=== PATIENT | female | born 1935 | race Caucasian/White ===

== ENCOUNTER → 2018-01-04 08:49 | Outpatient (CLI) | payer MEDICARE, OTHER, SELFPAY ==
[2018-01-04 11:27] LABS: Magnesium 1.9 mg/dL (1.6-2.3)
[2018-01-06 14:33] LABS: Lipoprofile NMR SEE SEPARATE REPORTS
== END ==
PROVIDERS: PCP Family Medicine; Visit Provider Specialist
DX: E78.2 Mixed hyperlipidemia (principal); I10 Essential (primary) hypertension
CPT/HCPCS: 36415; 83704; 83735

== ENCOUNTER → 2018-02-15 15:19 | Outpatient (CLI) | payer MEDICARE, OTHER, SELFPAY ==
--- NOTE | 2018-02-15 | DI.MRI.S_ITS ---
PROCEDURE: MR LUMBAR SPINE WO CON INDICATIONS: Low back and left buttock pain TECHNIQUE: Noncontrast sagittal T1 spin echo and T2 fast echo, sagittal STIR, axial T1 and T2 fast spin echo through the lumbar spine. In cases with scoliosis, additional coronal T2 fast spin echo may be performed. COMPARISON: [facility], CR, XR LUMBAR SPINE WITH OLBIQUES PLUS FLEXION EXTENSION, 02/08/2018, 10:45. Merged With [facility], MR, L-SPINE WITHOUT CONTRAST, 05/29/2015, 10:27. Merged With [facility], MR, L-SPINE WITHOUT CONTRAST, 06/07/2014, 18:29. Merged With [facility], MR, L-SPINE WITHOUT CONTRAST, 09/07/2013, 18:30. FINDINGS: Image quality: Excellent. Alignment and Curvature: There is normal bony alignment. Bone Marrow: Marrow is of normal overall signal. No acute vertebral body compression fractures. Spinal Cord: Conus medullaris terminates at the L1 level. Visualized cord demonstrates normal signal and size. Paraspinous Soft Tissues: No paravertebral masses. L1-L2: The superior endplate of L1 shows a further depression with reference to the prior MR scanning from 05/29/15 and also L1 vertebral body bone cement can be seen properly positioned within the central marrow space. Marrow edema is not associated with this mild interval worsening, and therefore it is presumed that some degree of worsening of the previously present compression fracture in that area has occurred between 2014 in the current examination. There is no significant secondary spinal stenosis or foraminal stenosis at this level.. L2-L3: Centrally positioned at L2 vertebroplasty/kyphoplasty bone cement and morphology of the vertebral body has not changed from 2015. A slight posterior disc bulge is present at this level, and facet osteoarthritis is slightly greater on the left than the right with resultant hyperostosis producing mild to moderate left and only mild right foraminal stenosis. Spinal stenosis is not present. L3-L4: The L3 vertebral body shows stable appearing morphology and centrally positioned bone cement. As was seen at the level above left greater than right facet osteoarthritis is present resulting in mild to moderate left and mild right foraminal stenosis. No significant spinal stenosis. L4-L5: Moderately severe degenerative disc disease, as was previously the case. Disc height reduction and desiccation with a small posterior broad-based transverse disc bulge has not worsened. Facet osteoarthritis is moderately severe at this level with osseous hypertrophy resulting in symmetric moderate foraminal stenosis. No disc herniation is present but there is mild concentric spinal stenosis due to the factors noted above. L5-S1: Moderately severe degenerative disc disease with a posterior disc protrusion that is greater than that previously present in 2015, centered at and just to the right of midline and producing only mild spinal stenosis. Moderate facet osteoarthritis is present with asymmetric osseous hypertrophy on the left, producing moderate left and mild right foraminal stenosis with potential for asymmetric left greater than right L5 radiculopathy. IMPRESSION: No acute trauma found. Prior vertebral compression fractures are present with vertebral plasty/kyphoplasty bone cement centrally positioned at L1-L3. The L1 vertebral body compression fracture has mildly worsened from 2015 but shows no current marrow space edema and therefore this represents a chronic but interval change. The degenerative disc disease and facet osteoarthritis present along the lumbosacral spine has mildly worsened and best seen at L5-S1. Relatively mild spinal stenosis is present. No disc herniation is found. Multilevel potential for radiculopathy is present as noted, greater on the left than the right. Dictated by: Osman Tong M.D. on 02/15/2018 at 17:14 Approved by: Osman Tong M.D. on 02/15/2018 at 17:23
== END ==
PROVIDERS: Family Provider Family Medicine; PCP Family Medicine; Visit Provider Physical Medicine & Rehabilitation Pain Medicine
DX: M54.5 Low back pain (principal); M48.56XD Collapsed vertebra, not elsewhere classified, lumbar region, subsequent encounter for fracture with routine healing; M51.37 Other intervertebral disc degeneration, lumbosacral region; M47.896 Other spondylosis, lumbar region
CPT/HCPCS: 72148

== ENCOUNTER → 2018-07-06 07:26 | Outpatient (CLI) | payer MEDICARE, OTHER, SELFPAY ==
[2018-07-06 08:26] LABS: Alanine Aminotransferase 38 IU/L (9-52); Albumin 4.1 g/dL (3.5-5.0); Albumin Globulin Ratio 1.7 (1.0-2.8); Alkaline Phosphatase 91 U/L (38-126); Aspartate Aminotransferase 30 IU/L (14-36); BUN Creatinine Ratio 18.6 (6-22); Bilirubin Total 0.6 mg/dL (0.2-1.3); Blood Urea Nitrogen 13 mg/dL (7-17); Carbon Dioxide 30 mmol/L (22-32); Chloride 99 mmol/L (98-107); Cholesterol 124 mg/dL (140-199); Estimated Glomerular Filt Rate > 60.0 mL/min (>60); Globulin 2.4 g/dL (1.7-4.1); Glucose 101 mg/dL (80-110); HDL Cholesterol 61 mg/dL (40-60); HEMOLYSIS < 15 (0-50); LDL Cholesterol Calculated 45 mg/dL (<100); Potassium 4.5 mmol/L (3.4-5.1); Sodium 139 mmol/L (137-145); Total Protein 6.5 g/dL (6.3-8.2); Triglycerides 89 mg/dL (35-150)
== END ==
PROVIDERS: Family Provider Family Medicine; PCP Family Medicine; Visit Provider Specialist
DX: E78.2 Mixed hyperlipidemia (principal); I10 Essential (primary) hypertension; R00.2 Palpitations
CPT/HCPCS: 36415; 80053; 80061; 83735

== ENCOUNTER 2018-08-24 06:36 | Day surgery (SDC) | payer MEDICARE, OTHER, SELFPAY ==
[2018-08-24] VITALS (8 sets, daily range): BP systolic 99–153; BP diastolic 52–78; PULSE 66–87; RESP 12–18; TEMP 36–36.8; O2SAT 92–96; BMI 28.3
--- NOTE | 2018-08-24 | PATH_ITS ---
[facility] Accession Number: [id number] . 01 Material submitted: . PART A: TRANSVERSE COLON POLYP BIOPSY PART B: ASCENDING COLON POLYP BIOPSIES X2 . 02 Diagnosis: A. Transverse Colon, Polyp, Biopsy: Tubular adenoma. . B. Ascending Colon, Polyp x2, Biopsies: Tubular adenoma in three of four fragments. V/08/25/2018 . 02 Electronically signed: . Luisa Cano MD, Pathologist NPI- [id number] . 01 Gross description: . Received two formalin-filled containers both labeled with the patient's name. . A. In a container labeled transverse colon are three 0.1 to 0.4 cm portions of tissue. Entirely submitted in cassette A. B. In a container labeled ascending colon polyp X2 are four 0.1 to 0.3 cm portions of tissue. Entirely submitted in cassette B. ([facility]:[id number]) /[facility] . 02 Pathologist provided ICD-10: D12.2, D12.3 . 02 CPT . 304006, [id number] Performed at: 01 [facility] [address], [place], [place] [id number] MD Maxx Degroot MD Phone: [phone] Performed at: 02 [facility] [address] [place], [place] [id number] MD Luisa Cano MD Phone: [phone]
[2018-08-24] MEDS: SODIUM CHLORIDE 0.9% 1,000 ML 200 ML IV (07:30)
--- NOTE | 2018-08-24 08:09 | PM.HP.1 ---
History of Present Illness Date Patient Seen: 08/24/18 Time Patient Seen: 08:00 Chief complaint: colonoscopy [id number] Narrative: Patient is a woman his last colonoscopy was over 10 years ago. She has a personal history of polyps and a sister with metastatic GI tract malignancy. Patient History Medical History Hypertension (Chronic) Breast cancer (Resolved) History of PR (myocardial infarction) (Resolved) Heart valve stenosis (Chronic) Surgical History S/P lumpectomy, left breast (Resolved) Status post left breast lumpectomy (Resolved) Family & Social History Social History: household members none Tobacco & Substance use: Smoking Status Never smoker alcohol intake current Meds Home Medications Medication Instructions Recorded Confirmed Type fluoxetine [Prozac] 20 mg PO QDAY #0 07/21/12 07/07/18 History levothyroxine [Tirosint] 75 mcg PO Q DAY #0 07/21/12 07/07/18 History amitriptyline 25 mg tablet 25 mg PO DAILY 07/07/18 07/07/18 History aspirin 81 mg tablet,delayed 81 mg PO DAILY 07/07/18 07/07/18 History release atorvastatin 80 mg tablet 80 mg PO DAILY 07/07/18 07/07/18 History carvedilol 12.5 mg tablet 12.5 mg PO BID 07/07/18 07/07/18 History magnesium oxide 500 mg capsule 500 mg PO DAILY cap 07/07/18 07/07/18 History spironolactone 12.5 mg PO QAM 08/24/18 08/24/18 History Allergies Allergy/AdvReac Type Severity Reaction Status Date / Time morphine Allergy Intermediate VOMITING, Verified 08/24/18 07:34 HIVES metoprolol Allergy Unknown KIDNEY Verified 08/24/18 07:34 FAILURE meperidine AdvReac Mild NAUSEA Verified 08/24/18 07:34 Review of Systems Review of Systems Short of breath with minimal exertion. Has known valvular disease and has been told she will be getting a heart valve at some point. No black or bloody bowel movements. No seizures or blackouts. Does not get chest pain but feels or heart flutter occasionally. Exam Vital Signs (past 8 hours): - 08/24/18 07:35 Temperature 97.5 F L Pulse Rate 75 Respiratory Rate 16 Blood Pressure 153/78 H Pulse Oximetry 96 Oxygen Delivery Method Room Air Narrative Exam Narrative: Obese pleasant woman in no apparent distress. Lungs are clear to auscultation no rales or rhonchi. Heart regular rate and rhythm. A 3/6 systolic murmur heard best at the base. Abdomen is soft nontender without mass. Alert and oriented x3. Assessment & Plan Plan: Assessment/Plan Narrative: Patient for screening colonoscopy. She is 5 years overdue and is aware of that. She just did not come back sooner. I have discussed the procedure and the rationale with the patient including risks of bleeding, perforation which would necessitate a major operation, failure to find remove all lesions and the potential to tattoo. They appeared to understand and wished to proceed. I also talked to her about the potential for heart problems. She does want to be resuscitated should her heart stop.
--- NOTE | 2018-08-24 08:14 | PM.PREOP ---
Pre-operative Note Interval Note History & Physical reviewed/Exam performed by Physician: Yes Changes to H&P: No ASA Class (for procedural sedation): III
[2018-08-24] MEDS: ONDANSETRON 4 MG/2 ML INJ IV (08:18)
[2018-08-24] MEDS: fentaNYL 250 MCG/5 ML INJ IV (08:50)
[2018-08-24] MEDS: MIDAZOLAM 5 MG/5 ML VIAL IV (08:50)
--- NOTE | 2018-08-24 09:03 | PM.OP.ENDO ---
Operative Date/Time/Diagnoses Date of procedure: 08/24/18 Time of procedure: 09:03 Pre-op diagnosis: Screening examination. Personal history of polyps. Positive family history of GI tract cancer. Post-op diagnosis: same (Multiple polyps) Procedure & Clinicians Study performed: Colonoscopy with cold biopsy and hot snare polypectomy Same procedure as scheduled: Yes Indications: Screening Surgeon: Feroz Galvez Procedure Notes SCOAP/Timeout: Performed Procedure in detail: The patient was placed in the left lateral decubitus position and underwent IV sedation directed by the surgeon consisting of fentanyl and Versed. Digital exam was unremarkable. The scope was inserted and advanced through the rectum into the sigmoid, descending, transverse, and ascending colon. I noted scattered diverticulosis. In the ascending colon near the ileocecal valve there were 2 small polyps. One was snared with a hot snare and the other biopsied and snared to complete removal. He has replaced in the same container due to proximity. The cecum was reached identified by the ileocecal valve and the appendiceal opening . The scope was gradually brought out. To Polyps were found at 35 cm. These were removed with snare and biopsy. They also were placed in the same container.. The scope ultimately was retroflexed in the rectum. The appearance was normal. The scope was removed and the patient tolerated the procedure well Scope withdrawal time: 11.5 min Sedation minutes: 45 Findings: diverticulosis (Scattered) and polyp (For small polyps) Specimen(s): other (Polyps) Complications: none Recommendations: Colonscopy in 5 years (If in good health.) Follow up: as needed Disposition: PACU
--- NOTE | 2018-08-24 09:49 | SUR.PHASEII ---
Assited pt with getting dressed. Gave her mesh underwear and a pad . Pt taking po fluids without difficulty. pt denies any complaints . Denies any nausea
== END 2018-08-24 10:01 | disposition home or self-care (01) ==
PROVIDERS: Family Provider Family Medicine; PCP Family Medicine; Visit Provider Specialist
PROC: 0DJD8ZZ Inspection of Lower Intestinal Tract, Via Natural or Artificial Opening Endoscopic (ICD-10-PCS; CPT 45378; principal; 2018-08-24 07:45)
DX: Z86.010 Personal history of colon polyps (principal); Z80.0 Family history of malignant neoplasm of digestive organs; K57.30 Diverticulosis of large intestine without perforation or abscess without bleeding; I10 Essential (primary) hypertension; I25.2 Old myocardial infarction; D12.2 Benign neoplasm of ascending colon; D12.3 Benign neoplasm of transverse colon
CPT/HCPCS: 45385; 45380; 88305; 99152; 99153; J2250; J2405; J3010

== ENCOUNTER → 2018-09-07 09:32 | Outpatient (CLI) | payer MEDICARE, OTHER, SELFPAY ==
--- NOTE | 2018-09-07 | DI.ECHO.S_ITS ---
[facility] +---------+ [facility] +---------+ : : [address] [place] : : : : [id number] : : : : Phone: [phone]+ Echocardiogram Report + + :Name: ADEEL LAGUNAS Study Date: 09/07/2018 Height: 67 in : :[facility] Exam Location: [facility] Weight: 189 lb : : Gender: Female BSA: 2.0 m2 : :: 1935 Age: 83 yrs BP: 142/80 mmHg: :Reason For Study: AORTIC STENOSIS : : Performed By: Ankush Del Real : :Referring: ALCON SON : + + Interpretation Summary Left ventricular systolic function is normal without focal wall motion abnormalities with the ejection fraction visually estimated to be 60-65% and appears slightly less vigorous compared to the previous study. Diastolic parameters suggest a pseudonormalization pattern, consistent with probable elevated filling pressures but this is unchanged compared to the previous study. The right ventricle is normal in size and function and appears unchanged compared to the previous study. The right ventricular systolic pressure is estimated to be at least 26 mmHg based on an estimated right atrial pressure of 3 mm Hg, and is slightly lower compared to the previous study. The left atrium is borderline dilated while right atrial size is normal. The left atrium has mildly decreased in size since the prior echo exam. There is mild mitral regurgitation that is slightly more prominent compared to the previous study. There is mild tricuspid regurgitation and mild pulmonic regurgitation that are unchanged compared to the previous study. There is severe aortic stenosis that is slightly progressive compared to the previous study, now with a peak aortic velocity of 4.1 m/sec compared to 4.0 m/s on the previous study. The aortic valve mean gradient is 41 mmHg compared to 32 mmHg previously and the calculated aortic valve area is now 0.7 temperature control inspector? compared to 0.9 temperature control inspector? with a severity ratio of 0.23 compared to 0.31 previously. There is trace aortic regurgitation that is unchanged compared to the previous study. The ascending aorta is mildly enlarged and measures slightly larger compared to the previous study. Procedure: A two-dimensional transthoracic echocardiogram with color flow and Doppler was performed. The study quality was technically adequate. Comparison is made with the echocardiogram of 10/02/17. The patient was in normal sinus rhythm during the exam. Left Ventricle: The left ventricle is normal in size. Left ventricular wall thickness is mildly increased. Left ventricular systolic function is normal without focal wall motion abnormalities. The ejection fraction is estimated to be 60-65%. This is slightly less vigorous compared to the previous study. Diastolic parameters suggest a pseudonormalization pattern, consistent with probable elevated filling pressures. This is unchanged compared to the previous study. Right Ventricle: The right ventricle is normal in size and function. This is unchanged compared to the previous study. Atria: The left atrium is borderline dilated. The left atrium has mildly decreased in size since the prior echo exam. Right atrial size is normal. The interatrial septum is intact with no evidence for an atrial septal defect. Mitral Valve: There is mild mitral annular calcification. There is mild mitral regurgitation. This is slightly more prominent compared to the previous study. Aortic Valve: The aortic valve is trileaflet. The aortic valve is severely calcified. Leaflet mobility is severely reduced. There is severe aortic stenosis. This is slightly progressive compared to the previous study. The peak aortic velocity is 4.1 m/sec. The peak aortic velocity on the previous exam was 4.0 m/sec. The aortic valve mean gradient is 41 mmHg. The calculated aortic valve area is 0.72 cm2. There is trace aortic regurgitation. This is unchanged compared to the previous study. Tricuspid Valve: The tricuspid valve is normal in structure and function. There is mild tricuspid regurgitation. This is unchanged compared to the previous study. The right ventricular systolic pressure is estimated to be at least 26 mmHg based on an estimated right atrial pressure of 3 mm Hg. This is slightly lower compared to the previous study. Pulmonic Valve: The pulmonic valve is normal in structure and function. There is mild pulmonic regurgitation. This is unchanged compared to the previous study. Great Vessels: The aortic root is normal size. The ascending aorta is mildly enlarged. This is slightly larger compared to the previous study. The aortic arch is normal in size. This is unchanged compared to the previous study. The pulmonary artery is normal size. The IVC is of normal diameter and collapses greater than 50% with a sniff. This suggests a low right atrial pressure of 3 mm Hg. Pericardium/ Pleura There is no pericardial effusion. There is no pleural effusion. MMode/2D Measurements & Calculations LVIDd: 4.4 cm LVOT diam: 2.0 cm LVIDs: 2.0 cm Ao root diam: 3.2 cm FS: 55.4 % Aortic Jxn: 2.7 cm EPSS: 0.17 cm asc Aorta Diam: 3.5 cm IVSd: 1.2 cm Ao Arch Diam (Prox Trans): 2.5 cm LVPWd: 1.0 cm LV zurita. diameter/BSA (cm/m^2): 2.2 LV sys. diameter/BSA (cm/m^2): 1.00 LA dimension: 4.4 cm RA long axis: 5.5 cm LA A2 area: 22.0 cm2 RA area: 18.0 cm2 LA A4 area: 21.6 cm2 RA vol: 50.1 ml LA length (vol): 5.9 cm RA : 25.4 ml/m2 LA vol: 67.9 ml IVC diam: 1.8 cm LA vol index: 34.4 ml/m2 Doppler Measurements & Calculations Ao V2 max: 410.2 cm/sec LVOT Max Dann: 98.2 cm/sec Ao V2 mean: 299.9 cm/sec LV V1 max P.9 mmHg Ao max P.3 mmHg LV V1 VTI: 25.2 cm Ao mean P.9 mmHg BRI(I,D): 0.72 cm2 Ao V2 VTI: 110.9 cm BRI(V,D): 0.76 cm2 sev ratio: 0.23 BRI indexed to BSA (cm^2/m^2): 0.37 MV E max dann: 110.2 cm/sec TR max dann: 237.4 cm/sec MV A max dann: 97.0 cm/sec TR max P.5 mmHg MV E/A: 1.1 PA V2 max: 78.6 cm/sec Med Peak E' Dann: 4.1 cm/sec PA V2 mean: 56.1 cm/sec E/E' med: 26.7 PA mean P.4 mmHg Lat Peak E' Dann: 4.1 cm/sec PA pr(Accel): 29.1 mmHg E/E' lat: 26.8 PA Accel Time: 0.10 sec E/e' average: 26.8 MV dec time: 0.22 sec SV(LVOT): 80.0 ml Reading Physician:PM
== END ==
PROVIDERS: PCP Family Medicine; Visit Provider Specialist
DX: I08.3 Combined rheumatic disorders of mitral, aortic and tricuspid valves (principal)
CPT/HCPCS: 93306

== ENCOUNTER → 2018-10-08 13:24 | Outpatient (CLI) | payer MEDICARE, OTHER, SELFPAY ==
--- NOTE | 2018-10-08 | DI.MG.S_ITS ---
BILATERAL DIGITAL SCREENING MAMMOGRAM 3D/2D WITH CAD POST LUMPECTOMY: 10/08/2018 CLINICAL: Routine screening. Personal history of left breast cancer. Comparison is made to exams dated: 10/05/2017 mammogram, 09/01/2016 mammogram, and 08/20/2015 mammogram - [facility]. There are scattered fibroglandular elements in both breasts. Current study was also evaluated with a Computer Aided Detection (CAD) system. There are benign post operative findings in the left breast. There also are benign vascular calcifications in both breasts. No significant masses, calcifications, or other findings are seen in either breast. There has been no significant interval change. IMPRESSION: There is no mammographic evidence of malignancy. A 1 year screening mammogram is recommended. This exam was interpreted at Station ID: [id number]. NOTE: For mammograms, a report in lay terms will be sent to the patient. Approximately 15% of breast malignancies will not be visualized mammographically. In the management of a palpable breast mass, a negative mammogram must not discourage biopsy of a clinically suspicious lesion. Electronically Signed By: Lucila stephenson/ethel:10/08/2018 16:05:29 letter sent: Normal Exam ACR BI-RADS Category 2: Benign Finding(s) 3342F
== END ==
PROVIDERS: Family Provider Family Medicine; PCP Family Medicine; Visit Provider Family Medicine
DX: Z12.31 Encounter for screening mammogram for malignant neoplasm of breast (principal); Z85.3 Personal history of malignant neoplasm of breast
CPT/HCPCS: 77063; 77067

== ENCOUNTER 2019-01-19 14:56 | Emergency (ER) | payer MEDICARE, OTHER, SELFPAY ==
[2019-01-19 15:01] VITALS: BP 155/79; PULSE 82; RESP 14; TEMP 36.2; O2SAT 96; BMI 28.1
--- NOTE | 2019-01-19 16:13 | ED.EXTPRO ---
HPI - Extremity Problem General Chief complaint: Extremity Problem,Nontraumatic Stated complaint: left hand is cold, states valve replacement 5wks Time Seen by Provider: 01/19/19 15:21 Source: patient Mode of arrival: ambulatory Limitations: no limitations History of Present Illness HPI Narrative: Patient comes emergency department complaining of her left hand feeling cold. Patient has no history of peripheral vascular disease, but has had radiation to the left breast, and recently had to have peripheral access in that upper extremity when she had a valve replacement 5 weeks ago. Patient states that she has been feeling fine since the valve replacement, but when her hand started to feel cold today, she called her doctor's office, and they told her to come here that checked out. Patient denies any swelling in the upper extremity. She denies any discoloration. No injury. No numbness or tingling. No weakness. No other complaints at this time. Related Data Home Medications Medication Instructions Recorded Confirmed fluoxetine [Prozac] 20 mg PO QDAY #0 07/21/12 07/07/18 levothyroxine [Tirosint] 75 mcg PO Q DAY #0 07/21/12 07/07/18 amitriptyline 25 mg tablet 25 mg PO DAILY 07/07/18 07/07/18 aspirin 81 mg tablet,delayed 81 mg PO DAILY 07/07/18 07/07/18 release atorvastatin 80 mg tablet 80 mg PO DAILY 07/07/18 07/07/18 carvedilol 12.5 mg tablet 12.5 mg PO BID 07/07/18 07/07/18 magnesium oxide 500 mg capsule 500 mg PO DAILY cap 07/07/18 07/07/18 spironolactone 12.5 mg PO QAM 08/24/18 08/24/18 Allergies Allergy/AdvReac Type Severity Reaction Status Date / Time morphine Allergy Intermediate VOMITING, Verified 01/19/19 15:01 HIVES metoprolol Allergy Unknown KIDNEY Verified 01/19/19 15:01 FAILURE meperidine AdvReac Mild NAUSEA Verified 01/19/19 15:01 Review of Systems Constitutional Denies chills, Denies fever(s), Denies lethargy and Denies weakness Eyes Denies change in vision, Denies eye discharge, Denies irritation and Denies loss of vision ENT Ears, Nose, Mouth, and Throat: Denies change in voice, Denies neck pain and Denies sore throat Cardiovascular Denies chest pain, Denies irregular heart rhythm, Denies lightheadedness, Denies palpitations, Denies dyspnea, Denies dyspnea on exertion and Denies orthopnea Respiratory Denies cough, Denies dyspnea, Denies dyspnea on exertion and Denies wheezing Gastrointestinal Gastrointestinal: Denies abdominal pain, Denies change in bowel habits, Denies diarrhea, Denies nausea and Denies vomiting Genitourinary Denies hematuria, Denies flank pain, Denies urinary incontinence and Denies urinary urgency Musculoskeletal Denies neck pain Integumentary/Breasts Denies pruritus, Denies erythema, Denies rash and Denies wounds Neurologic Denies confusion, Denies loss of vision and Denies weakness Comments: Altered sensation left hand Psychiatric Denies anxiety, Denies confusion, Denies depression, Denies homicidal ideation and Denies suicidal ideation Endocrine Denies palpitations Hematologic/Lymphatic Denies easy bruising Allergic/Immunologic Denies wheezing PFSH Medical History Heart valve stenosis (Chronic) Hypertension (Chronic) Breast cancer (Resolved) History of [place] (myocardial infarction) (Resolved) Surgical History S/P lumpectomy, left breast (Resolved) Status post left breast lumpectomy (Resolved) Family History Mother Heart disease Diabetes mellitus Sister Cancer Hyperlipidemia Stroke Social History household members: none occupational status: previously employed Smoking Status: Never smoker alcohol intake: current substance use type: does not use Family History Mother Heart disease Diabetes mellitus Sister Cancer Hyperlipidemia Stroke Social History household members: none occupational status: previously employed Smoking Status: Never smoker alcohol intake: current substance use type: does not use Exam Initial Vital Signs Initial Vital Signs: Vital Signs Temperature 97.2 F L 01/19/19 15:01 Pulse Rate 82 01/19/19 15:01 Respiratory Rate 14 01/19/19 15:01 Blood Pressure 155/79 H 01/19/19 15:01 Pulse Oximetry 96 01/19/19 15:01 Const General: cooperative and well developed Nutritional Appearance: well nourished Orientation: alert, awake, oriented x3 and not confused [facility] Head: normocephalic and atraumatic Ears: external ears normal and TM's normal bilaterally Nose: external nose normal and No nasal discharge Face and sinus: sinuses nontender, face symmetric, no sinus tenderness and No dry mucous membranes Mouth: oral mucosae normal and moist mucous membranes Teeth and gingiva: dentition normal Throat: tonsils normal and uvula midline Eyes General: appearance normal, both eyes and all related structures Eyelids: eyelids normal Conjunctivae: conjunctivae normal Sclera: sclerae normal Pupils: PERRL EOM: EOM intact bilaterally Neck Neck: normal visual inspection, trachea midline, No lymphadenopathy, No midline deformity and No JVD Lymphatic: No lymphedema Chest Chest: normal inspection of the chest Resp Effort & Inspection: normal respiratory effort, able to speak in complete sentences, no respiratory distress and no use of accessory muscles Auscultation: clear to auscultation bilaterally, no rales, no rhonchi and no wheezes Cardio Rate: regular rate Rhythm: regular rhythm Heart Sounds: no click, no gallops, no murmurs and no rubs Pulses: normal peripheral pulses (Bounding radial and ulnar pulses left wrist) GI Inspection: non-distended Palpation: soft, no hepatosplenomegaly, No guarding, No pulsatile mass and No tender Auscultation: normal bowel sounds Back/Spine/Pelvis Back: No CVA tenderness Cervical Spine: cervical ROM normal and No pain with cervical ROM Thoracic/Lumbar Spine: thoracic and lumbar spine normal to inspection Skin General: no rashes or lesions noted, No jaundice and No petechiae Other: Patient has normal and symmetrical color of her bilateral hands. She has plump veins. Skin is very warm, and temperature symmetrical in bilateral hands. Neuro General: alert, awake, oriented x3, gait normal and no focal motor deficits Speech: speech normal Other: No motor sensory deficits of the left hand. Extrem General: full ROM, no clubbing, cyanosis or edema, no pedal edema and no calf tenderness Psych Appearance: well kempt Mental Status: mental status grossly normal Attitude: cooperative Thought Content: normal and suicidality Judgment: judgment good Course Course Narrative: Patient was evaluated both by palpation of pulses and by Doppler, which demonstrated for the patient the brisk pulses she had in her wrist and brachial area. I discussed with her that there is no evidence whatsoever of an arterial occlusion causing her sense of cold hand. There is no edema or discoloration, and the patient has brisk pulses. No emergent condition is identified at this time. We have discussed the usual indications for return. Vital Signs - 8 hr 01/19/19 15:01 Temperature 97.2 F L Pulse Rate 82 Respiratory Rate 14 Blood Pressure 155/79 H Pulse Oximetry 96 MDM - Extremity (Nontraumatic) Medical Records Attestation: I reviewed the patient's medical records. Discharge Plan Departure Patient Disposition: Home Clinical Impression: Cold hand without peripheral vascular disease Activity Restrictions/Additional Instructions: Your pulses in your left arm and wrist are excellent. There is no evidence of arterial occlusion as a cause of your sensation of cold hand. Additionally, your hand actually feels quite warm, and has good color which is equal with the other hand. It is not clear exactly why your hand feels cold to you, but there is no serious condition causing this at this time. Please follow up with your primary care physician, as needed. Prescriptions: No Action fluoxetine [Prozac] 10 MG capsule 20 mg PO QDAY Qty: 0 RF: 0 levothyroxine [Tirosint] 75 MCG capsule 75 mcg PO Q DAY Qty: 0 RF: 0 amitriptyline 25 mg tablet 25 mg PO DAILY RF: 0 aspirin 81 mg tablet,delayed release (DR/EC) 81 mg PO DAILY RF: 0 atorvastatin 80 mg tablet 80 mg PO DAILY RF: 0 carvedilol 12.5 mg tablet 12.5 mg PO BID RF: 0 magnesium oxide 500 mg capsule 500 mg PO DAILY RF: 0 spironolactone 25 mg Tablet 12.5 mg PO QAM RF: 0 Referrals: Jamil Garcia MD [Primary Care Provider] -
[2019-01-19 16:23] VITALS: PULSE 81; RESP 16; O2SAT 99
== END 2019-01-19 16:10 | disposition home or self-care (01) ==
PROVIDERS: Emergency Provider Emergency Medicine; Family Provider Family Medicine; PCP Family Medicine
DX: R20.9 Unspecified disturbances of skin sensation (principal); Z95.2 Presence of prosthetic heart valve
CPT/HCPCS: 99282

== ENCOUNTER 2019-04-06 10:00 | Outpatient (RCR) | payer MEDICARE, OTHER, SELFPAY | END 2019-04-13 10:53 | disposition home or self-care (01) | LOC: CAR 10:00 | PROVIDERS: Family Provider Family Medicine; PCP Family Medicine; Visit Provider Internal Medicine Interventional Cardiology | DX: Z95.2 Presence of prosthetic heart valve (principal) | CPT/HCPCS: 93798 ==

== ENCOUNTER → 2019-06-02 09:08 | Outpatient (CLI) | payer MEDICARE, OTHER, SELFPAY ==
[2019-06-02 10:38] LABS: Alanine Aminotransferase 30 IU/L (9-52); Albumin Globulin Ratio 1.4 (1.0-2.8); Alkaline Phosphatase 88 U/L (38-126); Aspartate Aminotransferase 30 IU/L (14-36); BUN Creatinine Ratio 26.7 (6-22); Bilirubin Total 0.6 mg/dL (0.2-1.3); Blood Urea Nitrogen 16 mg/dL (7-17); Carbon Dioxide 28 mmol/L (22-32); Chloride 97 mmol/L (98-107); Estimated Glomerular Filt Rate > 60.0 mL/min (>60); Globulin 2.8 g/dL (1.7-4.1); Glucose 108 mg/dL (80-110); HEMOLYSIS < 15 (0-50); Potassium 4.2 mmol/L (3.4-5.1); Sodium 134 mmol/L (137-145); Total Protein 6.8 g/dL (6.3-8.2)
[2019-06-06 08:25] LABS: Lipoprofile NMR SEE SEPARATE REPORTS
== END ==
PROVIDERS: PCP Family Medicine; Visit Provider Specialist
DX: E78.2 Mixed hyperlipidemia (principal); R00.2 Palpitations; I10 Essential (primary) hypertension
CPT/HCPCS: 36415; 80053; 83704; 83735

== ENCOUNTER → 2019-08-13 15:30 | Outpatient (CLI) | payer MEDICARE, OTHER, SELFPAY ==
[2019-08-13 16:19] LABS: Influenza A - CEPHEID Flu A NEGATIVE (NEGATIVE); Influenza B - CEPHEID Flu B NEGATIVE (NEGATIVE)
== END ==
PROVIDERS: PCP Family Medicine; Visit Provider Physician Assistant
DX: R05 Cough (principal)
CPT/HCPCS: 87502

== ENCOUNTER 2019-09-27 18:52 | Emergency (ER) | payer MEDICARE, OTHER, SELFPAY ==
[2019-09-27 18:55] VITALS: BP 172/91; PULSE 88; RESP 18; TEMP 36.7; O2SAT 96
--- NOTE | 2019-09-27 19:05 | DI.RAD.S_ITS ---
PROCEDURE: XR CHEST 1V INDICATIONS: chest pain TECHNIQUE: One view of the chest was acquired. COMPARISON: [facility], , CHEST 2 VIEW, 11/27/2017, 13:45. FINDINGS: Surgical changes and devices: Surgical clips in the left breast. Lungs and pleura: Lungs are clear. No pleural effusions or pneumothorax. Mediastinum: Mediastinal contours appear normal. Heart size is normal. Bones and chest wall: No suspicious bony lesions. Overlying soft tissues appear unremarkable. IMPRESSION: No acute cardiopulmonary disease. Stable exam. Dictated by: Misty Suh M.D. on 09/27/2019 at 22:41 Approved by: Misty Suh M.D. on 09/27/2019 at 22:42
[2019-09-27] MEDS: ONDANSETRON 4 MG ODT PO (19:28)
[2019-09-27 19:46] LABS: Add Manual Diff / Slide Review NO; Basophils Absolute Auto 100 /uL (0-100); Basophils Percent Auto 0.6 % (0-2); Eosinophils Absolute Auto 300 /uL (0-450); Eosinophils Percent Auto 2.4 % (2-4); Hematocrit 42.7 % (36-46); Hemoglobin 14.6 g/dL (12.0-16.0); Lymphocytes Absolute Auto 1400 /uL (1100-4500); Lymphocytes Percent Auto 11.8 % (25-40); Mean Corpuscular HGB Conc 34.2 % (30-36); Mean Corpuscular Hemoglobin 32.3 PG (26-34); Mean Corpuscular Volume 94.6 fL (80-100); Monocytes Absolute Auto 600 /uL (0-900); Monocytes Percent Auto 5.3 % (3-14); Neutrophils Absolute Auto 9800 /uL (1500-7000); Neutrophils Percent Auto 79.9 % (50-75); Platelet Count 215 X10^3/uL (150-400); Red Blood Cell Count 4.51 X10^6/uL (4.0-5.2); Red Cell Distribution Width 14.3 % (11.6-14.8); White Blood Cell Count 12.3 X10^3/uL (4.5-11.0)
[2019-09-27 19:52] LABS: INR 1.1 (0.9-1.3); Prothrombin Time 12.3 SECONDS (10.1-12.7)
[2019-09-27 19:55] LABS: PTT Partial Thromboplastin Tim 30 SECONDS (26.4-36.2)
[2019-09-27 19:56] LABS: Alanine Aminotransferase 28 IU/L (<35); Albumin 4.8 g/dL (3.5-5.0); Albumin Globulin Ratio 1.4 (1.0-2.8); Alkaline Phosphatase 106 U/L (38-126); Aspartate Aminotransferase 31 IU/L (14-36); BUN Creatinine Ratio 22.9 (6-22); Bilirubin Total 0.7 mg/dL (0.2-1.3); Blood Urea Nitrogen 16 mg/dL (7-17); Calcium 9.6 mg/dL (8.4-10.2); Carbon Dioxide 29 mmol/L (22-32); Chloride 94 mmol/L (98-107); Creatine Kinase 71 U/L (30-135); Estimated Glomerular Filt Rate > 60.0 mL/min (>60); Globulin 3.4 g/dL (1.7-4.1); Glucose 110 mg/dL (80-110); HEMOLYSIS < 15 (0-50); Lipase 77 U/L (23-300); Potassium 4.1 mmol/L (3.4-5.1); Sodium 133 mmol/L (137-145); Total Protein 8.2 g/dL (6.3-8.2)
[2019-09-27 20:03] VITALS: BP 143/78; PULSE 72; RESP 18; O2SAT 97
[2019-09-27 20:08] LABS: Troponin I < 0.012 ng/mL (0.01-0.034)
--- NOTE | 2019-09-27 20:18 | ED.DIZZY ---
HPI - Dizziness General Chief Complaint: Dizziness Stated Complaint: Motion Sick and High BP Time Seen by Provider: 09/27/19 19:00 Source: patient and family Mode of arrival: Ambulatory Limitations: no limitations History of Present Illness HPI Narrative: 84-year-old female with cardiac history presents with some fogginess in her head and dizziness when she moves her head. She denies any chest pain, shortness of breath or palpitations. She has no fever, chills or injury. She has been battling a runny nose, sneezing and some upper respiratory symptoms for a few weeks. She has had symptoms like this multiple times in the past. She denies any blurred vision or trouble with speech. She denies any focal neurologic findings such as numbness, tingling or weakness. Her dizziness is worse when she moves her head, leans forward and improves when she remains still and closes her eyes. MD complaint: dizziness Onset (ago): hour(s) Timing: sudden onset Description: sense of movement History of similar episodes: Yes History of trauma: No Severity: moderate Relieving factors: remaining still Exacerbating factors: movement Related Data Home Medications Medication Instructions Recorded Confirmed fluoxetine [Prozac] 20 mg PO QDAY #0 07/21/12 08/13/19 levothyroxine [Tirosint] 75 mcg PO Q DAY #0 07/21/12 08/13/19 amitriptyline 25 mg tablet 25 mg PO DAILY 07/07/18 08/13/19 aspirin 81 mg tablet,delayed 81 mg PO DAILY 07/07/18 08/13/19 release atorvastatin 80 mg tablet 80 mg PO DAILY 07/07/18 08/13/19 carvedilol 12.5 mg tablet 12.5 mg PO BID 07/07/18 08/13/19 magnesium oxide 500 mg capsule 500 mg PO DAILY cap 07/07/18 08/13/19 spironolactone 12.5 mg PO QAM 08/24/18 08/13/19 Previous Rx's Medication Instructions Recorded albuterol sulfate 90 mcg/actuation 2 puff INHALATION Q4-6H PRN #8.5 08/13/19 aerosol inhaler gram benzonatate 100 mg capsule 100 mg PO BID PRN #14 cap 08/13/19 Allergies Allergy/AdvReac Type Severity Reaction Status Date / Time morphine Allergy Intermediate VOMITING, Verified 09/27/19 18:58 HIVES metoprolol Allergy Unknown KIDNEY Verified 09/27/19 18:58 FAILURE meperidine AdvReac Mild NAUSEA Verified 09/27/19 18:58 Review of Systems Constitutional Constitutional: Denies chills, Denies fatigue, Denies fever(s), Denies frequent falls, Denies lethargy and Denies weakness Eyes Eyes: Denies change in vision, Denies eye discharge, Denies irritation and Denies loss of vision ENT Ears, Nose, Mouth, and Throat: Denies change in voice, Reports dizziness, Denies neck pain, Denies sore throat and Denies throat swelling Cardiovascular Cardiovascular: Denies chest pain, Denies irregular heart rhythm, Denies lightheadedness, Denies palpitations, Denies dyspnea, Denies dyspnea on exertion and Denies orthopnea Respiratory Respiratory: Denies cough, Denies dyspnea, Denies dyspnea on exertion and Denies wheezing Gastrointestinal Gastrointestinal: Denies abdominal pain, Denies change in bowel habits, Denies diarrhea, Denies nausea and Reports vomiting (one episode following more intense dizzy episode) Genitourinary Genitourinary: Denies hematuria, Denies flank pain, Denies urinary incontinence and Denies urinary urgency Musculoskeletal Musculoskeletal: Denies back pain, Denies muscle weakness, Denies neck pain, Denies numbness and Denies tingling Integumentary/Breasts Skin/Breast: Denies pruritus, Denies erythema, Denies rash and Denies wounds Neurologic Neurologic: Denies behavioral changes, Denies confusion, Reports dizziness, Denies frequent falls, Denies loss of vision, Denies numbness, Denies tingling and Denies weakness Psychiatric Psychiatric: Denies anxiety, Denies behavioral changes, Denies confusion, Denies depression, Denies homicidal ideation and Denies suicidal ideation Endocrine Endocrine: Denies fatigue, Denies flushing and Denies palpitations Hematologic/Lymphatic Hematologic/Lymphatic: Denies easy bruising Allergic/Immunologic Allergic/Immunologic: Denies urticaria, Denies throat swelling and Denies wheezing Patient History Medical History Breast cancer (Resolved) Heart valve stenosis (Chronic) History of [place] (myocardial infarction) (Resolved) Hypertension (Chronic) Surgical History S/P lumpectomy, left breast (Resolved) Status post left breast lumpectomy (Resolved) Family History Mother Heart disease Diabetes mellitus Sister Cancer Hyperlipidemia Stroke Social History household members: none occupational status: previously employed Smoking Status: Never smoker alcohol intake: current substance use type: does not use Smoking Status: Never smoker alcohol intake frequency: holidays/special occasions only Substance Use Type: does not use Exam Narrative Exam Narrative: GENERAL: [84] year old patient appears stated age. Well-nourished, well-developed patient, in mild distress. Resting comfortably HEAD: Atraumatic. Normocephalic. Tender over left frontal sinus EYES: Pupils equal round and reactive. Extraocular motions intact. No scleral icterus. No injection or drainage. ENT: Nose without bleeding, purulent drainage. Throat without erythema, tonsillar hypertrophy or exudate. Airway patent. NECK: Trachea midline. Non tender CARDIOVASCULAR: Regular rate and rhythm without murmurs, gallops, or rubs. RESPIRATORY: Clear to auscultation. Breath sounds equal bilaterally. No wheezes, rales, or rhonchi. GASTROINTESTINAL: Abdomen soft, non-tender, nondistended. EXTREMITIES: No edema or joint tenderness. BACK: Nontender without deformity or crepitance. No flank tenderness. NEURO: AOx3. SKIN: No rash or erythema of visible areas NIH Stroke Scale 1a. LOC: Patient is alert and keenly responsive (0) 1b. LOC Questions: Patient answers both LOC questions accurately (0) 1c. LOC Commands: Patient performs both tasks correctly (0) 2. Best Gaze: Normal (0) 3. Visual: No visual loss (0) 4. Facial palsy: Normal symmetrical movements (0) 5. Motor arm: No drift (0) 6. Motor leg: No drift (0) 7. Limb ataxia: Absent (0) 8. Sensory: Normal (0) 9. Best language: No aphasia; normal (0) 10. Dysarthria: Normal (0) 11. Extinction and inattention: No abnormality (0) NIHSS: 0 Initial Vital Signs Initial Vital Signs: Vital Signs Temperature 98.1 F 02/11/20 18:55 Pulse Rate 88 09/27/19 18:55 Respiratory Rate 18 09/27/19 18:55 Blood Pressure 172/91 H 09/27/19 18:55 Pulse Oximetry 96 09/27/19 18:55 Course Orders Ordered: ED Orders 09/27/19 19:05 XR chest 1V Stat EKG-12 Lead Stat 09/27/19 19:40 Complete Blood Count AUTO DIFF Stat Comprehensive Metabolic Panel Stat Lipase Stat Partial Thromboplastin Time Stat Prothrombin Time INR Stat Troponin & CK Cardiac Panel Stat Discontinued Medications Meclizine HCl (Antivert) 50 mg PO NOW ONE Stop: 09/27/19 21:29 Last Admin: 09/27/19 21:33 Dose: 50 mg Documented by: CORETTA Ondansetron HCl (Zofran Odt) 4 mg PO NOW ONE Stop: 09/27/19 19:06 Last Admin: 09/27/19 19:28 Dose: 4 mg Documented by: CORETTA Vital Signs Vital signs: Vital Signs - 8 hr 09/27/19 20:03 09/27/19 22:18 Pulse Rate 72 75 Respiratory Rate 18 18 Blood Pressure [Left Arm] 143/78 H 160/78 H Pulse Oximetry 97 96 MDM - Dizziness Lab Data Result diagrams: 09/27/19 19:40 09/27/19 19:40 Labs: Lab Results 09/27/19 09/27/19 09/27/19 Range/Units 19:40 19:40 19:40 WBC 12.3 H (4.5-11.0) X10^3/uL RBC 4.51 (4.0-5.2) X10^6/uL Hgb 14.6 (12.0-16.0) g/dL Hct 42.7 (36-46) % MCV 94.6 (80-100) fL MCH 32.3 (26-34) PG MCHC 34.2 (30-36) % RDW 14.3 (11.6-14.8) % Plt Count 215 (150-400) X10^3/uL Neut % (Auto) 79.9 H (50-75) % Lymph % (Auto) 11.8 L (25-40) % [place] % (Auto) 5.3 (3-14) % Eos % (Auto) 2.4 (2-4) % Baso % (Auto) 0.6 (0-2) % Neut # (Auto) 9800 H (4952-3060) /uL Lymph # (Auto) 1400 (4320-2053) /uL [place] # (Auto) 600 (0-900) /uL Eos # (Auto) 300 (0-450) /uL Baso # (Auto) 100 (0-100) /uL PT 12.3 (10.1-12.7) SECONDS INR 1.1 (0.9-1.3) APTT 30 (26.4-36.2) SECONDS Sodium 133 L (137-145) mmol/L Potassium 4.1 (3.4-5.1) mmol/L Chloride 94 L (98-107) mmol/L Carbon Dioxide 29 (22-32) mmol/L BUN 16 (7-17) mg/dL Creatinine 0.70 (0.52-1.04) mg/dL Estimated GFR > 60.0 (>60) mL/min BUN/Creatinine Ratio 22.9 H (6-22) Glucose 110 (80-110) mg/dL Calcium 9.6 (8.4-10.2) mg/dL Total Bilirubin 0.7 (0.2-1.3) mg/dL AST 31 (14-36) IU/L ALT 28 (<35) IU/L Alkaline Phosphatase 106 (38-126) U/L Total Creatine Kinase 71 (30-135) U/L CK-MB (CK-2) TNP CK-MB (CK-2) Rel Index TNP Troponin I < 0.012 (0.01-0.034) ng/mL Total Protein 8.2 (6.3-8.2) g/dL Albumin 4.8 (3.5-5.0) g/dL Globulin 3.4 (1.7-4.1) g/dL Albumin/Globulin Ratio 1.4 (1.0-2.8) Lipase 77 (23-300) U/L Imaging Data Chest x-ray: Radiologist's Impression: [address] [address] XRay Report Signed Patient: Navya George LMR#: [id number] : 5Acct:[id number] Age/Sex: 84 / FDate of Service: 09/27/19 Loc: ED Accession Number: [id number] Procedure: XR chest 1V Ordering Provider: Yoel Franco D.O. PROCEDURE: XR CHEST 1V INDICATIONS: chest pain TECHNIQUE: One view of the chest was acquired. COMPARISON: [facility], CHEST 2 VIEW, 11/27/2017, 13:45. FINDINGS: Surgical changes and devices: Surgical clips in the left breast. Lungs and pleura: Lungs are clear. No pleural effusions or pneumothorax. Mediastinum: Mediastinal contours appear normal. Heart size is normal. Bones and chest wall: No suspicious bony lesions. Overlying soft tissues appear unremarkable. IMPRESSION: No acute cardiopulmonary disease. Stable exam. Dictated by: Misty Suh M.D. on 09/27/2019 at 22:41 Approved by: Misty Suh M.D. on 09/27/2019 at 22:42 ECG Data Interpretation: NSR, RBBB. No ectopy or ST elevation/depression, hyperacute T waves MDM Narrative Medical decision making narrative: Patient with vague, reproduceable dizziness with motion. Improves when remaining still, with eyes closed, and with meclizine. No focal findings. She reports ongoing sinus and upper respiratory complaints. Consideration of stroke, [place], and other diagnoses. We discussed head CT, but elected to hold off given such improved symptoms. Patient understands return precautions. All questions answered to her apparent satisfaction. Discharge Plan Departure Patient Disposition: Home Clinical Impression: Dizziness Discharge Date/Time: 09/27/19 22:34 Instructions: DI for Dizziness-Nonvertigo Activity Restrictions/Additional Instructions: *You have been diagnosed with [acute dizziness] *What to do: *Take medications as directed *Follow up with your primary care provider in 2-3 days, call for an appointment. Let them know you were seen in the Emergency Department and that we ask that you be seen in follow up *Return to ER if you should have any new, worsening or concerning symptoms Prescriptions: No Action benzonatate [Tessalon Perles] 100 mg capsule 100 mg PO BID PRN (Reason: cough) Qty: 14 RF: 0 albuterol sulfate 90 mcg/actuation HFA aerosol inhaler 2 puff INHALATION Q4-6H PRN (Reason: bronchospasm) Qty: 8.5 RF: 0 fluoxetine [Prozac] 10 MG capsule 20 mg PO QDAY Qty: 0 RF: 0 levothyroxine [Tirosint] 75 MCG capsule 75 mcg PO Q DAY Qty: 0 RF: 0 amitriptyline 25 mg tablet 25 mg PO DAILY RF: 0 aspirin 81 mg tablet,delayed release (DR/EC) 81 mg PO DAILY RF: 0 atorvastatin 80 mg tablet 80 mg PO DAILY RF: 0 carvedilol 12.5 mg tablet 12.5 mg PO BID RF: 0 magnesium oxide 500 mg capsule 500 mg PO DAILY RF: 0 spironolactone 25 mg Tablet 12.5 mg PO QAM RF: 0 Referrals: Donna Bran MD [Primary Care Provider] -
[2019-09-27] MEDS: MECLIZINE HCL 12.5 MG TABLET 50 MG PO (21:33)
[2019-09-27 22:18] VITALS: BP 160/78; PULSE 75; RESP 18; O2SAT 96
== END 2019-09-27 22:34 | disposition home or self-care (01) ==
PROVIDERS: Emergency Provider Emergency Medicine; PCP Student in an Organized Health Care Education/Training Program
DX: R42 Dizziness and giddiness (principal); R07.9 Chest pain, unspecified
CPT/HCPCS: 36415; 71045; 80053; 82550; 83690; 84484; 85025; 85610; 85730; 93005; 99284; 99285

== ENCOUNTER → 2019-10-13 11:09 | Outpatient (CLI) | payer MEDICARE, OTHER, SELFPAY ==
--- NOTE | 2019-10-13 | DI.MG.S_ITS ---
BILATERAL DIGITAL SCREENING MAMMOGRAM 3D/2D WITH CAD: 10/13/2019 CLINICAL: Routine screening. Comparison is made to exams dated: 10/08/2018 mammogram, 10/05/2017 mammogram, and 09/01/2016 mammogram - [facility]. There are scattered fibroglandular elements in both breasts. Current study was also evaluated with a Computer Aided Detection (CAD) system. There is an oval equal density asymmetry with an indistinct margin in the left breast middle depth superior region seen on the mediolateral oblique view only. No other significant masses, calcifications, or other findings are seen in either breast. IMPRESSION: INCOMPLETE: NEEDS ADDITIONAL IMAGING EVALUATION The oval equal density asymmetry in the left breast is indeterminate. Mediolateral and spot compression views as well as additional views with possible ultrasound are recommended. This exam was interpreted at Station ID: [id number]. NOTE: For mammograms, a report in lay terms will be sent to the patient. Approximately 15% of breast malignancies will not be visualized mammographically. In the management of a palpable breast mass, a negative mammogram must not discourage biopsy of a clinically suspicious lesion. Electronically Signed By: Maxx amin/ethel:10/13/2019 14:23:33 letter sent: Additional Imaging Needed ACR BI-RADS Category 0: Incomplete [id number]
== END ==
PROVIDERS: PCP Student in an Organized Health Care Education/Training Program; Referring Provider Student in an Organized Health Care Education/Training Program; Visit Provider Student in an Organized Health Care Education/Training Program
DX: Z12.31 Encounter for screening mammogram for malignant neoplasm of breast (principal)
CPT/HCPCS: 77063; 77067

== ENCOUNTER → 2019-10-18 14:04 | Outpatient (CLI) | payer MEDICARE, OTHER, SELFPAY ==
--- NOTE | 2019-10-18 | DI.US.S_ITS ---
ULTRASOUND OF LEFT BREAST: 10/18/2019 CLINICAL: Patient returns today to evaluate a focal asymmetry in the left breast. Comparison is made to exams dated: 10/18/2019 mammogram, 10/13/2019 mammogram, 10/08/2018 mammogram, 10/05/2017 mammogram, and 09/01/2016 mammogram - [facility]. Real-time ultrasound of the left breast was performed. [place] scale images of the real-time examination were reviewed. No significant abnormalities were seen sonographically in the left breast. IMPRESSION: PROBABLY BENIGN There is no abnormality seen in the left breast to correspond with the mammography finding seen on the lateral and mediolateral oblique view only. This asymmetry appeared to have waxed and waned over the years an may represent scar tissue as it can not be seen on the craniocaudal view. This is probably benign. A follow-up left mammogram and an ultrasound in 6 months is recommended to demonstrate stability. This exam was interpreted at Station ID: [id number]. Electronically Signed By: Josué stephen/:10/18/2019 15:52:30 letter sent: Followup Recommended Ultrasound BI-RADS: 3 Probably benign
--- NOTE | 2019-10-18 | DI.MG.S_ITS ---
UNILATERAL LEFT DIGITAL DIAGNOSTIC MAMMOGRAM 3D/2D WITH ADDITIONAL VIEWS: 10/18/2019 CLINICAL: Additional evaluation requested from prior study. Comparison is made to exams dated: 10/08/2018 mammogram, 10/05/2017 mammogram, and 09/01/2016 mammogram - [facility]. There are scattered fibroglandular elements in left breast. The previously described oval equal density asymmetry with an indistinct margin in the left breast anterior depth superior region seen on the mediolateral oblique view only is again noted but appears less prominent. Stable post surgical changes in the left breast. No other significant masses or calcifications are seen in the breast. IMPRESSION: INCOMPLETE: NEEDS ADDITIONAL IMAGING EVALUATION The oval equal density asymmetry in the left breast remains indeterminate. An ultrasound is recommended for further evaluation and is scheduled to immediately follow this study. This exam was interpreted at Station ID: [id number]. NOTE: For mammograms, a report in lay terms will be sent to the patient. Approximately 15% of breast malignancies will not be visualized mammographically. In the management of a palpable breast mass, a negative mammogram must not discourage biopsy of a clinically suspicious lesion. Electronically Signed By: Josué Miller M.D. aty/:10/18/2019 15:06:39 ACR BI-RADS Category 0: Incomplete 3340F
== END ==
PROVIDERS: PCP Student in an Organized Health Care Education/Training Program; Referring Provider Student in an Organized Health Care Education/Training Program; Visit Provider Student in an Organized Health Care Education/Training Program
DX: R92.8 Other abnormal and inconclusive findings on diagnostic imaging of breast (principal); N64.89 Other specified disorders of breast
CPT/HCPCS: 76642; 77065; G0279

== ENCOUNTER → 2019-12-19 07:01 | Outpatient (CLI) | payer MEDICARE, OTHER, SELFPAY ==
--- NOTE | 2019-12-19 | DI.US.S_ITS ---
PROCEDURE: US EXTREMITY NONVASC UPPER LT INDICATIONS: LEFT UPPER ARM LUMPS; HX BREAST CANCER TECHNIQUE: Real-time scanning was performed of the left upper extremity, with image documentation. COMPARISON: None. FINDINGS: Ultrasound was performed in the area of interest. No mass or enlarged lymph nodes. IMPRESSION: No mass or enlarged lymph nodes in the area of interest. Dictated by: Maurice Velasco M.D. on 12/20/2019 at 8:30 Approved by: Maurice Velasco M.D. on 12/20/2019 at 8:32
== END ==
PROVIDERS: PCP Student in an Organized Health Care Education/Training Program; Referring Provider Student in an Organized Health Care Education/Training Program; Visit Provider Student in an Organized Health Care Education/Training Program
DX: R22.32 Localized swelling, mass and lump, left upper limb (principal); Z85.3 Personal history of malignant neoplasm of breast
CPT/HCPCS: 76882

== ENCOUNTER → 2019-12-22 14:16 | Outpatient (CLI) | payer MEDICARE, OTHER, SELFPAY ==
--- NOTE | 2019-12-22 14:18 | DI.RAD.S_ITS ---
PROCEDURE: XR HIP W PEL IF DONE LT 2V INDICATIONS: rt hip and pelvis pain TECHNIQUE: AP pelvis with lateral view(s) of the left hip(s). COMPARISON: None. FINDINGS: Bones: No fractures or dislocations. Pelvic ring appears intact. No suspicious bony lesions. Lower lumbar spondylosis and facet arthropathy. Moderate bilateral hip joint degeneration with symmetric appearance Soft tissues: The visualized bowel gas pattern is normal. No suspicious soft tissue calcifications. Scattered vascular calcifications and presumed pelvic phleboliths IMPRESSION: Bilateral moderate hip joint degeneration Lower lumbar spondylosis Dictated by: Hamilton Patel M.D. on 12/22/2019 at 16:23 Approved by: Hamilton Patel M.D. on 12/22/2019 at 16:25
== END ==
PROVIDERS: PCP Student in an Organized Health Care Education/Training Program; Referring Provider Family Medicine; Visit Provider Family Medicine
DX: M25.551 Pain in right hip (principal); R10.2 Pelvic and perineal pain; M16.0 Bilateral primary osteoarthritis of hip; M47.816 Spondylosis without myelopathy or radiculopathy, lumbar region
CPT/HCPCS: 73502

== ENCOUNTER → 2020-01-17 09:15 | Outpatient (CLI) | payer MEDICARE, OTHER, SELFPAY ==
--- NOTE | 2020-01-17 09:17 | DI.CT.S_ITS ---
PROCEDURE: CT CHEST ABD PEL W CON INDICATIONS: Urticaria, unspecified TECHNIQUE: After the administration of oral and intravenous contrast, 5 mm thick sections acquired from the lung apices to the symphysis. 5 mm coronal and sagittal reformats were performed, with additional 7 mm coronal MIP reformats through the lungs. For radiation dose reduction, the following was used: automated exposure control, adjustment of mA and/or kV according to patient size. COMPARISON: None. FINDINGS: Image quality: Excellent. CHEST: Lungs and pleura: No acute airspace opacities. No pleural effusions or pneumothorax. Central and peripheral airways appear patent and normal in caliber. Mediastinum: Heart size is normal. No pericardial effusion. No mediastinal or hilar adenopathy by size criteria. Thoracic aorta and central pulmonary arteries are normal in size. Esophagus is normal in caliber. No hiatal hernia. Note is made of what appears to be an aortic valve expandable mesh annulus. Chest wall: No axillary or supraclavicular adenopathy by size criteria. Thyroid gland appears normal. ABDOMEN: Solid organs: Liver is normal in size and enhancement. Gallbladder appears normal. Biliary system is non dilated. Pancreas enhances normally. Spleen is normal in size and enhancement. No adrenal nodules. Kidneys demonstrate normal size and enhancement, without hydronephrosis. Peritoneum and bowel: Bowel loops demonstrate normal wall thickness and caliber. No free fluid or air. Nodes and vessels: No retroperitoneal or mesenteric adenopathy by size criteria. Aorta and inferior vena cava are normal in size. Miscellaneous: No ventral hernias. PELVIS: Genitourinary: Bladder wall thickness is normal. Miscellaneous: No inguinal hernias or adenopathy. Bones: No suspicious bony lesions. L1-L3 vertebroplasty bone cement incidentally noted. No vertebral body compression fractures. IMPRESSION: Source of urticaria is not identified. Patient reports history of left breast carcinoma. No metastatic disease is found. Prior treatment for vertebral compression fractures L1-L3 with vertebroplasty bone cement Dictated by: Osman Tong M.D. on 01/17/2020 at 11:10 Approved by: Osman Tong M.D. on 01/17/2020 at 11:15
== END ==
PROVIDERS: PCP Student in an Organized Health Care Education/Training Program; Referring Provider Student in an Organized Health Care Education/Training Program; Visit Provider Student in an Organized Health Care Education/Training Program
DX: L50.9 Urticaria, unspecified (principal); K43.2 Incisional hernia without obstruction or gangrene
CPT/HCPCS: 71260; 74177; Q9967

== ENCOUNTER → 2020-01-19 11:30 | Outpatient (CLI) | payer MEDICARE, OTHER, SELFPAY ==
[2020-01-19 12:51] LABS: Add Manual Diff / Slide Review NO; Basophils Absolute Auto 0 /uL (0-100); Basophils Percent Auto 0.4 % (0-2); Eosinophils Absolute Auto 300 /uL (0-450); Eosinophils Percent Auto 4.8 % (2-4); Hematocrit 38.9 % (36-46); Hemoglobin 13.6 g/dL (12.0-16.0); Lymphocytes Absolute Auto 1100 /uL (1100-4500); Lymphocytes Percent Auto 16.3 % (25-40); Mean Corpuscular HGB Conc 34.9 % (30-36); Mean Corpuscular Hemoglobin 33.2 PG (26-34); Monocytes Absolute Auto 600 /uL (0-900); Neutrophils Absolute Auto 4500 /uL (1500-7000); Neutrophils Percent Auto 69.5 % (50-75); Platelet Count 158 X10^3/uL (150-400); Red Blood Cell Count 4.09 X10^6/uL (4.0-5.2); Red Cell Distribution Width 13.4 % (11.6-14.8); White Blood Cell Count 6.5 X10^3/uL (4.5-11.0)
[2020-01-19 13:22] LABS: Erythrocyte Sedimentation Rate 8 MM/HR (0-20)
== END ==
PROVIDERS: PCP Student in an Organized Health Care Education/Training Program; Referring Provider Student in an Organized Health Care Education/Training Program; Visit Provider Student in an Organized Health Care Education/Training Program
DX: R21 Rash and other nonspecific skin eruption (principal)
CPT/HCPCS: 36415; 85025; 85651

== ENCOUNTER → 2020-03-14 14:49 | Outpatient (CLI) | payer MEDICARE, OTHER, SELFPAY ==
--- NOTE | 2020-03-14 | DI.MG.S_ITS ---
UNILATERAL LEFT DIGITAL DIAGNOSTIC MAMMOGRAM 3D/2D SHORT-TERM FOLLOW-UP POST LUMPECTOMY: 03/14/2020 CLINICAL: Patient returns for a 6 month follow up of the left breast. Comparison is made to exams dated: 10/18/2019 mammogram, 10/13/2019 mammogram, and 10/08/2018 mammogram - [facility]. There are scattered fibroglandular elements in left breast. There is a stable focal asymmetry in the left breast at 1 o'clock anterior depth. No other significant masses or calcifications are seen in the breast. IMPRESSION: INCOMPLETE: NEEDS ADDITIONAL IMAGING EVALUATION The stable focal asymmetry in the left breast is indeterminate. A targeted ultrasound of the left breast is recommended and will be performed immediately following this exam. This exam was interpreted at Station ID: [id number]. NOTE: For mammograms, a report in lay terms will be sent to the patient. Approximately 15% of breast malignancies will not be visualized mammographically. In the management of a palpable breast mass, a negative mammogram must not discourage biopsy of a clinically suspicious lesion. Electronically Signed By: Lucila Lopez M.D. lk/:03/14/2020 15:14:39 ACR BI-RADS Category 0: Incomplete 3340F
--- NOTE | 2020-03-14 | DI.US.S_ITS ---
ULTRASOUND OF LEFT BREAST: 03/14/2020 CLINICAL: 6 month follow-up LT breast. Comparison is made to exams dated: 03/14/2020 mammogram, 10/18/2019 ultrasound, 10/18/2019 mammogram, 10/13/2019 mammogram, 10/08/2018 mammogram, and 10/05/2017 mammogram - [facility]. Ultrasound of the left breast was performed on the area of interest. Linn scale images of the real-time examination were reviewed. IMPRESSION: NEGATIVE There is no sonographic evidence of malignancy. There is no sonographic abnormality seen in the left breast to correspond with the mammography finding. Of note, in retrospect, this finding is likely present on prior studies, most likely represents surgical scar and is benign. Return to annual mammogram screening schedule is recommended. This exam was interpreted at Station ID: [id number]. Electronically Signed By: Lucila Lopez M.D. lk/:03/14/2020 16:03:11 letter sent: Normal Exam Ultrasound BI-RADS: 1 Negative
== END ==
PROVIDERS: PCP Student in an Organized Health Care Education/Training Program; Referring Provider Student in an Organized Health Care Education/Training Program; Visit Provider Student in an Organized Health Care Education/Training Program
DX: R92.8 Other abnormal and inconclusive findings on diagnostic imaging of breast (principal); N64.89 Other specified disorders of breast
CPT/HCPCS: 76642; 77065; G0279

== ENCOUNTER → 2020-03-20 11:49 | Outpatient (CLI) | payer MEDICARE, OTHER, SELFPAY ==
[2020-03-20 13:15] LABS: Add Manual Diff / Slide Review NO; Basophils Absolute Auto 0 /uL (0-100); Basophils Percent Auto 0.4 % (0-2); Eosinophils Absolute Auto 500 /uL (0-450); Eosinophils Percent Auto 7.3 % (2-4); Hematocrit 37.6 % (36-46); Hemoglobin 12.9 g/dL (12.0-16.0); Lymphocytes Absolute Auto 1300 /uL (1100-4500); Lymphocytes Percent Auto 20.6 % (25-40); Mean Corpuscular HGB Conc 34.3 % (30-36); Mean Corpuscular Hemoglobin 32.6 PG (26-34); Mean Corpuscular Volume 95.2 fL (80-100); Monocytes Absolute Auto 500 /uL (0-900); Monocytes Percent Auto 8.7 % (3-14); Neutrophils Absolute Auto 4000 /uL (1500-7000); Platelet Count 170 X10^3/uL (150-400); Red Blood Cell Count 3.95 X10^6/uL (4.0-5.2); Red Cell Distribution Width 13.8 % (11.6-14.8); White Blood Cell Count 6.3 X10^3/uL (4.5-11.0)
[2020-03-20 13:37] LABS: Alanine Aminotransferase 31 IU/L (<35); Albumin Globulin Ratio 1.7 (1.0-2.8); Alkaline Phosphatase 87 U/L (38-126); Aspartate Aminotransferase 37 IU/L (14-36); BUN Creatinine Ratio 20.3 (6-22); Bilirubin Total 0.8 mg/dL (0.2-1.3); Blood Urea Nitrogen 12 mg/dL (7-17); Carbon Dioxide 27 mmol/L (22-32); Chloride 97 mmol/L (98-107); Estimated Glomerular Filt Rate > 60.0 mL/min (>60); Globulin 2.4 g/dL (1.7-4.1); Glucose 109 mg/dL (80-110); HEMOLYSIS < 15 (0-50); Potassium 4.5 mmol/L (3.4-5.1); Sodium 133 mmol/L (137-145); Total Protein 6.4 g/dL (6.3-8.2)
[2020-03-20 13:40] LABS: NT-proBNP (BNP-Adult 18+) 317 pg/mL (<450)
== END ==
PROVIDERS: PCP Student in an Organized Health Care Education/Training Program; Referring Provider Specialist; Visit Provider Specialist
DX: R06.00 Dyspnea, unspecified (principal); R06.89 Other abnormalities of breathing
CPT/HCPCS: 36415; 80053; 83880; 85025

== ENCOUNTER → 2020-04-06 15:55 | Outpatient (CLI) | payer MEDICARE, OTHER, SELFPAY ==
--- NOTE | 2020-04-06 15:57 | DI.ECHO.S_ITS ---
[place] +---------+ Hospital +---------+ : : [address] : : : : [id number] : : : : Phone: [phone] +---------+ Echocardiogram Report + + :Name: ADEEL LAGUNAS Study Date: 04/06/2020 Height: 67 in : :[facility] Exam Location: IS Weight: 189 lb : : Gender: Female BSA: 2.0 m2 : :: 1935 Age: 84 yrs BP: 138/80 mmHg: :Reason For Study: Dyspnea : :Ordering Physician: Dr. Kunz : :Jigar Performed By: Kizzy Page : :Referring: ALCON SON : + + Interpretation Summary The left ventricle is normal in size, wall thickness, and systolic function without any focal wall motion abnormalities with the ejection fraction visually estimated to be 65-70%. Diastolic parameters suggest a pseudonormalization pattern, consistent with probable elevated filling pressures. There has been no significant change since the previous study. The right ventricle is normal in size and function and appears slightly larger compared to the previous study. The right ventricular systolic pressure is estimated to be at least 28 mmHg based on an estimated right atrial pressure of 3 mm Hg, and is similar to the previous study. The left atrium is moderately dilated and the right atrium is mildly dilated. Both atria have mildly increased in size since the prior echo exam. There is trace mitral regurgitation and mild tricuspid regurgitation that are less prominent compared to the previous study. There is mild to moderate pulmonic regurgitation that is unchanged compared to the previous study. 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 No aortic regurgitation is present. The ascending aorta is mildly enlarged but is unchanged compared to the previous study. Procedure: A two-dimensional transthoracic echocardiogram with color flow and Doppler was performed. The study quality was technically adequate. Comparison is made with the echocardiogram of 09/07/2018. The patient was in normal sinus rhythm during the exam. Left Ventricle: The left ventricle is normal in size, wall thickness, and systolic function without any focal wall motion abnormalities. The ejection fraction is estimated to be 65-70%. Diastolic parameters suggest a pseudonormalization pattern, consistent with probable elevated filling pressures. There has been no significant change since the previous study. Right Ventricle: The right ventricle is normal in size and function. This is slightly larger compared to the previous study. Atria: The left atrium is moderately dilated. Both atria have mildly increased in size since the prior echo exam. The right atrium is mildly dilated. There is no Doppler evidence for an interatrial shunt. Mitral Valve: There is moderate mitral annular calcification. The mitral valve leaflets are mildly calcified. There is trace mitral regurgitation. This is less prominent compared to the previous study. Aortic Valve: There is a bioprosthetic aortic valve. The prosthetic aortic valve is well-seated. The gradients through the prosthetic aortic valve are within the normal range for this type of valve. This is new compared to the previous study. No aortic regurgitation is present. Tricuspid Valve: The tricuspid valve is normal in structure and function. There is mild tricuspid regurgitation. This is less prominent compared to the previous study. The right ventricular systolic pressure is estimated to be at least 28 mmHg based on an estimated right atrial pressure of 3 mm Hg. This is unchanged compared to the previous study. Pulmonic Valve: The pulmonic valve is not well seen, but is grossly normal. There is mild to moderate pulmonic regurgitation. This is unchanged compared to the previous study. Great Vessels: The aortic root is not well visualized but is probably normal size. The ascending aorta is mildly enlarged. This is unchanged compared to the previous study. The pulmonary artery is not well visualized, but is probably normal size. The IVC is of normal diameter and collapses greater than 50% with a sniff. This suggests a low right atrial pressure of 3 mm Hg. Pericardium/ Pleura There is no pericardial effusion. There is no pleural effusion. MMode/2D Measurements & Calculations LVIDd: 4.5 cm LVOT diam: 1.9 cm LVIDs: 2.9 cm Ao root diam: 3.3 cm FS: 34.6 % asc Aorta Diam: 3.5 cm EPSS: 0.24 cm IVSd: 0.83 cm LVPWd: 0.68 cm LV zurita. diameter/BSA (cm/m^2): 2.3 LV sys. diameter/BSA (cm/m^2): 1.5 LA A2 area: 25.7 cm2 RA long axis: 4.9 cm LA A4 area: 22.7 cm2 RA area: 18.5 cm2 LA length (vol): 6.0 cm RA vol: 59.8 ml LA vol: 82.9 ml RA : 30.3 ml/m2 LA vol index: 42.0 ml/m2 IVC diam: 2.2 cm RVD1 (basal): 4.0 cm Doppler Measurements & Calculations Ao V2 max: 280.1 cm/sec LVOT Max Dann: 112.1 cm/sec Ao V2 mean: 188.7 cm/sec LV V1 max P.0 mmHg Ao max P.4 mmHg LV V1 VTI: 24.1 cm Ao mean P.9 mmHg BRI(I,D): 1.2 cm2 Ao V2 VTI: 58.6 cm BRI(V,D): 1.1 cm2 sev ratio: 0.41 BRI indexed to BSA (cm^2/m^2): 0.59 MV E max dann: 103.3 cm/sec TR max dann: 251.7 cm/sec MV A max dann: 101.1 cm/sec TR max P.3 mmHg MV E/A: 1.0 PA V2 max: 78.2 cm/sec Med Peak E' Dann: 4.2 cm/sec PA V2 mean: 52.4 cm/sec E/E' med: 24.5 PA mean P.2 mmHg Lat Peak E' Dann: 4.6 cm/sec PA Accel Time: 0.08 sec E/E' lat: 22.3 E/e' average: 23.4 MV dec time: 0.26 sec SV(LVOT): 68.8 ml Reading Physician:07:39 AM
== END ==
PROVIDERS: PCP Student in an Organized Health Care Education/Training Program; Referring Provider Physician Assistant Medical; Visit Provider Specialist
DX: I07.1 Rheumatic tricuspid insufficiency (principal); R06.00 Dyspnea, unspecified; Z95.2 Presence of prosthetic heart valve
CPT/HCPCS: 93306

== ENCOUNTER → 2020-09-14 08:31 | Outpatient (CLI) | payer MEDICARE, OTHER, SELFPAY ==
[2020-09-14] MEDS: COVID-19 VACC #1, MRNA(MOD) 100 MCG/0.5 ML VIAL IM (08:34)
== END ==
PROVIDERS: PCP Student in an Organized Health Care Education/Training Program; Visit Provider Internal Medicine
DX: Z23 Encounter for immunization (principal)
CPT/HCPCS: 0011A; 91301

== ENCOUNTER → 2020-10-12 10:35 | Outpatient (CLI) | payer MEDICARE, OTHER, SELFPAY ==
[2020-10-12] MEDS: COVID-19 VACC #2, MRNA(MOD) 100 MCG/0.5 ML VIAL IM (10:39)
== END ==
PROVIDERS: PCP Student in an Organized Health Care Education/Training Program; Visit Provider Internal Medicine
DX: Z23 Encounter for immunization (principal)
CPT/HCPCS: 0012A; 91301

== ENCOUNTER → 2020-11-14 08:19 | Outpatient (CLI) | payer MEDICARE, OTHER, SELFPAY ==
[2020-11-14 09:44] LABS: Alanine Aminotransferase 25 IU/L (<35); Albumin 3.9 g/dL (3.5-5.0); Albumin Globulin Ratio 1.7 (1.0-2.8); Alkaline Phosphatase 98 U/L (38-126); Aspartate Aminotransferase 30 IU/L (14-36); BUN Creatinine Ratio 14.5 (6-22); Bilirubin Total 0.7 mg/dL (0.2-1.3); Blood Urea Nitrogen 10 mg/dL (7-17); Calcium 9.3 mg/dL (8.4-10.2); Carbon Dioxide 30 mmol/L (22-32); Chloride 98 mmol/L (98-107); Estimated Glomerular Filt Rate > 60.0 mL/min (>60); Globulin 2.3 g/dL (1.7-4.1); Glucose 105 mg/dL (80-110); HEMOLYSIS < 15 (0-50); Magnesium 1.9 mg/dL (1.6-2.3); Potassium 4.3 mmol/L (3.4-5.1); Sodium 134 mmol/L (137-145); Total Protein 6.2 g/dL (6.3-8.2)
[2020-11-16 12:14] LABS: Cholesterol, Total 142 mg/dL (100-199); HDL-Cholesterol 71 mg/dL (>39); LDL Particle 741 nmol/L (<1000); LDL Size 20.8 nm (>20.5); LDL-Cholsterol 55 mg/dL (0-99); LP-IR Score 46 (<=45); Small LDL- Particle 400 nmol/L (<=527); Triglycerides 84 mg/dL (0-149)
== END ==
PROVIDERS: PCP Student in an Organized Health Care Education/Training Program; Referring Provider Specialist; Visit Provider Specialist
DX: E78.2 Mixed hyperlipidemia (principal); I10 Essential (primary) hypertension
CPT/HCPCS: 36415; 80053; 80061; 83704; 83735

== ENCOUNTER → 2020-11-28 07:57 | Outpatient (CLI) | payer MEDICARE, OTHER, SELFPAY ==
--- NOTE | 2020-11-28 | DI.ECHO.S_ITS ---
[place] +---------+ Hospital +---------+ : : [address] : : : : [id number] : : : : Phone: [phone] +---------+ Echocardiogram Report + + :Name: ADEEL LAGUNAS Study Date: 11/28/2020 Height: 68 in : :[facility] ReadingLocation: Weight: 181 lb : : Gender: Female BSA: 2.0 m2 : :: 1935 Age: 85 yrs BP: 153/87 mmHg: :Reason For Study: NONRHEUMATIC AORTIC VALVE STENOSIS : :Ordering Physician: ADELAIDA, : :ALCON Performed By: Essence Singletary : :Referring: ACLON SON : + + Interpretation Summary The ejection fraction is estimated to be 60-65%. The mitral valve leaflets are mildly calcified. There is trace mitral regurgitation. 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 The peak aortic velocity is 2.3 m/sec. The gradients through the prosthetic aortic valve are within the normal range for this type of valve. There is mild tricuspid regurgitation. The right ventricular systolic pressure is estimated to be at least 23 mmHg based on an estimated right atrial pressure of 3 mm Hg. Procedure: A two-dimensional transthoracic echocardiogram with color flow and Doppler was performed. The study quality was technically adequate. Comparison is made with the echocardiogram of 04/06/2020. The patient was in sinus rhythm with heart rates between 65-74 bpm during the exam. Left Ventricle: The left ventricle is normal in size and wall thickness. The ejection fraction is estimated to be 60-65%. Left ventricular wall motion is normal. Diastolic parameters suggest a pseudonormalization pattern, consistent with probable elevated filling pressures. Right Ventricle: The right ventricle is normal in size and function. Atria: The left atrium is mildly dilated. Right atrial size is normal. There is no Doppler evidence for an interatrial shunt. Mitral Valve: There is moderate mitral annular calcification. The mitral valve leaflets are mildly calcified. There is trace mitral regurgitation. Aortic Valve: There is a bioprosthetic aortic valve. The gradients through the prosthetic aortic valve are within the normal range for this type of valve. The peak aortic velocity is 2.3 m/sec. This is unchanged compared to the previous study. No aortic regurgitation is present. Tricuspid Valve: The tricuspid valve is normal in structure and function. There is mild tricuspid regurgitation. The right ventricular systolic pressure is estimated to be at least 23 mmHg based on an estimated right atrial pressure of 3 mm Hg. Pulmonic Valve: The pulmonic valve leaflets are thin and pliable; valve motion is normal. There is mild to moderate pulmonic regurgitation. Great Vessels: The aortic root is not well visualized but is probably normal size. The ascending aorta is mildly enlarged. The IVC is of normal diameter and collapses greater than 50% with a sniff. This suggests a low right atrial pressure of 3 mm Hg. Pericardium/ Pleura There is no pericardial effusion. There is no pleural effusion. MMode/2D Measurements & Calculations LVIDd: 4.4 cm LVOT diam: 2.0 cm LVIDs: 2.7 cm asc Aorta Diam: 3.5 cm FS: 37.7 % Ao Arch Diam (Prox Trans): 2.6 cm EPSS: 0.48 cm IVSd: 1.1 cm LVPWd: 0.89 cm LV zurita. diameter/BSA (cm/m^2): 2.2 LV sys. diameter/BSA (cm/m^2): 1.4 LA A2 area: 22.0 cm2 RA long axis: 5.4 cm LA A4 area: 27.7 cm2 RA area: 18.4 cm2 LA length (vol): 6.4 cm RA vol: 53.9 ml LA vol: 81.0 ml RA : 27.5 ml/m2 LA vol index: 41.4 ml/m2 IVC diam: 1.8 cm RVD1 (basal): 2.6 cm TAPSE: 2.0 cm Doppler Measurements & Calculations Ao V2 max: 229.4 cm/sec LVOT Max Dann: 114.4 cm/sec Ao V2 mean: 153.3 cm/sec LV V1 max P.2 mmHg Ao max P.0 mmHg LV V1 VTI: 25.5 cm Ao mean P.9 mmHg BRI(I,D): 1.7 cm2 Ao V2 VTI: 46.8 cm BRI(V,D): 1.6 cm2 sev ratio: 0.55 BRI indexed to BSA (cm^2/m^2): 0.89 MV E max dann: 111.2 cm/sec TR max dann: 223.8 cm/sec MV A max dann: 118.3 cm/sec TR max P.0 mmHg MV E/A: 0.94 PA V2 max: 126.6 cm/sec Med Peak E' Dann: 6.2 cm/sec PA V2 mean: 86.8 cm/sec E/E' med: 18.0 PA mean P.3 mmHg Lat Peak E' Dann: 4.7 cm/sec PA pr(Accel): 29.3 mmHg E/E' lat: 23.9 E/e' average: 20.9 MV dec time: 0.28 sec SV(LVOT): 81.2 ml Reading Physician:12:59 PM
--- NOTE | 2020-11-28 | DI.MG.S_ITS ---
BILATERAL DIGITAL SCREENING MAMMOGRAM 3D/2D WITH CAD POST LUMPECTOMY: 11/28/2020 CLINICAL: Routine screening. Personal history of left breast cancer. Family history of breast cancer. Comparison is made to exams dated: 03/14/2020 ultrasound, 03/14/2020 mammogram, 10/18/2019 mammogram, 10/13/2019 mammogram, and 10/08/2018 mammogram - [facility]. There are scattered fibroglandular elements in both breasts. Current study was also evaluated with a Computer Aided Detection (CAD) system. There are benign post operative findings in the left breast. No significant masses, calcifications, or other findings are seen in either breast. There has been no significant interval change. IMPRESSION: BENIGN There is no mammographic evidence of malignancy. A 1 year screening mammogram is recommended. This exam was interpreted at Station ID: [id number]. NOTE: For mammograms, a report in lay terms will be sent to the patient. Approximately 15% of breast malignancies will not be visualized mammographically. In the management of a palpable breast mass, a negative mammogram must not discourage biopsy of a clinically suspicious lesion. Electronically Signed By: Leon chan/ethel:11/28/2020 10:52:09 letter sent: Normal Exam ACR BI-RADS Category 2: Benign Finding(s) 3342F
== END ==
PROVIDERS: PCP Student in an Organized Health Care Education/Training Program; Referring Provider Specialist; Visit Provider Specialist
DX: I07.1 Rheumatic tricuspid insufficiency (principal); I37.1 Nonrheumatic pulmonary valve insufficiency; I77.89 Other specified disorders of arteries and arterioles; Z12.31 Encounter for screening mammogram for malignant neoplasm of breast; Z85.3 Personal history of malignant neoplasm of breast; Z80.3 Family history of malignant neoplasm of breast; Z95.2 Presence of prosthetic heart valve
CPT/HCPCS: 77063; 77067; 93306

== ENCOUNTER → 2020-12-11 14:54 | Outpatient (CLI) | payer MEDICARE, OTHER, SELFPAY ==
--- NOTE | 2020-12-11 14:57 | DI.RAD.S_ITS ---
PROCEDURE: XR CHEST 2V INDICATIONS: Pleurodynia TECHNIQUE: 2 views of the chest were acquired. COMPARISON: [facility], , XR CHEST 1V, 09/27/2019, 19:18. [facility], , CHEST 2 VIEW, 11/27/2017, 13:45. FINDINGS: Surgical changes and devices: None. Lungs and pleura: Lungs are clear. No pleural effusions or pneumothorax. Mediastinum: Mediastinal contours are normal. Heart size is normal. Bones and chest wall: No suspicious bony abnormalities. Soft tissues appear unremarkable. IMPRESSION: Normal for age, source of current chest pain, pleurodynia symptoms is not seen. Dictated by: Osman Tong M.D. on 12/11/2020 at 15:47 Approved by: Osman Tong M.D. on 12/11/2020 at 15:48
== END ==
PROVIDERS: PCP Student in an Organized Health Care Education/Training Program; Referring Provider Student in an Organized Health Care Education/Training Program; Visit Provider Student in an Organized Health Care Education/Training Program
DX: R07.81 Pleurodynia (principal)
CPT/HCPCS: 71046

== ENCOUNTER → 2020-12-14 10:55 | Outpatient (CLI) | payer MEDICARE, OTHER, SELFPAY ==
--- NOTE | 2020-12-14 | DI.US.S_ITS ---
PROCEDURE: US BREAST LT LIMITED COMPARISON: None. INDICATIONS: NEW LEFT BREAST MASS FINDINGS: IMPRESSION: Dictated by: Fortino Bear M.D. on 12/14/2020 at 15:34 Approved by: Fortino Bear M.D. on 12/14/2020 at 15:35
--- NOTE | 2020-12-14 10:32 | DI.US.S_ITS ---
At the request of: ISAIAS CHANTAL Procedure: US breast LT limited LIMITED ULTRASOUND OF LEFT BREAST AND AXILLA: 12/14/2020 CLINICAL: Palpable left axilla lump/s. Comparison is made to exams dated: 11/28/2020 mammogram, 03/14/2020 ultrasound, 03/14/2020 mammogram, 10/18/2019 ultrasound, 10/18/2019 mammogram, and 10/13/2019 mammogram - [facility]. Color flow and real-time ultrasound of the left breast axilla were performed. Linn scale images of the real-time examination were reviewed. No significant abnormalities were seen sonographically in the left breast or the left axilla. IMPRESSION: NEGATIVE There is no sonographic evidence of malignancy. Return to annual screening schedule is recommended. This exam was interpreted at Station ID: [id number]. Electronically Signed By: Fortino Bear M.D. jr/:12/14/2020 13:04:43 letter sent: Normal Exam Ultrasound BI-RADS: 1 Negative
== END ==
PROVIDERS: PCP Student in an Organized Health Care Education/Training Program; Referring Provider Student in an Organized Health Care Education/Training Program; Visit Provider Student in an Organized Health Care Education/Training Program
DX: N63.32 Unspecified lump in axillary tail of the left breast (principal)
CPT/HCPCS: 76642

== ENCOUNTER 2020-12-15 07:59 | Emergency (ER) | payer MEDICARE, OTHER, SELFPAY ==
[2020-12-15] VITALS (9 sets, daily range): BP systolic 163–188; BP diastolic 78–83; PULSE 64–73; RESP 14–16; TEMP 36.3; O2SAT 94–97; BMI 27.6
--- NOTE | 2020-12-15 08:40 | ED.ALLEREA ---
HPI - Allergic Reaction General Chief complaint: Allergic Reaction Stated complaint: swollen in face Time Seen by Provider: 12/15/20 08:25 Source: patient Mode of arrival: Ambulatory Limitations: no limitations History of Present Illness HPI narrative: This is an 85-year-old female comes emergency department with complaint of swelling of her lips and now tongue and face. Patient was started on lisinopril last Thursday almost a week ago. She noticed swelling 2 days ago of her upper lip which has now extended to both lips and she notes her tongue feels swollen. She also states that her voice is a little hoarse. Patient does not feel like she is having any difficulty with breathing in her airway but does note that she had a fall which she has been worked up for and has left-sided rib pain and bruising so she has pain with deep inspiration. Patient denies any fevers or chills. She denies any new chest pain or pressure. She does have a little bit of bruising. She states she had an x-ray of her chest which was negative but was not a rib series. Patient states she had a syncopal episode which has been worked up by her physician and they believe it was secondary to hypotension when ambulating. Patient denies any other GI or urinary symptoms. Patient does not have any new swelling of her extremities in the last few days but notes that she has had some in her hands and legs. 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 She states her blood pressure is in the 2nd half of the day are usually normal. She is not sure what her normal blood pressure medication is but she does take 1 daily. She does states she is allergic to metoprolol and that it caused renal failure. Patient is concerned about possible recurrence of renal failure with lisinopril and is scheduled to have her creatinine rechecked in a week or 2. Patient is on aspirin 81 mg daily. She also states she does have an incentive spirometer at home and she knows how to use it although she has not been using it because it is too painful. She has been taking Tylenol daily for pain. Related Data Home Medications Medication Instructions Recorded Confirmed fluoxetine [Prozac] 20 mg PO QDAY #0 07/21/12 03/06/20 levothyroxine [Tirosint] 75 mcg PO Q DAY #0 07/21/12 03/06/20 amitriptyline 25 mg tablet 25 mg PO DAILY 07/07/18 03/06/20 aspirin 81 mg tablet,delayed 81 mg PO DAILY 07/07/18 03/06/20 release atorvastatin 80 mg tablet 80 mg PO DAILY 07/07/18 03/06/20 carvedilol 12.5 mg tablet 12.5 mg PO BID 07/07/18 03/06/20 magnesium oxide 500 mg capsule 500 mg PO DAILY cap 07/07/18 03/06/20 Previous Rx's Medication Instructions Recorded mupirocin 2 % topical ointment 1 applic TOP TID #30 gram 03/06/20 oxycodone 5 mg PO Q6H PRN #14 tab 12/15/20 prednisone 40 mg PO DAILY #6 tab 12/15/20 Allergies Allergy/AdvReac Type Severity Reaction Status Date / Time morphine Allergy Intermediate VOMITING, Verified 03/06/20 13:22 HIVES metoprolol Allergy Unknown KIDNEY Verified 03/06/20 13:22 FAILURE meperidine AdvReac Mild NAUSEA Verified 03/06/20 13:22 Review of Systems Review of Systems ROS Unobtainable: All systems reviewed & are unremarkable except as noted in HPI and below Patient History Medical History Breast cancer Cellulitis Heart valve stenosis History of CA (myocardial infarction) Hypertension Skin abrasion Surgical History S/P lumpectomy, left breast Status post left breast lumpectomy Family History Mother Heart disease Diabetes mellitus Sister Cancer Hyperlipidemia Stroke Social History household members: none occupational status: previously employed Smoking Status: Never smoker alcohol intake: current substance use type: does not use Smoking Status: Never smoker alcohol intake frequency: holidays/special occasions only Substance Use Type: does not use Exam Narrative Exam Narrative: GEN: well nourished, well appearing elderly female, alert and oriented x 3, patient appears to be in mild distress. HEENT: Atraumatic, pupils are equal round reactive to light, extraocular movements are intact, nares are clear, TMs are clear with no fluid, there is no conjunctival pallor. Throat is clear without any exudates, erythema, tonsillar enlargement or uvular deviation, patient has some mild swelling of her upper lip as well as tongue. Difficult to appreciate if patient has any additional swelling on exam. HEART: Regular rate and rhythm without murmur, clicks, rubs. LUNGS:Lungs clear to auscultation, no wheezes, rales, crackles, chest moves symmetrically. Patient has point tenderness the left lateral ribs at the rib 7 position as well as a small amount of ecchymosis that is very localized and greenish discoloration. No subcutaneous emphysema. ABD:bowel sounds normal, soft, non-tender, no guarding, rebound, rigidity, no masses noted, no hepatosplenomegaly :No CVA tenderness MSCL: Non-tender, no muscle atrophy, muscles strength 5/5 upper and lower extremities, full range of motion, normal gait NEURO:CN 2-12 intact, sensation normal, reflexes 2/4 upper and lower extremities. finger nose finger test normal, heel salguero test normal, romberg normal Initial Vital Signs Initial Vital Signs: Vital Signs Pulse Rate 72 12/15/20 08:05 Blood Pressure 188/81 H 12/15/20 08:05 Pulse Oximetry 97 12/15/20 08:05 Course Orders Ordered: Discontinued Medications Acetaminophen (Acetaminophen 325 Mg Tablet) 975 mg PO NOW ONE Stop: 12/15/20 09:14 Last Admin: 12/15/20 09:50 Dose: 975 mg Documented by: [email or web address] Diphenhydramine HCl (Diphenhydramine 25 Mg Tablet) 50 mg PO NOW ONE Stop: 12/15/20 09:14 Last Admin: 12/15/20 09:50 Dose: 50 mg Documented by: [email or web address] Methylprednisolone (Methylprednisolone 125 Mg/2 Ml Vial) 125 mg IV NOW ONE Stop: 12/15/20 09:14 Last Admin: 12/15/20 09:51 Dose: 125 mg Documented by: [email or web address] Reevaluation(s) Reevaluation #1: Patient is feeling better and states there is still some swelling present but has been improving. She feel comfortable returning home. She was given an incentive spirometer as she is unsure where hers at home after further discussion as well as plan for some oral narcotics to help improve her respirations she states she is not taking good breaths because painful. Suspect she has a rib fracture although not noted on her chest x-ray (12/11) which was reviewed at that location and point tenderness. Time: 10:44 Vital Signs Vital signs: Vital Signs - 8 hr 12/15/20 08:05 12/15/20 08:09 12/15/20 08:30 Temperature 97.4 F L Pulse Rate 72 68 68 Respiratory Rate 16 Blood Pressure 188/81 H 188/81 H Pulse Oximetry 97 97 94 12/15/20 09:00 12/15/20 09:30 12/15/20 09:51 Temperature Pulse Rate 73 65 66 Respiratory Rate Blood Pressure 172/79 H Pulse Oximetry 94 95 96 MDM - Allergic Reaction Lab Data Attestation: I reviewed the patient's lab results. Result diagrams: 12/15/20 10:00 12/15/20 10:00 Labs: Lab Results 12/15/20 12/15/20 Range/Units 10:00 10:00 WBC 5.3 (4.5-11.0) X10^3/uL RBC 4.01 (4.0-5.2) X10^6/uL Hgb 13.1 (12.0-16.0) g/dL Hct 37.9 (36-46) % MCV 94.5 (80-100) fL MCH 32.7 (26-34) PG MCHC 34.6 (30-36) % RDW 13.3 (11.6-14.8) % Plt Count 174 (150-400) X10^3/uL Neut % (Auto) 67.7 (50-75) % Lymph % (Auto) 17.9 L (25-40) % [place] % (Auto) 9.7 (3-14) % Eos % (Auto) 4.1 H (2-4) % Baso % (Auto) 0.6 (0-2) % Neut # (Auto) 3600 (7531-1112) /uL Lymph # (Auto) 1000 L (3266-3853) /uL [place] # (Auto) 500 (0-900) /uL Eos # (Auto) 200 (0-450) /uL Baso # (Auto) 0 (0-100) /uL Sodium 133 L (137-145) mmol/L Potassium 4.2 (3.4-5.1) mmol/L Chloride 98 (98-107) mmol/L Carbon Dioxide 29 (22-32) mmol/L BUN 9 (7-17) mg/dL Creatinine 0.58 (0.52-1.04) mg/dL Estimated GFR > 60.0 (>60) mL/min BUN/Creatinine Ratio 15.5 (6-22) Glucose 102 (80-110) mg/dL Calcium 9.2 (8.4-10.2) mg/dL MDM Narrative Medical decision making narrative: 85-year-old female with angioedema likely secondary to her new prescription for lisinopril. Patient was told to stop the medication she did seem to have some improvement with steroids and Benadryl although we discussed this is more of an adverse reaction and she needs to avoid these types of medications in the future. She has only been having elevated blood pressures in the morning so asked to wait until it is out of her system contact her physician on Thursday and they can readjust her medications. Patient has been having significant chest pain and had a negative chest x-ray after a syncopal episode and fall in November. Patient has had a negative workup and they believe it was hypotension likely orthostatic. Clinic if patient short course of pain medication as well as incentive spirometer to help prevent any development of pneumonia. Discharge Plan Departure Patient Disposition: Home Clinical Impression: Adverse reaction to lisinopril Qualifiers: Encounter type: initial encounter Qualified Code(s): T46.4X5A - Adverse effect of fpxhyehuwro-hqqjegnczl-dwpwmh inhibitors, initial encounter Angioedema Qualifiers: Encounter type: initial encounter Qualified Code(s): T78.3XXA - Angioneurotic edema, initial encounter Activity Restrictions/Additional Instructions: Stop your lisinopril, this is a common adverse reaction to this medication so please include it in your future allergy list. Take steroids once daily until gone. You may take Benadryl 1-2 tablets every 6 hours as needed for any symptoms. Follow-up with your physician regarding your blood pressure they may wish to alter your medications in a new way. You do not want to take any Efren inhibitors or similar type medications in the future. Take pain medication as prescribed. You may take Tylenol up to a 1000 mg every 8 hours as needed. If this is inadequate you may add 1 tablet of oxycodone every 6 hours in addition this medication can make you sleepy do not drive, perform hazardous activities or make any major decisions while taking it. This medication will make you constipated so take a stool softener once to twice daily until stools are soft and regular while taking it. Prescription to [facility] in [place]. Please return for new or worsening swelling of your lips, tongue or mouth, if you are having worsening hoarseness, difficulty breathing, swallowing your saliva or spit, worsening swelling of your tongue, lightheadedness or passing out, persistent vomiting, wheezing, diarrhea or other new or concerning symptoms. Prescriptions: New prednisone 20 mg tablet 40 mg PO DAILY Qty: 6 RF: 0 oxycodone 5 mg tablet 5 mg PO Q6H PRN (Reason: pain) Qty: 14 RF: 0 No Action mupirocin 2 % ointment 1 applic TOP TID Qty: 30 RF: 0 fluoxetine [Prozac] 10 MG capsule 20 mg PO QDAY Qty: 0 RF: 0 levothyroxine [Tirosint] 75 MCG capsule 75 mcg PO Q DAY Qty: 0 RF: 0 amitriptyline 25 mg tablet 25 mg PO DAILY RF: 0 aspirin 81 mg tablet,delayed release (DR/EC) 81 mg PO DAILY RF: 0 atorvastatin 80 mg tablet 80 mg PO DAILY RF: 0 carvedilol 12.5 mg tablet 12.5 mg PO BID RF: 0 magnesium oxide 500 mg capsule 500 mg PO DAILY RF: 0 Referrals: Donna Bran MD [Primary Care Provider] -
[2020-12-15] MEDS: diphenhydrAMINE 25 MG TABLET 50 MG PO (09:50)
[2020-12-15] MEDS: ACETAMINOPHEN 325 MG TABLET 975 MG PO (09:50)
[2020-12-15] MEDS: methylPREDNISolone 125 MG/2 ML VIAL IV (09:51)
[2020-12-15 10:21] LABS: Add Manual Diff / Slide Review NO; Basophils Absolute Auto 0 /uL (0-100); Basophils Percent Auto 0.6 % (0-2); Eosinophils Absolute Auto 200 /uL (0-450); Eosinophils Percent Auto 4.1 % (2-4); Hematocrit 37.9 % (36-46); Hemoglobin 13.1 g/dL (12.0-16.0); Lymphocytes Absolute Auto 1000 /uL (1100-4500); Lymphocytes Percent Auto 17.9 % (25-40); Mean Corpuscular HGB Conc 34.6 % (30-36); Mean Corpuscular Hemoglobin 32.7 PG (26-34); Mean Corpuscular Volume 94.5 fL (80-100); Monocytes Absolute Auto 500 /uL (0-900); Monocytes Percent Auto 9.7 % (3-14); Neutrophils Absolute Auto 3600 /uL (1500-7000); Neutrophils Percent Auto 67.7 % (50-75); Platelet Count 174 X10^3/uL (150-400); Red Blood Cell Count 4.01 X10^6/uL (4.0-5.2); Red Cell Distribution Width 13.3 % (11.6-14.8); White Blood Cell Count 5.3 X10^3/uL (4.5-11.0)
[2020-12-15 10:27] LABS: BUN Creatinine Ratio 15.5 (6-22); Blood Urea Nitrogen 9 mg/dL (7-17); Calcium 9.2 mg/dL (8.4-10.2); Carbon Dioxide 29 mmol/L (22-32); Chloride 98 mmol/L (98-107); Estimated Glomerular Filt Rate > 60.0 mL/min (>60); Glucose 102 mg/dL (80-110); HEMOLYSIS < 15 (0-50); Potassium 4.2 mmol/L (3.4-5.1); Sodium 133 mmol/L (137-145)
== END 2020-12-15 11:00 | disposition home or self-care (01) ==
PROVIDERS: Emergency Provider Emergency Medicine; PCP Student in an Organized Health Care Education/Training Program
DX: T78.3XXA Angioneurotic edema, initial encounter (principal); T46.4X5A Adverse effect of angiotensin-converting-enzyme inhibitors, initial encounter
CPT/HCPCS: 80048; 85025; 96374; 99284; J2930

== ENCOUNTER 2020-12-16 06:42 | Emergency (ER) | payer MEDICARE, OTHER, SELFPAY ==
[2020-12-16 06:55] VITALS: BP 137/75; PULSE 73; RESP 15; TEMP 36.3; O2SAT 96; BMI 27.6
--- NOTE | 2020-12-16 07:38 | ED_ITS ---
HPI - Allergic Reaction General Chief complaint: Allergic Reaction Stated complaint: swollen face Time Seen by Provider: 12/16/20 07:12 Source: patient Mode of arrival: Ambulatory Limitations: no limitations History of Present Illness HPI narrative: This is an 85 year old female with presents for a second time in 24 hours for swelling of her face. Patient was seen yesterday by myself. She started lisinopril approximately a week ago and developed swelling overnight and presented yesterday morning. Patient states that she had some improvement in the department yesterday but feels like it has returned to about the same level. She denies any tightness in her airway or difficulty with breathing. She has not any fevers. She her face is slightly more red but she states that this is a chronic issue and not atypical for her. Patient also states she has very dry skin on her face. She has not had any nausea or vomiting she has not any diarrhea. She denies any wheezing or shortness of breath. She was also noted to have chest pain with likely rib fracture and a negative chest x-ray as outpatient and feels much better after dose of oxycodone overnight. Patient was given a prescription for prednisone which she has not had today and she did not take any Benadryl at home overnight. She does not have any other new medications. Patient has not had her morning medications including her carvedilol, Prozac or amitriptyline. She does take an aspirin 81 mg daily. She also has been using the incentive spirometer she was given for possible rib fracture. Related Data Home Medications Medication Instructions Recorded Confirmed fluoxetine [Prozac] 20 mg PO QDAY #0 07/21/12 03/06/20 levothyroxine [Tirosint] 75 mcg PO Q DAY #0 07/21/12 03/06/20 amitriptyline 25 mg tablet 25 mg PO DAILY 07/07/18 03/06/20 aspirin 81 mg tablet,delayed 81 mg PO DAILY 07/07/18 03/06/20 release atorvastatin 80 mg tablet 80 mg PO DAILY 07/07/18 03/06/20 carvedilol 12.5 mg tablet 12.5 mg PO BID 07/07/18 03/06/20 magnesium oxide 500 mg capsule 500 mg PO DAILY cap 07/07/18 03/06/20 Previous Rx's Medication Instructions Recorded mupirocin 2 % topical ointment 1 applic TOP TID #30 gram 03/06/20 oxycodone 5 mg PO Q6H PRN #14 tab 12/15/20 prednisone 40 mg PO DAILY #6 tab 12/15/20 Allergies Allergy/AdvReac Type Severity Reaction Status Date / Time morphine Allergy Intermediate VOMITING, Verified 03/06/20 13:22 HIVES metoprolol Allergy Unknown KIDNEY Verified 03/06/20 13:22 FAILURE meperidine AdvReac Mild NAUSEA Verified 03/06/20 13:22 Review of Systems Review of Systems ROS Unobtainable: All systems reviewed & are unremarkable except as noted in HPI and below Patient History Medical History Breast cancer Cellulitis Heart valve stenosis History of CA (myocardial infarction) Hypertension Skin abrasion Surgical History S/P lumpectomy, left breast Status post left breast lumpectomy Family History Mother Heart disease Diabetes mellitus Sister Cancer Hyperlipidemia Stroke Social History household members: none occupational status: previously employed Smoking Status: Never smoker alcohol intake: current substance use type: does not use Smoking Status: Never smoker alcohol intake frequency: holidays/special occasions only Substance Use Type: does not use Exam Narrative Exam Narrative: GEN: well nourished, well appearing elderly female, alert and oriented x 3, patient appears to be in mild distress. HEENT: Atraumatic, pupils are equal round reactive to light, extraocular movements are intact, nares are clear, TMs are clear with no fluid, there is no conjunctival pallor. Throat is clear without any exudates, erythema, tonsillar enlargement or uvular deviation, patient has swelling of the upper lip. Somewhat difficult to appreciate swelling of her tongue although patient appre ciates some mild swelling. She has some mild erythema as well as dry skin appreciated. On initial evaluation patient is presentation appears slightly improved from yesterday to myself. HEART: Regular rate and rhythm without murmur, clicks, rubs. Pulses are equal in upper and lower extremities LUNGS:Lungs clear to auscultation, no wheezes, rales, crackles, chest moves symmetrically ABD:bowel sounds normal, soft, non-tender, no guarding, rebound, rigidity, no masses noted, no hepatosplenomegaly MSCL: Non-tender, full range of motion, normal gait NEURO:CN 2-12 intact, sensation normal SKIN: No rash, blistering or other skin changes appreciated other than noted above. Initial Vital Signs Initial Vital Signs: Vital Signs Temperature 97.4 F L 12/16/20 06:55 Pulse Rate 73 12/16/20 06:55 Respiratory Rate 15 12/16/20 06:55 Blood Pressure 137/75 12/16/20 06:55 Pulse Oximetry 96 12/16/20 06:55 Course Orders Ordered: Discontinued Medications Acetaminophen (Acetaminophen 325 Mg Tablet) 975 mg PO NOW ONE Stop: 12/16/20 08:12 Last Admin: 12/16/20 08:17 Dose: 975 mg Documented by: YESSICA Diphenhydramine HCl (Diphenhydramine 25 Mg Tablet) 50 mg PO NOW ONE Stop: 12/16/20 07:32 Last Admin: 12/16/20 08:07 Dose: 50 mg Documented by: YESSICA Famotidine (Pepcid) 20 mg in 50 mls @ 200 mls/hr IV NOW ONE Stop: 12/16/20 07:46 Last Infusion: 12/16/20 08:27 Dose: 0 mls/hr Documented by: Admin: 12/16/20 08:06 Dose: 200 mls/hr Documented by: YESSICA Methylprednisolone (Methylprednisolone 125 Mg/2 Ml Vial) 125 mg IV NOW ONE Stop: 12/16/20 07:32 Last Admin: 12/16/20 08:06 Dose: 125 mg Documented by: YESSICA Reevaluation(s) Reevaluation #1: Recheck, patient is feeling better at this time. She thinks she may take Benadryl as needed but is unsure so we discussed taking regularly and gave her the generic name as well as tried to check the bottle at home. Patient feels comfortable returning at this home. She lives very closely and can easily return as needed. Time: 09:15 Vital Signs Vital signs: Vital Signs - 8 hr 12/16/20 06:55 Temperature 97.4 F L Pulse Rate 73 Respiratory Rate 15 Blood Pressure 137/75 Pulse Oximetry 96 MDM - Allergic Reaction MDM Narrative Medical decision making narrative: 85-year-old female with likely lisinopril induced angioedema. Patient had some improvement yesterday with Solu-Medrol and Benadryl although this is not always helpful in treating. Patient has not had any additional Benadryl overnight for taking her next dose of prednisone which was prescribed. Patient and I did review her medication list and that she does not seem to have any other new exacerbating factors. Still suspect this is secondary to lisinopril. Discussed with patient that sometimes will give TXA off-label but with her history and fairly mild symptoms I would defer at this time. Patient does state she has not taken any additional lisinopril. On re- evaluation patient does feel she has had some improvement. We discussed taking her oral steroid this evening as well as taking Benadryl every 6-8 hours which she did not try and see if this helps with her symptoms as sometimes the angioedema can last for several days. Return precautions were once again discussed and patient feels comfortable with this plan and feels that she can return easily as needed. Discharge Plan Departure Patient Disposition: Home Clinical Impression: Adverse reaction to lisinopril Activity Restrictions/Additional Instructions: Activity Restrictions/Additional Instructions: Stop your lisinopril, this is a common adverse reaction to this medication so please include it in your future allergy list. Take steroids once daily until gone. You may take Benadryl (diphenhydramine is the generic name) 1-2 tablets every 6 hours as needed for any symptoms. Follow-up with your physician regarding your blood pressure they may wish to alter your medications in a new way. You do not want to take any Efren inhibitors or similar type medications in the future. Please return for new or worsening swelling of your lips, tongue or mouth, if you are having worsening hoarseness, difficulty breathing, swallowing your saliva or spit, worsening swelling of your tongue, lightheadedness or passing out, persistent vomiting, wheezing, diarrhea or other new or concerning symptoms. Prescriptions: No Action mupirocin 2 % ointment 1 applic TOP TID Qty: 30 RF: 0 fluoxetine [Prozac] 10 MG capsule 20 mg PO QDAY Qty: 0 RF: 0 levothyroxine [Tirosint] 75 MCG capsule 75 mcg PO Q DAY Qty: 0 RF: 0 amitriptyline 25 mg tablet 25 mg PO DAILY RF: 0 aspirin 81 mg tablet,delayed release (DR/EC) 81 mg PO DAILY RF: 0 atorvastatin 80 mg tablet 80 mg PO DAILY RF: 0 carvedilol 12.5 mg tablet 12.5 mg PO BID RF: 0 magnesium oxide 500 mg capsule 500 mg PO DAILY RF: 0 prednisone 20 mg tablet 40 mg PO DAILY Qty: 6 RF: 0 oxycodone 5 mg tablet 5 mg PO Q6H PRN (Reason: pain) Qty: 14 RF: 0 Referrals: Donna Bran MD [Primary Care Provider] -
[2020-12-16] MEDS: FAMOTIDINE 20 MG/50 ML PIGGYBACK 200 MG IV (08:06)
[2020-12-16] MEDS: methylPREDNISolone 125 MG/2 ML VIAL IV (08:06)
[2020-12-16] MEDS: diphenhydrAMINE 25 MG TABLET 50 MG PO (08:07)
[2020-12-16] MEDS: ACETAMINOPHEN 325 MG TABLET 975 MG PO (08:17)
[2020-12-16 09:21] VITALS: PULSE 68; O2SAT 98
[2020-12-16 09:22] VITALS: BP 194/86; PULSE 68; O2SAT 98
== END 2020-12-16 09:32 | disposition home or self-care (01) ==
PROVIDERS: Emergency Provider Emergency Medicine; PCP Student in an Organized Health Care Education/Training Program
DX: R22.0 Localized swelling, mass and lump, head (principal); T46.4X5A Adverse effect of angiotensin-converting-enzyme inhibitors, initial encounter
CPT/HCPCS: 36415; 96365; 96375; 99284; J2930

== ENCOUNTER 2020-12-17 12:28 | Emergency (ER) | payer MEDICARE, OTHER, SELFPAY ==
[2020-12-17 12:51] VITALS: BP 194/86; PULSE 70; RESP 14; TEMP 36.4; O2SAT 98
[2020-12-17 16:01] VITALS: BP 130/62; PULSE 69; O2SAT 97
--- NOTE | 2020-12-17 16:05 | ED.SKABFB ---
HPI - Skin/Abscess/Foreign Bdy General Chief complaint: Skin/Abscess/Foreign Body Stated complaint: reaction to medication, swollen face Time Seen by Provider: 12/17/20 16:04 Source: patient Mode of arrival: Ambulatory Limitations: no limitations History of Present Illness HPI narrative: This is an 85-year-old female comes emergency department with complaint for reaction to medication and swelling of her face. Patient was seen by myself yesterday as well as the day before. She was started on lisinopril approximately a 8 days ago. She developed swelling of her face and lips 2 days prior to her 1st visit and was slowly worsening. Patient had some mild improvement in the department. She feels like it is sort of return to its prior state but during our discussion she does not feel it significantly worse. Patient also notes some redness although yesterday she had noticed this as well and had stated at that time that that was normal. Patient has not any shortness of breath, no wheezing, no no airway impingement, she has not any nausea or vomiting. No diarrhea. She has not any rash or skin changes elsewhere. She has not had any additional doses of her lisinopril. She is on aspirin daily as well as several other cardiac medications. We had discussed yesterday there are no new likely exposures in her current history. Patient states her blood pressure has been appropriate. She has an appointment scheduled tomorrow with her primary care physician for follow-up. She has taken at least 1 dose of her prednisone. She states she has been taking the Benadryl as needed. Related Data Home Medications Medication Instructions Recorded Confirmed fluoxetine [Prozac] 20 mg PO QDAY #0 07/21/12 03/06/20 levothyroxine [Tirosint] 75 mcg PO Q DAY #0 07/21/12 03/06/20 amitriptyline 25 mg tablet 25 mg PO DAILY 07/07/18 03/06/20 aspirin 81 mg tablet,delayed 81 mg PO DAILY 07/07/18 03/06/20 release atorvastatin 80 mg tablet 80 mg PO DAILY 07/07/18 03/06/20 carvedilol 12.5 mg tablet 12.5 mg PO BID 07/07/18 03/06/20 magnesium oxide 500 mg capsule 500 mg PO DAILY cap 07/07/18 03/06/20 Previous Rx's Medication Instructions Recorded mupirocin 2 % topical ointment 1 applic TOP TID #30 gram 03/06/20 oxycodone 5 mg PO Q6H PRN #14 tab 12/15/20 prednisone 40 mg PO DAILY #6 tab 12/15/20 Allergies Allergy/AdvReac Type Severity Reaction Status Date / Time morphine Allergy Intermediate VOMITING, Verified 12/17/20 12:55 HIVES metoprolol Allergy Unknown KIDNEY Verified 12/17/20 12:55 FAILURE meperidine AdvReac Mild NAUSEA Verified 12/17/20 12:55 Review of Systems Review of Systems ROS Unobtainable: All systems reviewed & are unremarkable except as noted in HPI and below Patient History Medical History Breast cancer Cellulitis Heart valve stenosis History of [place] (myocardial infarction) Hypertension Skin abrasion Surgical History S/P lumpectomy, left breast Status post left breast lumpectomy Family History Mother Heart disease Diabetes mellitus Sister Cancer Hyperlipidemia Stroke Social History household members: none occupational status: previously employed Smoking Status: Never smoker alcohol intake: current substance use type: does not use Smoking Status: Never smoker alcohol intake frequency: holidays/special occasions only Substance Use Type: does not use Exam Narrative Exam Narrative: GEN: well nourished, well appearing female, alert and oriented x 3, patient appears to be in mild distress. HEENT: Atraumatic, pupils are equal round reactive to light, extraocular movements are intact, nares are clear, TMs are clear with no fluid, there is no conjunctival pallor. Throat is clear without any exudates, erythema, tonsillar enlargement or uvular deviation, Nisa patient has some very mild swelling of the upper lip which does not appear to have progressed in the past 2 days. Patient tongue does not appear to have increased in size in any way. She has some mild erythema to the cheeks but no raised hives or other rash. This was present yesterday and is actually. Slightly improved from yesterday. HEART: Regular rate and rhythm without murmur, clicks, rubs. No carotid bruits, pulses are equal in upper and lower extremities LUNGS:Lungs clear to auscultation, no wheezes, rales, crackles, chest moves symmetrically ABD:bowel sounds normal, soft, non-tender, no guarding, rebound, rigidity, no masses noted, no hepatosplenomegaly MSCL: Full range of motion, normal gait NEURO:CN 2-12 intact, sensation normal SKIN: No rash, blistering other skin T is appreciated other than noted above. Initial Vital Signs Initial Vital Signs: Vital Signs Temperature 97.6 F 12/17/20 12:51 Pulse Rate 70 12/17/20 12:51 Respiratory Rate 14 12/17/20 12:51 Blood Pressure 194/86 H 12/17/20 12:51 Pulse Oximetry 98 12/17/20 12:51 Course Vital Signs Vital signs: Vital Signs - 8 hr 12/17/20 12:51 12/17/20 16:01 Temperature 97.6 F Pulse Rate 70 69 Respiratory Rate 14 Blood Pressure 194/86 H 130/62 Pulse Oximetry 98 97 Discharge Plan Departure Patient Disposition: Home Clinical Impression: Adverse reaction to lisinopril, Angioedema Activity Restrictions/Additional Instructions: Follow up at your appointment with Dr. Bran tomorrow. Do not restart your lisinopril. Continue the medications as prescribed. Please return for new or worsening symptoms, increasing swelling of your face, tongue, airway, curving wheezing, persistent vomiting, diarrhea, lightheadedness or passing out, new redness or swelling of the rest of her body or new rash or other new or concerning symptoms. Prescriptions: No Action mupirocin 2 % ointment 1 applic TOP TID Qty: 30 RF: 0 fluoxetine [Prozac] 10 MG capsule 20 mg PO QDAY Qty: 0 RF: 0 levothyroxine [Tirosint] 75 MCG capsule 75 mcg PO Q DAY Qty: 0 RF: 0 amitriptyline 25 mg tablet 25 mg PO DAILY RF: 0 aspirin 81 mg tablet,delayed release (DR/EC) 81 mg PO DAILY RF: 0 atorvastatin 80 mg tablet 80 mg PO DAILY RF: 0 carvedilol 12.5 mg tablet 12.5 mg PO BID RF: 0 magnesium oxide 500 mg capsule 500 mg PO DAILY RF: 0 prednisone 20 mg tablet 40 mg PO DAILY Qty: 6 RF: 0 oxycodone 5 mg tablet 5 mg PO Q6H PRN (Reason: pain) Qty: 14 RF: 0 Referrals: Donna Bran MD [Primary Care Provider] -
== END 2020-12-17 16:41 | disposition home or self-care (01) ==
PROVIDERS: Emergency Provider Emergency Medicine; PCP Student in an Organized Health Care Education/Training Program
DX: T78.3XXA Angioneurotic edema, initial encounter (principal); T46.4X5A Adverse effect of angiotensin-converting-enzyme inhibitors, initial encounter
CPT/HCPCS: 99281

== ENCOUNTER → 2020-12-24 09:34 | Outpatient (CLI) | payer MEDICARE, OTHER, SELFPAY ==
--- NOTE | 2020-12-24 09:35 | DI.CT.S_ITS ---
PROCEDURE: CT CHEST WO CON INDICATIONS: Pleurodynia TECHNIQUE: Noncontrast 5 mm thick sections acquired from the pulmonary apices to the posterior costophrenic angles. 1 mm lung window, 5 mm thick coronal and sagittal and 7 mm axial MIP reformats were then acquired. For radiation dose reduction, the following was used: automated exposure control, adjustment of mA and/or kV according to patient size. COMPARISON: [facility], CR, XR CHEST 2V, 12/11/2020, 15:03. FINDINGS: Image quality: Excellent. Lungs and pleura: Linear scarring/atelectasis and mild adjacent pleural thickening in anterior aspect of left upper lobe is seen. Mild scattered atelectasis in periphery of bilateral lower lobes and right middle lobe is also seen. No pleural effusions or pneumothorax. Central and peripheral airways are patent and normal in caliber. Mediastinum: Heart size is normal. No pericardial effusion. Prosthetic aortic valve is seen. Moderate atherosclerotic calcifications in coronary vessels and thoracic aorta is noted. No mediastinal adenopathy by size criteria. Thoracic aorta and central pulmonary arteries are normal in size. Esophagus is normal in caliber. There is a small hiatal hernia. Bones and chest wall: No suspicious bony lesions. No vertebral body compression fractures. Mild degenerative disc disease throughout thoracic spine is seen. No axillary or supraclavicular adenopathy by size criteria. Thyroid gland is within normal limits. Surgical clips are noted in left breast and left axilla. Abdomen: Visualized upper abdominal solid organs and bowel loops appear normal in the absence of contrast. IMPRESSION: 1. Linear scarring/atelectasis in anterior left upper lobe with mild adjacent anterior pleural thickening. Mild scattered atelectasis in periphery of bilateral lung starkey. No pleural effusion or pneumothorax. Airway is patent. 2. Postsurgical changes seen in left breast and left axilla. No lymphadenopathy is seen in the chest. No suspicious osseous lesion. 3. Extensive atherosclerotic disease. Prosthetic aortic valve is seen. Dictated by: Mauricio Murrell M.D. on 12/24/2020 at 10:58 Approved by: Mauricio Murrell M.D. on 12/24/2020 at 11:12
== END ==
PROVIDERS: PCP Student in an Organized Health Care Education/Training Program; Referring Provider Student in an Organized Health Care Education/Training Program; Visit Provider Student in an Organized Health Care Education/Training Program
DX: R07.81 Pleurodynia (principal); J98.11 Atelectasis; I25.10 Atherosclerotic heart disease of native coronary artery without angina pectoris; K44.9 Diaphragmatic hernia without obstruction or gangrene; M51.34 Other intervertebral disc degeneration, thoracic region; Z95.2 Presence of prosthetic heart valve
CPT/HCPCS: 71250

== ENCOUNTER → 2021-01-10 11:58 | Outpatient (CLI) | payer MEDICARE, OTHER, SELFPAY ==
[2021-01-10 14:49] LABS: BUN Creatinine Ratio 14.1 (6-22); Blood Urea Nitrogen 9 mg/dL (7-17); Carbon Dioxide 29 mmol/L (22-32); Chloride 97 mmol/L (98-107); Estimated Glomerular Filt Rate > 60.0 mL/min (>60); Glucose 83 mg/dL (80-110); HEMOLYSIS 29 (0-50); Potassium 4.2 mmol/L (3.4-5.1); Sodium 133 mmol/L (137-145)
== END ==
PROVIDERS: PCP Student in an Organized Health Care Education/Training Program; Referring Provider Specialist; Visit Provider Specialist
DX: I10 Essential (primary) hypertension (principal)
CPT/HCPCS: 36415; 80048

== ENCOUNTER → 2021-01-17 09:36 | Outpatient (CLI) | payer MEDICARE, OTHER, SELFPAY ==
[2021-01-17 10:21] LABS: COVID19 -Nasal RAPID Negative (Negative)
== END ==
PROVIDERS: PCP Student in an Organized Health Care Education/Training Program; Referring Provider Internal Medicine; Visit Provider Internal Medicine
DX: Z20.822 Contact with and (suspected) exposure to COVID-19 (principal)
CPT/HCPCS: 87635; C9803

== ENCOUNTER → 2021-02-14 09:33 | Outpatient (CLI) | payer MEDICARE, OTHER, SELFPAY ==
[2021-02-14 10:45] LABS: COVID19 -Nasal RAPID Negative (Negative)
== END ==
PROVIDERS: PCP Student in an Organized Health Care Education/Training Program; Referring Provider Internal Medicine; Visit Provider Internal Medicine
DX: Z20.822 Contact with and (suspected) exposure to COVID-19 (principal)
CPT/HCPCS: 87635; C9803

== ENCOUNTER → 2021-02-15 10:37 | Outpatient (CLI) | payer MEDICARE, OTHER, SELFPAY ==
--- OUTSIDE RECORDS SUMMARY | 2020-12-20 09:14 | XMS_ITS | Referral Summary ---
:1935 Author Organization [facility] Address [address] [place] [address] Care Team Providers Name Role Phone Yennifer Bran MD Primary Care Provider Reason for Referral Hospital - Outpatient (Routine) Status Reason Specialty Diagnoses / Procedures Referred By C ontisaiah Referred To Contact Closed Diagnoses Dyspnea on exertion Cough variant asthma [facility]ballFORMERLY [facility] Procedures Complete PFT with DLCO [address] [place] [address] [address] [id number] [place], [place] Phone: [phone] Phone: Electronically signed by Ze Kimball MD atConsultation (Routine) Status Reason Specialty Diagnoses / Referred By Referred To Procedures Contact Contact Pending Review Specialty Cardiology Diagnoses Dyspnea on exertion [facility] [employer] Ze Fonseca MD Cardiology Required [facility] [address] [place] [address], [address] [place], [place] [address] [id number] Phone: Fax: Scheduling Instructions Soledad Taran in 2 to 3 months Electronically signed by Ze Kimball MD at Reason for Visit Reason Comments Coronary Artery Disease Fatigue Shortness of Breath Hypertension Encounter Details Date Type Department Care Team Description 12/05/2020 Office Visit [facility] Ze Kimball Essential hypertension (Primary Dx); Елена Fonseca MD Coronary artery disease involving [place] coronary artery of [place] heart without angina pectoris; [place] [address] [place] [address] Palpitations; [facility], [address] SVT (supraventricular tachycardia) ([facility]); D [place], [place] Dyspnea on exertion; [place] [address] Dyslipidemia; [id number] Cough variant asthma [phone] Allergies Active Allergy Reactions Severity Noted Date Comments Meperidine Nausea And Vomiting Low 02/10/2017 Other re action(s): GI intolerance Meperidine Hcl GI intolerance Low 02/10/2017 Metoprolol 11/02/2017 Other reaction( s): Kidney Failure Other reaction( s): Kidney Failure Metoprolol Tartrate 11/02/2017 Morphine Hives Low 02/10/2017 Preservative 02/10/2017 Simvastatin 02/10/2017 documented as of this encounter (statuses as of 12/19/2020) Medications Medication Sig Dispensed Refills Start End Status Date Date amitriptyline Take 1 tablet by 0 Active (ELAVIL) 25 mg mouth nightly tablet aspirin (ASPIRIN Take 81 mg by 0 12/05/19 Active LOW DOSE) 81 mg EC mouth daily. 15 tablet levothyroxine Take 0.5 tablets 0 Active (SYNTHROID, by mouth daily. LEVOTHROID) 75 mcg tablet FLUoxetine 1 capsule daily. 0 Ac tive (PROzac) 20 mg capsule acetaminophen Take by mouth. 0 A ctive (TYLENOL) 325 mg Take as needed tablet docusate sodium Take by mouth 0 Active (STOOL SOFTENER daily as needed ORAL) FLUAD [id number], inject 0.5 0 05/05/20 Ac tive 65 YR UP,,PF, 45 milliliters 19 mcg (15 mcg x intramuscularly 3)/0.5 mL syringe amoxicillin Take 4 capsules 4 capsule 0 03/09/20 Ac tive (AMOXIL) 500 mg (2,000 mg total) 20 capsule one hour before dental procedure. Fluad Quad inject 0.5 0 04/10/20 Active 2019-,65y milliliters 20 up,,PF, 60 mcg (15 intramuscularly mcg x 4)/0.5 mL syringe magnesium oxide Take 400 mg by 90 capsule 3 05/21/20 Active 500 mg capsule mouth daily 20 carvediloL (COREG) Take 1 tablet 180 tablet 3 12/06/19 Active 6.25 mg tablet (6.25 mg total) by 21 mouth 2 (two) times a day with meals atorvastatin Take 1 tablet by 90 tablet 3 12/06/19 Active (LIPITOR) 80 mg mouth once daily 21 tablet for high cholesterol. mupirocin Apply 1 0 03/06/20 Discontinu ed (BACTROBAN) 2 % application (T herapy ointment topically as complet ed) needed atorvastatin Take 1 tablet by 90 tablet 3 05/21/20 Discontinued (LIPITOR) 80 mg mouth once daily (Reorder) tablet for high cholesterol. carvediloL (COREG) Take 0.5 tablet 135 tablet 3 05/21/2011/16 Discontinued 12.5 mg tablet (6.25 mg) by mouth (Reorder) every morning, and take 1 tablet (12.5 mg) every evening. spironolactone Take 0.5 tablets 45 tablet 3 05/21/20 Discontinued (ALDACTONE) 25 mg (12.5 mg total) by (Therapy tablet mouth every complete d) morning lisinopriL Take 1 tablet (10 90 tablet 3 12/06/19 D iscontinued (PRINIVIL) 10 mg mg total) by mouth (Allergic tablet daily response) documented as of this encounter (statuses as of 12/19/2020) Active Problems Problem Noted Date Status post transcatheter aortic valve replacement (TA VR) using 12/24/2018 bioprosthesis Polymyalgia rheumatica 01/20/2018 Sinus tachycardia 01/20/2018 Musculoskeletal pain 11/03/2017 Overview: HISTORY: issues of chronic musculoskeletal pain starting in her 30's when her children were young that lasted for a few months - legs, arms and chest at the time. In the s she started having more pains in her arms and hands and at time s in her feet and felt horrible and was diagnosed with fibromyalgia around that time (around 1985 or so) subsequently got better but had issues of activity driven pain. ?? In July 2017 and she stated she b ecame nauseated and felt horrible all over with worsening lumps and bumps and was found eventually to have an elevated ESR in August 2017 and started on prednisone with further details below. LABS: ? CMP normal on 07/21/17 ? TSH normal at 4.23 on 07/21/17 ? CRP of 0.2 mg/dL and ESR of 106 on 09/03/17 according to chart note from ? ESR of 5 on 09/25/17 ? TSH normal at 1.87 on 09/27/17 ? CRP less than 0.5 mg/dL and ESR of 3 on 09/27/17 ? CMP noteworthy for serum sodium of 132 and chloride of 94? both low and a LT high at 65 with normal AST at 30 and total bilirubin of 0.6 with alkaline phosphatase of 89 on 09/27/17 ? CBC with white blood count of 13.6 with 91.6 PMNs absolute neutrophil count of 12.5 but otherwise normal on 09/27/17 ? C3 normal at 146 and C4 normal at 32 with total complement greater than 60 on 11/03/17 ? CRP of 0.34 mg/dL and ESR of 6 with normal CBC and CMP aside from chloride of 91 on 11/03/17 ? Uric acid of 3.8 on 11/03/17 ? CK normal at 69 and aldolase normal at 7 on 11/03/17 RADIOLOGY: ? Ultrasound of extremities evaluation for palpable nodules around both elbows as well as bilateral feet on 09/07/17? report states no sonographic correlate with palpable lumps around both elbows and feet REFERRAL HISTORY: ?? Patient referred by Dr. Jamil orosco on 09/25/17 for concerns of polymalgia rheumatica with high ESR and concerns of lumps and bumps that is not improved symptomatically with prednisone as high as 40 mg a day. 22 pages of referral rec ords reviewed which included chart notes as well as labs. Patient was apparently initially seen on 09/10/17 for concerns of nausea for approximately 3 days and fe katt thomson stating that every morning she wakes up and feels like vomiting. She also states that she was having lumpy pain mostly in her extremities and note also gives report of patient having somet cally similar after the of her firs t child was reportedly evaluated and told she had a progressive muscle disease. There was another episode in 1982 of similar symptoms and was reportedly diagnosed with 5 myalgia and was on prednisone briefly. Last Assessment & Plan: IMPRESSION: -- Patient certainly has issues of degen erative arthritis but has an unusual complaint as dictated above and certainly not consistent with polymalgia rheumatica but with a concerning high ESR in the set ting of having nausea and generalized ma laise in August 2016. The nausea has seemingly resolved but the fatigue remains and was not improved with prednisone use. -- On exam patient has no muscle atrophy and no muscle weakness. She certainly has no proximal muscle weakness. She is no cutaneous manifestations. She does seem to have significant myalgias. Her neck m uscles are strong, although she does hav e muscle spasms and pain around these areas. Of some concern is her description of difficulty lifting pots and pans in getting in and out of vehicles. Her overall weakness is of some concern by complain t although I do not appreciated on my exam. -- I do not have any explanation for the lumps and bumps the patient is stating that she feels. I should do not appreciate them on my exam. This certainly possible there small lipomas that are causing her pain. -- I did express to the patient with her pains getting worse as the day goes on her significant fatigue that there is a possibility that this is a fibromyalgia related flare. Patient verbalizes understanding PLAN: -- Ordered a multitude of labs to rule o ut a myopathy -- Chest x-ray -- We will call the patient with the res ults and then determine follow-up from there. If nothing is found the patient may need to see a neurologist for further evaluation into her perceived muscle weakness. Osteoarthropathy 11/03/2017 Last Assessment & Plan: ?? Patient has a known problem of osteoa rthritis with mild degenerative changes noted in her right hand and a history of a rig ht total knee arthroplasty. RBBB 08/06/2017 CAD (coronary artery disease) 07/27/2017 Overview: 09/20/2007 Mixed hyperlipidemia 07/27/2017 Overview: 09/20/2007 Palpitations 07/27/2017 Overview: 09/21/2007 SVT (supraventricular tachycardia) 07/27/2017 Overview: Brief, nonsustained; 03/06/2014 Nonrheumatic aortic valve stenosis 07/27/2017 Overview: 09/21/2007 Formatting of this note might be differe nt from the original. 09/21/2007 Last Assessment & Plan: ?? Known problem of aortic stenosis bein g followed by [facility] cardiology? Dr. Ze Kimball Last Assessment & Plan: ?? Known problem of aortic stenosis being followed by [facility] cardiology? Dr. Ze Kimball Atypical chest pain 07/27/2017 Overview: 09/20/2007 Fatigue 07/27/2017 Overview: 09/21/2007 Dyspnea 07/27/2017 Overview: 09/21/2007 Hypothyroidism 07/27/2017 Overview: 09/21/2007 Breast cancer 07/27/2017 Overview: 09/21/2007 S/P coronary angioplasty 07/27/2017 Overview: To RCA, 1994; 10/15/2011 Essential hypertension 07/27/2017 Overview: 09/20/2007 Dyslipidemia 07/27/2017 documented as of this encounter (statuses as of 12/19/2020) Resolved Problems Problem Noted Date Resolved Date Hypertension 07/27/2017 12/05/2020 Overview: 09/20/2007 Unstable angina 07/27/2017 08/06/2017 Overview: 1994; 09/20/2007 documented as of this encounter (statuses as of 12/19/2020) Immunizations Name Administration Dates Next Due Influenza, Quadrivalent 08/14/2017, 06/10/2016, 06/29/2015, 05/09/2014, 04/29/2013, 05/20/2011, 06/04/2010 Live Zoster (Zostavax) 12/24/2012 Pneumococcal Conjugate PCV13 06/29/2015 ([id number]) Pneumococcal Polysaccharide PPV23 01/07/2017 ([id number]) VFC Pneumococcal Conjugate PCV13 06/29/2015 ([id number]) VFC Pneumococcal Polysaccharide PPV23 01/07/2017 ([id number]) documented as of this encounter Social History Tobacco Use Types Packs/Day Years Used Date Former Smoker Cigarettes Quit: 1984 Smokeless Tobacco: Never Used Alcohol Use Drinks/Week oz/Week Comments Yes 14-21 Glasses of wine 14.0 - 21.0 Sex Assigned at Date Recorded Not on file Job Start Date Occupation Industry Not on file Not on file Not on file documented as of this encounter Last Filed Vital Signs Vital Sign Reading Time Taken Comments Blood Pressure 138/70 12/05/2020 11:07 AM PDT Pulse 71 12/05/2020 11:07 AM PDT Temperature - - Respiratory Rate - - Oxygen Saturation - - Inhaled Oxygen Concentration - - Weight 83.5 kg (184 lb) 12/05/2020 11:07 AM PDT Height - - Body Mass Index 27.98 05/21/2020 10:09 AM PDT documented in this encounter Patient Instructions Patient InstructionsVeronique Garcia MA - 12/05/2020 11:00 AM PDTReduce carvedilol from 6.25 mg (half a tablet) in the morning and 12.5 mg (1 tablet) in the evening to 6.25 mg (half a tablet) twice daily until you get your new prescription for a 6.25 mg tablet to betaken twice daily. Start lisinopril 10 mg daily, a prescription has been sent, and you should have a BMP drawn in 2 weeks. Pulmonary function testing at [facility] in the near future Follow-up with Soledad Chirinos in 3 months. Follow-up with me in 6 months with a CMP, NMR LipoProfile, magnesium and ECG documented in this encounter Progress Notes Ze Kimball MD - 12/05/2020 11:00 AM PDT Subjective Patient ID: Navya George is a 85 y.o. female that had concerns including Coronary Artery Disease, Fatigue, Shortness of Breath, and Hypertension. HPI: Cleo returns with her RCA PCI in 1993, SVT treated with metoprolol but later changed to carvedilolbecause of hypertension, and aortic stenosis, now status post TAVR. She had an episode of syncope in 2014 and her carvedilol was initially reduced out of concern for bradycardia but then developed tachycardia and was increased. Her nuclear perfusion study showed an EF of 92% without perfusion defects. Lisinopril was stopped because of hypotension but continued to have labile blood pressures and a evaluation for pheochromocytoma was negative. Her echocardiogram in 2015 showed an EF of 60 to 65% with a PAP of 28 mmHg and a CVP of 3 mmHg with moderate???severe aortic stenosis that was unchanged onher echocardiogram from 2016. She was started on prednisone for polymyalgia rheumatica but subsequently tapered off. Her echocardiogram from 2017 showed progressive aortic stenosis with progressive weakness and her echocardiogram from 2018 now showed severe aortic stenosis with progressive exertional dyspnea and underwent catheterization in September 2018 showing a moderately calcified aorta, a 60% stenosis in a diagonal and moderate diffuse disease in the LAD with a small vessel distally. The left circumflex was free of any high-grade stenosis in the RCA had a 30% in-stent restenosis. She subs u nderwent transfemoral TAVR in September 2018. She separately felt improved and follow-up echo showednormal valve and ventricular function. She was seen in the ED in January 2019 with a sensation of left hand numbness and coolness of her left hand but her evaluation was unremarkable. At her last visit on 06/22/2019, she continued to report somewhat labile blood pressures but generally fairly well controlled with only occasional, but improved positional lightheadedness. Echocardiogram on 04/06/20 showed an EF of 65-70%. The right ventricle was normal and there was moderate left atrial enlargement and mild right atrial enlargement, both slightly progressive but normalvalve function. Her ascending aorta was mildly increased but unchanged from previous study. She saw Soledad Chirinos on 05/21/2020, reporting gradually progressive exertional dyspnea and dizzinesswith prolonged standing, and brief palpitations just lasting a few seconds occurring several times per week. She reported blood pressures as high as 170 in the morning but dropping to the low 100s during the day. Her medications were left unchanged. She called on 10/18/2020 reporting worsening fatigue, exertional dyspnea, and leg edema. Her echocardiogram from 11/28/2020 showed an EF of 60 to 65% with possible significant diastolic dysfunction with a pseudonormalized pattern and elevated filling pressures but an average E/e??? of 21 compared to 23 on the previous study. The right ventricle appeared normal and PAP was 23 mmHg with a CVP of 3 mmHg. There was moderate left atrial enlargement that was unchanged and the bioprosthetic aortic valve was functioning normally with a peak velocity of 2.3 m/s. There was only mild tricuspid regurgitation noted. She returns today continuing to report progressive fatigue and exertional dyspnea but denying any resting dyspnea or orthopnea. She reports mild wheezing with a slight cough that she attributes to allergies. She has had no chest or jaw pain which was her anginal equivalent when she required PCI in 1993. She is not been doing any regular exercise but has been doing housework and shopping with a sense of reduced exercise capacity because of her dyspnea. Her blood pressures remained quite labile, generally 115-160, and generally highest in the morning. She continues to have some mild positional lightheadedness which is unchanged but denies any presyncope or any palpitations. She has had no pedal edema. Her ECG today shows sinus rhythm at 71 bpm with RBBB but is otherwise normal and unchanged since herprevious ECG. The most recent labs from 11/14/2020 showed a BUN of 10 (12 from 03/20/2020), a creatinine of 0.7 (0.6), potassium of 4.3 (4.5), and glucose of 105 (109). Magnesium was 1.9 (2.0), sodium was 134 (133), and she had normal LFTs. Total cholesterol was 142 (155), HDL of 71 (55), LDL of 55 (73), and triglycerides of 84 (173), with a particle number of 741 (1052). Her TSH was 2.4 (5.2 from 11/26/2017). Her proBNP from 03/20/2020 was 317. Past Medical History: Diagnosis Date ??? Aortic valve stenosis 08/2007 Mederate aortic valve stenosis ??? Arrhythmia ??? Atypical chest pain ??? Breast carcinoma (CMS/HCC) 1999 ??? CAD (coronary artery disease) ??? Cataract ??? Fall 10/2011 Fell- fx L2-3 in october 2011 ??? Fibromyalgia ??? Fibromyalgia ??? Hepatitis A 1995 ??? History of acute renal failure ??? Hyperlipidemia ??? Hypertension ??? Hypothyroidism ??? Irritable bowel disease ??? Osteoarthritis ??? Osteoporosis ??? Unstable angina (CMS/HCC) Past Surgical History: Procedure Laterality Date ??? BACK SURGERY 12/2011 ??? BREAST BIOPSY ??? CARDIAC CATHETERIZATION 09/1993 ??? CATARACT EXTRACTION 2015 ??? CORONARY ANGIOPLASTY 09/1993 PTCA to the RCA ??? CORONARY ARTERY BYPASS GRAFT 2003 ??? FOOT SURGERY 1996 ??? MASTECTOMY 1999 ??? ORIF ANKLE FRACTURE Left 1987 ??? REPLACEMENT TOTAL KNEE Right ??? TONSILLECTOMY AND ADENOIDECTOMY ??? VERTEBROPLASTY 12/2011 Family History Problem Relation Age of Onset ??? Heart disease Mother 62 ??? Diabetes Mother ??? Hypertension Mother ??? Hyperlipidemia Mother ??? Pneumonia Father 79 ??? Hypertension Sister 72 ??? Arrhythmia Sister 72 Cardiac arrhythmia Social History Socioeconomic History ??? Marital status: Spouse name: Not on file ??? Number of children: Not on file ??? Years of education: Not on file ??? Highest education level: Not on file Occupational History ??? Not on file Tobacco Use ??? Smoking status: Former Smoker Types: Cigarettes Quit date: 1984 Years since quittin.3 ??? Smokeless tobacco: Never Used Substance and Sexual Activity ??? Alcohol use: Yes Alcohol/week: 14.0 - 21.0 standard drinks Types: 14 - 21 Glasses of wine per week ??? Drug use: No ??? Sexual activity: Defer Other Topics Concern ??? Not on file Social History Narrative ??? Not on file Social Determinants of Health Financial Resource Strain: ??? Difficulty of Paying Living Expenses: Food Insecurity: ??? Worried About Running Out of Food in the Last Year: ??? Ran Out of Food in the Last Year: Transportation Needs: ??? Lack of Transportation (Medical): ??? Lack of Transportation (Non-Medical): Physical Activity: ??? Days of Exercise per Week: ??? Minutes of Exercise per Session: Stress: ??? Feeling of Stress : Social Connections: ??? Frequency of Communication with Friends and Family: ??? Frequency of Social Gatherings with Friends and Family: ??? Attends Yarsani Services: ??? Active Member of Clubs or Organizations: ??? Attends Club or Organization Meetings: ??? Marital Status: Allergies Allergen Reactions ??? Metoprolol Other reaction(s): Kidney Failure Other reaction(s): Kidney Failure ??? Metoprolol Tartrate ??? Preservative ??? Simvastatin ??? Meperidine Nausea And Vomiting Other reaction(s): GI intolerance ??? Meperidine Hcl GI intolerance ??? Morphine Hives Current Medication List Sig acetaminophen (TYLENOL) 325 mg tablet Take by mouth. Take as needed amitriptyline (ELAVIL) 25 mg tablet Take 1 tablet by mouth nightly amoxicillin (AMOXIL) 500 mg capsule Take 4 capsules (2,000 mg total) one hour before dental procedure. aspirin (ASPIRIN LOW DOSE) 81 mg EC tablet Take 81 mg by mouth daily. atorvastatin (LIPITOR) 80 mg tablet Take 1 tablet by mouth once daily for high cholesterol. carvediloL (COREG) 6.25 mg tablet Take 1 tablet (6.25 mg total) by mouth 2 (two) times a day with meals docusate sodium (STOOL SOFTENER ORAL) Take by mouth daily as needed FLUAD [id number], 65 YR UP,,PF, 45 mcg (15 mcg x 3)/0.5 mL syringe inject 0.5 milliliters intramuscularly Fluad Quad 2020-,65y up,,PF, 60 mcg (15 mcg x 4)/0.5 mL syringe inject 0.5 milliliters intramuscularly FLUoxetine (PROzac) 20 mg capsule 1 capsule daily. levothyroxine (SYNTHROID, LEVOTHROID) 75 mcg tablet Take 0.5 tablets by mouth daily. magnesium oxide 500 mg capsule Take 400 mg by mouth daily atorvastatin (LIPITOR) 80 mg tablet (Discontinued) Take 1 tablet by mouth once daily for high cholesterol. carvediloL (COREG) 12.5 mg tablet (Discontinued) Take 0.5 tablet (6.25 mg) by mouth every morning, and take 1 tablet (12.5 mg) every evening. lisinopriL (PRINIVIL) 10 mg tablet Take 1 tablet (10 mg total) by mouth daily mupirocin (BACTROBAN) 2 % ointment (Discontinued) Apply 1 application topically as needed spironolactone (ALDACTONE) 25 mg tablet (Discontinued) Take 0.5 tablets (12.5 mg total) by mouth every morning Review of Systems Constitutional: Negative for fatigue and unexpected weight change. Eyes: Negative for visual disturbance. Respiratory: Negative for chest tightness and shortness of breath. Cardiovascular: Negative for chest pain, palpitations and leg swelling. Gastrointestinal: Negative for blood in stool. Neurological: Negative for dizziness and weakness. Hematological: Does not bruise/bleed easily. Psychiatric/Behavioral: The patient is not nervous/anxious. Objective BP 138/70 (BP Location: Left arm, Patient Position: Sitting) Pulse 71 Wt 83.5 kg BMI 27.98 kg/m?? Physical Exam: General Appearance: Mildly overweight elderly female in no distress HEET: Normocephalic atraumatic, EOMI, no scleral icterus, no arcus Neck: No obvious mass, supple Respiratory: Clear to auscultation without rales or wheeze Cardiovascular: RRR, normal S1 and normal S2, 2/6 systolic ejection murmur rating to both carotids,no gallops, JVP 3-6 cm with considerable respiratory variation but without any obvious hepatojugularreflux. Pulses: Carotid pulses 2+ bilaterally with normal carotid upstroke and no bruit. Abdomen: Soft, nondistended, nontender, no hepatosplenomegaly. Extremities: Warm with no edema. Neuro: Alert, moves all four extremities, no gross motor deficits Psych: Appropriate affect, normal mentation and memory Skin: Warm and dry, no obvious rashes Assessment/Plan Diagnoses and all orders for this visit: Essential hypertension - Basic metabolic panel; Future - Magnesium; Future Coronary artery disease involving [place] coronary artery of [place] heart without angina pectoris - ECG 12 Lead (Clinic - Future) - ECG 12 lead; Future Palpitations SVT (supraventricular tachycardia) (CMS/HCC) Dyspnea on exertion - Ambulatory referral to Cardiology - Complete PFT with DLCO; Future Dyslipidemia - Comprehensive Metabolic Panel; Future - NMR LipoProfile; Future Cough variant asthma - Complete PFT with DLCO; Future Other orders - carvediloL (COREG) 6.25 mg tablet; Take 1 tablet (6.25 mg total) by mouth 2 (two) times a day with meals - lisinopriL (PRINIVIL) 10 mg tablet; Take 1 tablet (10 mg total) by mouth daily - atorvastatin (LIPITOR) 80 mg tablet; Take 1 tablet by mouth once daily for high cholesterol. Assessment/Plan Comments: 1. CAD without angina. She remains free of any anginal type discomfort, given this I would continue with secondary prevention. If her exertional dyspnea remains progressive and unexplained, an exercise nuclear perfusion study could be considered. 2. Sinus tachycardia. Her heart rates appear to be well controlled on her current dose of carvedilolwhich she appears to be tolerating well, thus will continue with the same except reduce her evening dose because of her sense of fatigue. 3. Aortic valve stenosis now status post TAVR. She has completed cardiac rehabilitation and her recent echocardiogram shows excellent valve function. 4. Palpitations. She remains asymptomatic. If they return, repeat Zio patch may be appropriate. 5. Hypertension. Her blood pressure remains occasionally labile, yet appears to be borderline controlled and with her fatigue, I will reduce her carvedilol from 6.25 mg the morning and 12.5 mg in the evening to 6.25 mg twice daily. In an effort to better control her blood pressure I will have her start lisinopril 10 mg daily with a BMP in several weeks I have encouraged her to continue to track her blood pressure at home and to minimize her sodium intake. 6. Hyperlipidemia. Her stent lipid panel shows excellent control and I have her continue her currentmedications. Plan to recheck prior to her next visit. 7. Exertional dyspnea with RBBB. I do not see any obvious evidence of volume overload on exam despite her echocardiogram that suggested possible increased filling pressures. However, with her low CVP and positional lightheadedness, I am reluctant to pursue diuresis at this point. Given her reported wheezing and cough, I wonder if she has some degree of bronchospastic disease or other intrinsic lung disease that could be contributing to her dyspnea. I will have her obtain PFTs to assess for thisand if abnormal, she may require changing her carvedilol to a beta-1 selective beta-carolin and havemore extensive evaluation and treatment for lung disease by her PCP. She will reduce her carvedilol from 6.25 mg the morning and 12.5 mg in the evening to 6.25 mg twice daily and start lisinopril 10 mg daily in the evening. A BMP will be obtained in 2 weeks with telephone follow-up. She will obtain PFTs with DLCO in the near future with telephone follow-up and see Soledad Chirinos back in 2 to 3 months to reassess. If she continues to have exertional dyspnea that remains unexplained, an ischemic evaluation or trial of diuretics could be considered. I will plan on seeing her back in 6 months with ECG and labs including CMP, NMR LipoProfile, and magnesium levels performed prior to her next appointment. I spent a total of 72 minutes reviewing medical records and preparing and executing today's clinicalvisit. Electronically signed by Ze Kimball MD 12/05/2020 11:56 AM This note was generated utilizing voice recognition software. While attempts have been made to correct mistakes, common errors may occur, including substitution of words that sound phonetically similar to the intended word as well as random substitution errors. Please take this into consideration and use clinical context when necessary. documented in this encounter Plan of Treatment Upcoming Encounters Date Type Specialty Care Team Description 05/27/2021 Office Visit Cardiology Ze Kimball MD [address] [address] [place] [address] [phone] Scheduled Orders Name Type Priority Associated Diagnoses Order S chedule Basic metabolic panel Lab Routine Essential hypertens ion Expected: 12/19/2020, Expires: 2021 Comprehensive Metabolic Lab Routine Dyslipidemia Expe cted: 06/06/2021 Panel (Approximate), Expires: 2021 Magnesium Lab Routine Essential hypertension Expec olinda: 06/06/2021 (Approximate), Expires: 2021 NMR LipoProfile Lab Routine Dyslipidemia Expected: (Approximate), Expires: 2021 ECG 12 lead ECG Routine Coronary artery disease Expe cted: 06/06/2021 involving [place] (Approximat e), coronary artery of Expires: 12/05/2021 [place] heart without angina pectoris Complete PFT with DLCO PFT Routine Dyspnea o n exertion 1 Occurrences starting Cough variant asthma 021 until 12/05/2021 Scheduled Referrals Name Type Priority Associated Order Schedule Diagnoses Ambulatory referral Outpatient Referral Routine Dyspnea on exe rtion Ordered: to Cardiology 12/05/2020 documented as of this encounter Implants Implanted Type 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 artery of [place] heart without angina pectoris documented in this encounter Results ECG 12 Lead (Clinic - Future) (12/05/2020 11:17 AM PDT) Narrative Performed At This result has an attachment that is no t available. Result approved by Ze Kimball MD on 12/05/20 documented in this encounter Visit Diagnoses Diagnosis Essential hypertension - Primary Unspecified essential hypertension Coronary artery disease involving [place] coronary artery of [place] heart without angina pectoris Palpitations SVT (supraventricular tachycardia) (CMS/ HCC) Other specified cardiac dysrhythmias Dyspnea on exertion Other dyspnea and respiratory abnormalit y Dyslipidemia Other and unspecified hyperlipidemia Cough variant asthma Cough variant asthma documented in this encounter Insurance Payer Benefit Plan / Subscriber ID Effective Dates Phone Addre ss Type Group MEDICARE MEDICARE PART A [id number] 2000-Present AND [place] [employer] [place] [id number] 2017-Present SUPP SUPP documented as of this encounter Advance Directives Documents on File Type Date Recorded 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
--- NOTE | 2021-02-20 09:35 | PM.PFT.1 ---
Pulmonary Function Test Referral & Results Date Patient Seen: 02/15/21 Requesting provider: Ze Kimball Results: The spirometry demonstrates an FVC of 2.37 L which is 82% of predicted. The FEV1 was measured at 1.85 L which is 86% of predicted. The FEV1/FVC ratio was 78 which is 106% of predicted. Following the administration of bronchodilator there was no change. Lung volumes show an SVC of 2.27 L which is 77% of predicted. The diffusing capacity was measured at 17.53 which is 59% of predicted. No hemoglobin value was provided, so no correction for potential anemia could be made, if appropriate. The maximum voluntary ventilation was reduced Interpretation: This study demonstrates probably normal spirometry although there may be minimal restrictive lung disease based on minimal reduction SVC There is a notable reduction in diffusing capacity suggesting some element of disease at the capillary alveolar level Clinical correlation suggested
== END ==
PROVIDERS: PCP Student in an Organized Health Care Education/Training Program; Referring Provider Specialist; Visit Provider Specialist
DX: R06.00 Dyspnea, unspecified (principal); J45.991 Cough variant asthma; J98.8 Other specified respiratory disorders; Z87.891 Personal history of nicotine dependence
CPT/HCPCS: 94060; 94726; 94729

== ENCOUNTER → 2021-03-28 11:03 | Outpatient (CLI) | payer MEDICARE, OTHER, SELFPAY ==
--- NOTE | 2021-03-28 | DI.RAD.S_ITS ---
PROCEDURE: XR HAND RT MIN 3V INDICATIONS: right hand pain TECHNIQUE: 3 views of the hand(s) acquired. COMPARISON: None. FINDINGS: Bones: No fractures or dislocations. Carpal bones are normally aligned. No suspicious bony lesions. Joint space narrowing and subchondral cysts noted involving the 1st and 3rd carpometacarpal joints. Second through 3rd distal interphalangeal joint space narrowing and small marginal osteophytes present. Soft tissues: No suspicious soft tissue calcifications. 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 on 03/28/2021 at 13:57
== END ==
PROVIDERS: PCP Student in an Organized Health Care Education/Training Program; Referring Provider Student in an Organized Health Care Education/Training Program; Visit Provider Student in an Organized Health Care Education/Training Program
DX: M79.641 Pain in right hand (principal); M19.041 Primary osteoarthritis, right hand
CPT/HCPCS: 73130

== ENCOUNTER → 2021-05-14 09:03 | Outpatient (CLI) | payer MEDICARE, OTHER, SELFPAY ==
[2021-05-14 10:15] LABS: Alanine Aminotransferase 29 IU/L (<35); Albumin 3.9 g/dL (3.5-5.0); Albumin Globulin Ratio 1.6 (1.0-2.8); Alkaline Phosphatase 91 U/L (38-126); Aspartate Aminotransferase 34 IU/L (14-36); Bilirubin Total 0.6 mg/dL (0.2-1.3); Blood Urea Nitrogen 11 mg/dL (7-17); Calcium 9.2 mg/dL (8.4-10.2); Carbon Dioxide 29 mmol/L (22-32); Chloride 100 mmol/L (98-107); Estimated Glomerular Filt Rate > 60.0 mL/min (>60); Globulin 2.4 g/dL (1.7-4.1); Glucose 107 mg/dL (80-110); HEMOLYSIS < 15 (0-50); Magnesium 1.9 mg/dL (1.6-2.3); Potassium 4.6 mmol/L (3.4-5.1); Sodium 135 mmol/L (137-145); Total Protein 6.3 g/dL (6.3-8.2)
[2021-05-16 08:45] LABS: Cholesterol, Total 139 mg/dL (100-199); HDL-Cholesterol 59 mg/dL (>39); HDL-Particle (Total) 41.3 umol/L (>=30.5); Historical Reading Comment: (.); LDL Particle 753 nmol/L (<1000); LDL Size 21.2 nm (>20.5); LDL-Cholsterol 60 mg/dL (0-99); LP-IR Score 39 (<=45); Small LDL- Particle 328 nmol/L (<=527); Triglycerides 109 mg/dL (0-149)
== END ==
PROVIDERS: PCP Student in an Organized Health Care Education/Training Program; Referring Provider Specialist; Visit Provider Specialist
DX: E78.5 Hyperlipidemia, unspecified (principal); I10 Essential (primary) hypertension
CPT/HCPCS: 36415; 80053; 80061; 83704; 83735

== ENCOUNTER → 2021-06-24 10:06 | Outpatient (CLI) | payer MEDICARE, OTHER, SELFPAY ==
[2021-06-24 13:22] LABS: COVID19 -Nasal RAPID Negative (Negative)
== END ==
PROVIDERS: PCP Student in an Organized Health Care Education/Training Program; Visit Provider Physician Assistant
DX: Z20.822 Contact with and (suspected) exposure to COVID-19 (principal); Z01.812 Encounter for preprocedural laboratory examination
CPT/HCPCS: 87635; C9803

== ENCOUNTER → 2021-06-25 11:25 | Outpatient (CLI) | payer MEDICARE, OTHER, SELFPAY ==
--- NOTE | 2021-06-26 18:09 | DI.NM.S_ITS ---
DATE OF SERVICE: 06/25/2021 PROCEDURE PERFORMED: Exercise treadmill stress and rest myocardial perfusion imaging with gating to assess ejection fraction and regional wall motion. ORDERING PROVIDER: Dr. Ze Kimball. INDICATIONS: The patient is an 86-year-old female with a history of coronary disease, who now presents with significant exertional dyspnea. EXERCISE TREADMILL TESTING: The patient was able to exercise for 3 minutes, 1 second on a standard [place] protocol, suggesting moderate-severely reduced exercise capacity with an PATY of +26%. She had a normal heart rate response, achieving a maximum heart rate of 124 BPM (93% of her predicted maximum). She had a borderline hypertensive blood pressure response with a resting blood pressure of 112/80, increasing to a maximum of 180/100. She developed mild chest tightness at peak exercise that subsided promptly with rest. Her oxygen saturation remained 97% on room air. Her resting ECG shows sinus rhythm with a RBBB with normal ST segments. There are no significant ST- segment shifts or arrhythmias with stress. At 2 minutes of exercise at a heart rate of 118 BPM, 26.1 millicuries of technetium-99m Myoview was injected and she was imaged 10 minutes later using a gated SPECT acquisition protocol. The day prior while at rest, she had been injected with 25.2 millicuries of technetium-99m Myoview and imaged 30 minutes later, again using a gated SPECT acquisition protocol. FINDINGS: 1. Raw data: There is fairly good myocardial tracer uptake with minimal breast shadows. The lung/heart ratio is normal at 0.35 with a normal TID ratio of 0.88. 2. Quantitated gated SPECT: Post-stress ejection fraction is estimated at 98%, an overestimate because of relatively small left ventricular volumes. There is no focal wall motion abnormality. Resting ejection fraction is estimated at 93%, again an overestimate, with a low normal resting end-diastolic volume of 58 mL. 3. Myocardial perfusion imaging: Post-stress supine images shows a fairly normal perfusion pattern without any perfusion defects, supported by normal perfusion imaging in the prone position. Resting images show a an identical perfusion pattern without any areas of improvement. IMPRESSION: 1. Normal myocardial perfusion study. 2. No evidence of myocardial ischemia or previous myocardial infarction. 3. Vigorous left ventricular systolic function with relatively small left ventricular volumes but no focal wall motion abnormality. 4. Moderate-severely reduced exercise capacity with provokable chest discomfort, but no ECG changes of ischemia or arrhythmias. 5. Compared to the previous myocardial perfusion study of 12/18/2014, the perfusion images appear very similar. Diaphragmatic attenuation is less evident on today's study. The previous ejection fraction was 88 to 92% with an end-diastolic volume of 51 mL, suggesting the absence of any significant change since the previous exam. Navya George - SHIKHA/precious/katherin doc#: [id number]/job#: [id number] dd: 06/26/2021 17:30:00 dt: 06/26/2021 17:45:00 DICTATING /COPIES TO: Ze Kimball MD COPIES MNE: DARCY;
== END ==
PROVIDERS: PCP Student in an Organized Health Care Education/Training Program; Referring Provider Specialist; Visit Provider Specialist
DX: I25.10 Atherosclerotic heart disease of native coronary artery without angina pectoris (principal); R06.00 Dyspnea, unspecified; R07.9 Chest pain, unspecified
CPT/HCPCS: 78452; 93017; A9502

== ENCOUNTER → 2021-08-08 12:07 | Outpatient (CLI) | payer MEDICARE, OTHER, SELFPAY ==
[2021-08-08 12:41] LABS: COVID19 -Nasal RAPID Negative (Negative)
== END ==
PROVIDERS: PCP Student in an Organized Health Care Education/Training Program; Visit Provider Physician Assistant
DX: Z20.822 Contact with and (suspected) exposure to COVID-19 (principal)
CPT/HCPCS: 87635

== ENCOUNTER → 2021-09-11 08:45 | Outpatient (CLI) | payer MEDICARE, OTHER, SELFPAY ==
[2021-09-11 09:14] LABS: Add Manual Diff / Slide Review NO; Basophils Absolute Auto 0 /uL (0-100); Basophils Percent Auto 0.4 % (0-2); Eosinophils Absolute Auto 200 /uL (0-450); Eosinophils Percent Auto 3.7 % (2-4); Hematocrit 39.7 % (36-46); Hemoglobin 13.8 g/dL (12.0-16.0); Lymphocytes Absolute Auto 1600 /uL (1100-4500); Lymphocytes Percent Auto 26.6 % (25-40); Mean Corpuscular HGB Conc 34.6 % (30-36); Mean Corpuscular Hemoglobin 33.1 PG (26-34); Mean Corpuscular Volume 95.6 fL (80-100); Monocytes Absolute Auto 500 /uL (0-900); Monocytes Percent Auto 8.9 % (3-14); Neutrophils Absolute Auto 3600 /uL (1500-7000); Neutrophils Percent Auto 60.4 % (50-75); Platelet Count 203 X10^3/uL (150-400); Red Blood Cell Count 4.15 X10^6/uL (4.0-5.2); Red Cell Distribution Width 13.6 % (11.6-14.8)
== END ==
PROVIDERS: PCP Student in an Organized Health Care Education/Training Program; Referring Provider Podiatrist; Visit Provider Podiatrist
DX: M79.671 Pain in right foot (principal)
CPT/HCPCS: 36415; 85025

== ENCOUNTER → 2021-10-02 13:54 | Outpatient (CLI) | payer MEDICARE, OTHER, SELFPAY ==
[2021-10-02 16:19] LABS: COVID19 -Nasal RAPID Negative (Negative)
== END ==
PROVIDERS: PCP Student in an Organized Health Care Education/Training Program; Visit Provider Family Medicine Sleep Medicine
DX: Z20.822 Contact with and (suspected) exposure to COVID-19 (principal)
CPT/HCPCS: 87635; C9803

== ENCOUNTER 2021-10-04 10:34 | Day surgery (SDC) | payer MEDICARE, OTHER, SELFPAY ==
[2021-09-18 12:50] VITALS: BMI 27.8
[2021-10-04 11:04] VITALS: BP 188/94; PULSE 76; RESP 18; TEMP 35.8; O2SAT 98; BMI 27.8
[2021-10-04] MEDS: LACTATED RINGERS 1,000 ML 100 ML IV (11:19)
--- NOTE | 2021-10-04 12:40 | PM.PREOP ---
Pre-operative Note COVID-19 COVID-19 status: Negative Result date/Date tested (Pos, Neg/Pending): 10/02/21 Interval Note History & Physical reviewed/Exam performed by Physician: Yes Changes to H&P: No
--- NOTE | 2021-10-04 12:41 | PM.OP.1 ---
Operative Date/Time/Diagnoses Date of procedure: 10/04/21 Time of procedure: 12:42 Pre-op diagnosis: Right great toe joint arthritis Post-op diagnosis: same Procedure & Clinicians Procedure: Right first metatarsophalangeal joint cheilectomy Same procedure as scheduled: Yes Indications: Painful great toe joint on the right foot with arthritic changes. Conservative measures failed to alleviate her pain and she wished to have surgical intervention at this time. We spoke the risks, potential complications, as well as expected outcomes and alternatives. Consent was signed, no contraindications to the procedure at this time. Surgeon: Angeles Cervantes Click Yes if Unassisted: Yes Anesthesia Type: General Operative Notes Closure Type: primary Specimen(s): none sent Estimated Blood Loss (mL): 20 Tourniquet time (min): 21 Procedure in detail: The patient was brought to the operating room and placed on the operating table in the supine position. Tourniquet was placed about the right thigh. Patient is well-padded and appropriately supported. After induction of general anesthesia the right foot and ankle were prepped and draped in the usual aseptic manner. The tourniquet was inflated. Incision was made over the dorsal 1st metatarsal phalangeal joint. The incision was deepened through subcutaneous tissues being careful to identify and retract all vital neurovascular structures. All bleeders were cauterized and ligated as necessary. The capsule was entered dorsally at the joint and this exposed the spurring of the dorsal metatarsal head, proximal phalangeal base. Of note, the metatarsal head and phalangeal base showed wearing of cartilage surface. The saw and rongeur were used to resect the dorsal joint spurs. The enlarged medial eminence of the 1st metatarsal head was also reduced. A rasp was used to reduce the sharp edges of the bones. The area was irrigated with copious amounts normal sterile saline. The toe showed increased motion into dorsiflexion and plantar flexion without crepitus. Deep and subcutaneous closure was closed performed with Vicryl. The tourniquet was deflated and a prompt hyperemic response was seen in the foot. Nylon suture used to close the skin. The foot was dressed with a lightly compressive sterile dressing and splint in alignment. Patient was then placed in a postoperative boot and transferred to PACU with vital signs stable. Post-operative Condition: stable Disposition: PACU Plan for aftercare: Following a period of postoperative monitoring, the patient will be discharged to home on written and oral postoperative instructions including keeping the dressing dry and intact, no greater than 50% weight/ambulation on the foot, icing behind the operative knee and elevating the foot when seated home. DVT prevention techniques have been reviewed. For the 1st postoperative visit the dressing will be changed and close to the 3rd postoperative week we will likely remove the sutures.
[2021-10-04] MEDS: CEFAZOLIN 2 GM/20 ML SYRINGE IV (12:55)
--- NOTE | 2021-10-04 13:18 | SUR.OPER ---
Supine on padded OR bed, head on pillow, arms secured on padded arm boards at <90 degrees abduction, legs uncrossed, safety belt at abdomen, tape over blanket over lower left leg, bump under right thigh.
[2021-10-04] MEDS: BUPIVACAINE 0.5% (PF) VIAL 5 ML INJ (13:44)
[2021-10-04] MEDS: LIDOCAINE 2% INJ SDV 5 ML INJ (13:45)
[2021-10-04 14:10] VITALS: BP 135/65; PULSE 69; RESP 15; TEMP 36.6; O2SAT 95
[2021-10-04 14:20] VITALS: BP 128/65; PULSE 69; RESP 13; O2SAT 95
[2021-10-04 14:32] VITALS: BP 128/65; PULSE 66; RESP 16; O2SAT 95
== END 2021-10-04 14:45 | disposition home or self-care (01) ==
LOC: OR 10:35
PROVIDERS: PCP Student in an Organized Health Care Education/Training Program; Referring Provider Podiatrist; Visit Provider Podiatrist
PROC: (CPT 28289; principal; 2021-10-04 12:15)
DX: M19.071 Primary osteoarthritis, right ankle and foot (principal); I10 Essential (primary) hypertension; I25.10 Atherosclerotic heart disease of native coronary artery without angina pectoris; I45.10 Unspecified right bundle-branch block
CPT/HCPCS: 28289; J0690; J2704; J3010

== ENCOUNTER → 2021-10-30 08:16 | Outpatient (CLI) | payer MEDICARE, OTHER, SELFPAY ==
[2021-10-30 10:23] LABS: Add Manual Diff / Slide Review NO; Basophils Absolute Auto 0 /uL (0-100); Basophils Percent Auto 0.6 % (0-2); Eosinophils Absolute Auto 300 /uL (0-450); Eosinophils Percent Auto 6.1 % (2-4); Hematocrit 39.7 % (36-46); Hemoglobin 13.8 g/dL (12.0-16.0); Lymphocytes Absolute Auto 1300 /uL (1100-4500); Lymphocytes Percent Auto 24.9 % (25-40); Mean Corpuscular HGB Conc 34.8 % (30-36); Mean Corpuscular Hemoglobin 32.8 PG (26-34); Mean Corpuscular Volume 94.4 fL (80-100); Monocytes Absolute Auto 500 /uL (0-900); Monocytes Percent Auto 8.5 % (3-14); Neutrophils Absolute Auto 3200 /uL (1500-7000); Neutrophils Percent Auto 59.9 % (50-75); Platelet Count 196 X10^3/uL (150-400); Red Blood Cell Count 4.21 X10^6/uL (4.0-5.2); Red Cell Distribution Width 13.3 % (11.6-14.8); White Blood Cell Count 5.3 X10^3/uL (4.5-11.0)
[2021-10-30 10:53] LABS: Alanine Aminotransferase 28 IU/L (<35); Albumin 4.4 g/dL (3.5-5.0); Albumin Globulin Ratio 1.6 (1.0-2.8); Alkaline Phosphatase 101 U/L (38-126); Aspartate Aminotransferase 35 IU/L (14-36); BUN Creatinine Ratio 10.6 (6-22); Bilirubin Total 0.6 mg/dL (0.2-1.3); Blood Urea Nitrogen 9 mg/dL (7-17); Calcium 8.8 mg/dL (8.4-10.2); Carbon Dioxide 25 mmol/L (22-32); Chloride 101 mmol/L (98-107); Cholesterol 151 mg/dL (140-199); Estimated Glomerular Filt Rate > 60.0 mL/min (>60); Globulin 2.8 g/dL (1.7-4.1); Glucose 111 mg/dL (80-110); HDL Cholesterol 58 mg/dL (40-60); HEMOLYSIS < 15 (0-50); LDL Cholesterol Calculated 72 mg/dL (<100); Magnesium 2.2 mg/dL (1.6-2.3); Potassium 4.7 mmol/L (3.4-5.1); Sodium 133 mmol/L (137-145); Total Protein 7.2 g/dL (6.3-8.2); Triglycerides 103 mg/dL (35-150)
[2021-10-30 10:55] LABS: NT-proBNP (BNP-Adult 18+) 128 pg/mL (<450)
== END ==
PROVIDERS: PCP Student in an Organized Health Care Education/Training Program; Referring Provider Physician Assistant Medical; Visit Provider Physician Assistant Medical
DX: I10 Essential (primary) hypertension (principal); R06.00 Dyspnea, unspecified; E78.2 Mixed hyperlipidemia; I47.1 Supraventricular tachycardia; Z11.59 Encounter for screening for other viral diseases; E03.9 Hypothyroidism, unspecified
CPT/HCPCS: 36415; 80053; 80061; 83735; 83880; 84443; 85025; 86803

== ENCOUNTER → 2021-10-30 12:50 | Outpatient (ROUT) | payer MEDICARE, OTHER, SELFPAY ==
[2021-10-30 13:42] LABS: Thyroid Stimulating Hormone 4.27 uIU/mL (0.47-4.68)
[2021-10-31 16:15] LABS: Hep C Virus Ab w/Reflex Quant NEGATIVE s/c (NEGATIVE)
== END ==
PROVIDERS: PCP Student in an Organized Health Care Education/Training Program; Visit Provider Student in an Organized Health Care Education/Training Program
DX: Z11.59 Encounter for screening for other viral diseases (principal); E03.9 Hypothyroidism, unspecified
CPT/HCPCS: 84443; 86803

== ENCOUNTER → 2021-12-03 11:33 | Outpatient (CLI) | payer MEDICARE, OTHER, SELFPAY ==
--- NOTE | 2021-12-03 | DI.MG.S_ITS ---
BILATERAL DIGITAL SCREENING MAMMOGRAM 3D/2D WITH CAD: 12/03/2021 CLINICAL: Routine screening. Personal history of left breast cancer. Family history of breast cancer. Comparison is made to exams dated: 11/28/2020 mammogram, 03/14/2020 ultrasound, 03/14/2020 mammogram, and 10/18/2019 ultrasound - [facility]. There are scattered fibroglandular elements in both breasts. Current study was also evaluated with a Computer Aided Detection (CAD) system. There are stable benign calcifications in the left breast. There also are benign vascular calcifications in the right breast. Additionally, there are stable benign vascular calcifications in the left breast. Additionally, there also are benign post operative findings in the left breast. No significant masses, calcifications, or other findings are seen in either breast. There has been no significant interval change. IMPRESSION: BENIGN There is no mammographic evidence of malignancy. A 1 year screening mammogram is recommended. This exam was interpreted at Station ID: [id number]. NOTE: For mammograms, a report in lay terms will be sent to the patient. Approximately 15% of breast malignancies will not be visualized mammographically. In the management of a palpable breast mass, a negative mammogram must not discourage biopsy of a clinically suspicious lesion. Electronically Signed By: Maxx amin/ethel:12/03/2021 13:29:42 letter sent: Normal Exam ACR BI-RADS Category 2: Benign Finding(s) 3342F
== END ==
PROVIDERS: PCP Student in an Organized Health Care Education/Training Program; Referring Provider Student in an Organized Health Care Education/Training Program; Visit Provider Student in an Organized Health Care Education/Training Program
DX: Z12.31 Encounter for screening mammogram for malignant neoplasm of breast (principal); Z85.3 Personal history of malignant neoplasm of breast; Z80.3 Family history of malignant neoplasm of breast
CPT/HCPCS: 77063; 77067

== ENCOUNTER → 2022-04-05 09:50 | Outpatient (CLI) | payer MEDICARE, OTHER, SELFPAY ==
--- NOTE | 2022-04-05 09:51 | DI.MRI.S_ITS ---
PROCEDURE: MR FOOT RT WO CON INDICATIONS: Effusion, right foot TECHNIQUE: Noncontrast sagittal T1 spin echo and T2 fast spin echo with fat saturation, long-axis T1 spin echo and T2 fast spin echo with fat saturation, short-axis T1 spin echo and T2 fast spin echo with fat saturation through the forefoot. COMPARISON: [facility] [place], CR, XR TOE(S) RIGHT, 11/12/2021, 14:22. [facility] [place], CR, XR FOOT 3+ VIEWS RIGHT, 04/30/2021, 11:34. [facility] [place], CR, XR FOOT 3 VIEWS WEIGHT BEARING RIGHT, 03/24/2022, 9:58. FINDINGS: Image quality: Excellent. Bones and joints: Osseous edema is seen surrounding the 1st metatarsophalangeal joint extending from the 1st proximal phalangeal head to the proximal 1st metatarsal shaft. There is full-thickness cartilage loss in the 1st metatarsophalangeal joint as well as subchondral cystic changes and marginal osteophyte formation. There is a small 1st metatarsophalangeal joint effusion with multiple small ossifications inferior to the 1st metatarsal head that may represent intra-articular loose bodies. Mild edema is seen within the medial hallux sesamoid and to a lesser extent the lateral hallux sesamoid. Mild subchondral edema is seen at the 2nd and 3rd metatarsophalangeal joints. Mild degenerative changes are seen at the interphalangeal joints of the toes. There are moderate degenerative changes throughout the tarsometatarsal joints with subchondral cystic changes and edema. Degenerative changes are also seen at the navicular-lateral cuneiform articulation. Soft tissues: Mild nonspecific subcutaneous soft tissue edema is seen in the forefoot. The visualized plantar foot muscles demonstrate mild grade 2 fatty infiltration. Visualized flexor and extensor tendons appear intact, without tenosynovitis. The distal insertions of the peroneus brevis and longus tendons appear intact. The principal Lisfranc ligament appears intact. No soft tissue ganglion cysts or bursal fluid collections. Sagittal images demonstrate no evidence for plantar plate tears. IMPRESSION: 1. Severe degenerative changes at the first metatarsophalangeal joint with full thickness cartilage loss, subchondral cystic changes and edema, and marginal osteophytes. Osseous edema may be secondary to osteoarthrosis, but the severity of edema is greater than expected, and a superimposed nondepressed fracture or infectious or inflammatory process is not excluded including possibly septic arthritis. Recommend correlation with clinical findings and laboratory values, and possible joint aspiration if indicated. 2. Moderate degenerative changes throughout the midfoot including the tarsometatarsal joints and the navicular-lateral cuneiform articulation. 3. Nonspecific soft tissue edema throughout the dorsal forefoot. Dictated by: Riaz Dodson M.D. on 04/07/2022 at 14:13 Approved by: Riaz Dodson M.D. on 04/07/2022 at 14:30
== END ==
PROVIDERS: Referring Provider Podiatrist; Visit Provider Podiatrist
DX: M25.474 Effusion, right foot (principal)
CPT/HCPCS: 73718

== ENCOUNTER → 2022-05-29 11:03 | Outpatient (CLI) | payer MEDICARE, OTHER, SELFPAY | PROVIDERS: Family Provider Family Medicine; PCP Family Medicine; Referring Provider Family Medicine; Visit Provider Family Medicine | DX: G62.9 Polyneuropathy, unspecified (principal); M54.16 Radiculopathy, lumbar region | CPT/HCPCS: 95886; 95910 ==

== ENCOUNTER → 2022-07-01 13:44 | Outpatient (CLI) | payer MEDICARE, OTHER, SELFPAY ==
--- NOTE | 2022-07-01 | DI.ECHO.S_ITS ---
[facility]---------+ [facility] +---------+ : : [address] : : : [address] [place] : : : : [id number] : : : : Phone: [phone]---------+ Echocardiogram Report + + :Name: ADEEL LAGUNAS Study Date: 07/01/2022 Height: 68 in : :[facility] ReadingLocation: Weight: 173 lb : : Gender: Female BSA: 1.9 m2 : :: 1935 Age: 87 yrs BP: 123/75 mmHg: :Reason For Study: AORTIC VALVE REPLACEMENT, XENOGENIC HEART : :VALVE : :Ordering Physician: ADELAIDA, : :ALCON Performed By: Essence Singletary : :Referring: ALCON SON : + + Interpretation Summary Left ventricular systolic function remains normal with an estimated ejection fraction of 65 to 70% without any focal wall motion abnormality. Left ventricular size and wall thickness remain normal with a probable diastolic relaxation abnormality although filling pressures are challenging to assess with an elevated E/E' ratio but normal left atrial size yet this is unchanged from the previous exam. There has been no significant change since the previous study. The right ventricle appears normal and unchanged. Right ventricular systolic pressure is estimated at 26 mmHg with a CVP of 3 mmHg and is likely unchanged. Both atria are normal in size and have significantly decreased in size since the prior echo. The bioprosthetic aortic valve appears to be functioning normally with a peak velocity of 2.1 m/s and a mean gradient of 9 mmHg, compared to 2.3 m/s and 11 mmHg, respectively, previously. There is mild to moderate tricuspid regurgitation which is slightly more prominent and mild to moderate pulmonic valve that is unchanged since the previous exam. The ascending aorta remains borderline enlarged at 3.5 cm but is unchanged. Procedure: A two-dimensional transthoracic echocardiogram with color flow and Doppler was performed. The study quality was technically adequate. Comparison is made with the echocardiogram of 11/28/2020. The patient was in sinus rhythm with heart rates between 71-85 bpm during the exam. Left Ventricle: The left ventricle appears normal in size, wall thickness, and systolic function without any focal wall motion abnormalities. The ejection fraction is estimated to be 65-70%. Diastolic function could not be accurately assessed due to contradictory data. There has been no significant change since the previous study. Right Ventricle: The right ventricle is normal in size and function. This is unchanged compared to the previous study. Atria: Both atria are normal in size. Both atria have significantly decreased in size since the prior echo exam. There is no Doppler evidence for an interatrial shunt. Mitral Valve: There is moderate mitral annular calcification. The mitral valve leaflets appear mildly thickened, but open well. The mitral valve leaflets are mildly calcified. There is no mitral valve stenosis. The mitral valve mean gradient is 1.7 mmHg. There is trace mitral regurgitation. This is unchanged compared to the previous study. Aortic Valve: There is a bioprosthetic aortic valve. The prosthetic aortic valve is well-seated. The gradients through the prosthetic aortic valve are within the normal range for this type of valve. There is probable normal prosthetic aortic valve function. This is unchanged compared to the previous study. The peak aortic velocity is 2.1 m/sec. The aortic valve mean gradient is 9 mmHg. The calculated aortic valve area is 1.5 cm2. There is trace aortic regurgitation. Tricuspid Valve: The tricuspid valve leaflets are thin and pliable. There is mild to moderate tricuspid regurgitation. This is slightly more prominent compared to the previous study. The right ventricular systolic pressure is estimated to be at least 26 mmHg based on an estimated right atrial pressure of 3 mm Hg. This is unchanged compared to the previous study. Pulmonic Valve: The pulmonic valve is not well seen, but is grossly normal. There is mild to moderate pulmonic regurgitation. This is unchanged compared to the previous study. Great Vessels: The ascending aorta is at the upper limits of normal in size. This is unchanged compared to the previous study. The IVC is of normal diameter and collapses greater than 50% with a sniff. This suggests a low right atrial pressure of 3 mm Hg. Pericardium/ Pleura There is no pericardial effusion. There is no pleural effusion. MMode/2D Measurements & Calculations LVIDd: 4.3 cm LVOT diam: 2.0 cm LVIDs: 2.6 cm asc Aorta Diam: 3.5 cm FS: 39.9 % Ao Arch Diam (Prox Trans): 2.5 cm IVSd: 0.97 cm LVPWd: 0.97 cm LV zurita. diameter/BSA (cm/m^2): 2.3 LV sys. diameter/BSA (cm/m^2): 1.4 LA A2 area: 11.5 cm2 RA long axis: 5.0 cm LA A4 area: 17.8 cm2 RA area: 11.9 cm2 LA length (vol): 5.4 cm RA vol: 23.9 ml LA vol: 32.4 ml RA : 12.5 ml/m2 LA vol index: 16.9 ml/m2 IVC diam: 1.4 cm RVD1 (basal): 3.5 cm RVD2 (mid): 2.8 cm TAPSE: 1.9 cm Doppler Measurements & Calculations Ao V2 max: 210.3 cm/sec LVOT Max Dann: 97.6 cm/sec Ao V2 mean: 137.4 cm/sec LV V1 max P.8 mmHg Ao max P.6 mmHg LV V1 VTI: 18.3 cm Ao mean P.0 mmHg BRI(I,D): 1.3 cm2 Ao V2 VTI: 43.4 cm BRI(V,D): 1.5 cm2 sev ratio: 0.42 BRI indexed to BSA (cm^2/m^2): 0.69 MV E max dann: 103.9 cm/sec TR max dann: 238.8 cm/sec MV A max dann: 108.9 cm/sec TR max P.8 mmHg MV E/A: 0.95 PA V2 max: 92.3 cm/sec Med Peak E' Dann: 5.7 cm/sec PA V2 mean: 69.5 cm/sec E/E' med: 18.1 PA mean P.1 mmHg Lat Peak E' Dann: 4.5 cm/sec PA pr(Accel): 37.9 mmHg E/E' lat: 23.3 E/e' average: 20.7 MV dec time: 0.29 sec MVA(VTI): 1.4 cm2 MV V2 mean: 57.2 cm/sec SV(LVOT): 57.4 ml MV mean P.7 mmHg MV V2 VTI: 40.6 cm Reading Physician:09:29 AM
== END ==
PROVIDERS: Family Provider Family Medicine; PCP Family Medicine; Referring Provider Specialist; Visit Provider Specialist
DX: I08.1 Rheumatic disorders of both mitral and tricuspid valves (principal); Z95.3 Presence of xenogenic heart valve
CPT/HCPCS: 93306

== ENCOUNTER → 2022-07-03 07:32 | Outpatient (CLI) | payer MEDICARE, OTHER, SELFPAY ==
[2022-07-03 09:56] LABS: Alanine Aminotransferase 35 IU/L (<35); Albumin 4.1 g/dL (3.5-5.0); Albumin Globulin Ratio 1.5 (1.0-2.8); Alkaline Phosphatase 125 U/L (38-126); Aspartate Aminotransferase 44 IU/L (14-36); BUN Creatinine Ratio 10.3 (6-22); Bilirubin Total 0.5 mg/dL (0.2-1.3); Blood Urea Nitrogen 7 mg/dL (7-17); Calcium 8.9 mg/dL (8.4-10.2); Carbon Dioxide 28 mmol/L (22-32); Chloride 99 mmol/L (98-107); Estimated Glomerular Filt Rate > 60 mL/min (>60); Globulin 2.8 g/dL (1.7-4.1); Glucose 94 mg/dL (80-110); HEMOLYSIS < 15 (0-50); Magnesium 1.9 mg/dL (1.6-2.3); Potassium 4.5 mmol/L (3.4-5.1); Sodium 135 mmol/L (137-145); Total Protein 6.9 g/dL (6.3-8.2)
[2022-07-05 14:36] LABS: Cholesterol, Total 156 mg/dL (100-199); HDL-Cholesterol 74 mg/dL (>39); HDL-Particle (Total) 48.5 umol/L (>=30.5); LDL Particle 672 nmol/L (<1000); LDL Size 21.2 nm (>20.5); LDL-Cholsterol 64 mg/dL (0-99); LP-IR Score 40 (<=45); Small LDL- Particle 383 nmol/L (<=527); Triglycerides 98 mg/dL (0-149)
== END ==
PROVIDERS: Family Provider Family Medicine; PCP Family Medicine; Referring Provider Specialist; Visit Provider Specialist
DX: I10 Essential (primary) hypertension (principal); E78.2 Mixed hyperlipidemia
CPT/HCPCS: 36415; 80053; 80061; 83704; 83735

== ENCOUNTER → 2022-09-17 11:32 | Outpatient (CLI) | payer MEDICARE, OTHER, SELFPAY ==
--- NOTE | 2022-09-17 | DI.MRI.S_ITS ---
PROCEDURE: MR LUMBAR SPINE WO CON INDICATIONS: Radiculopathy, lumbar region TECHNIQUE: Noncontrast sagittal T1 spin echo and T2 fast echo, sagittal STIR, and T2 fast spin echo through the lumbar spine. In cases with scoliosis, additional coronal T2 fast spin echo may be performed. COMPARISON: [facility], MR, MR LUMBAR SPINE WO CON, 02/15/2018, 15:44. FINDINGS: Image quality: Excellent. Alignment and Curvature: There is retrolisthesis of L2 on L3, L3 on L4, L4 on L5. Previous kyphoplasty changes are present at L1, L2 and L3 with compression deformities, unchanged. Bone Marrow: Marrow is of normal overall signal. Mild reactive endplate changes are present at L1-2. No acute vertebral body compression fractures. Spinal Cord: Conus medullaris terminates at the L1-2 level. Visualized cord demonstrates normal signal and size. Paraspinous Soft Tissues: No paravertebral masses. Discs: Moderate to severe desiccation is present L4-5, mild to moderate throughout the remainder of the lumbar spine. T12-L1: Mild disc bulge with very minimal effacement of the anterior thecal sac. No foraminal narrowing. Facet and ligamentum flavum hypertrophy are present. No interval change. L1-L2: Minimal disc bulge with minimal left foraminal narrowing. And ligamentum flavum hypertrophy are present. No interval change. L2-L3: Mild disc bulge without spinal stenosis. Moderate left foraminal narrowing with facet and ligamentum flavum hypertrophy. No interval change. L3-L4: Minimal disc bulge with moderate left and mild right foraminal narrowing with facet and ligamentum flavum hypertrophy. No interval change. L4-L5: Mild disc bulge with mild spinal stenosis. Moderate bilateral foraminal narrowing, minimally progressive. Facet and ligamentum flavum hypertrophy are present. L5-S1: Mild disc bulge without spinal stenosis. Severe left and moderate to severe right foraminal narrowing with minimal interval progression. Slight compression of the exiting left L5 nerve root. Facet and ligamentum flavum hypertrophy are present. IMPRESSION: Multilevel degenerative changes. Multilevel foraminal narrowing most severe at L5-S1 with mild compression of the exiting left L5 nerve root predominantly secondary to facet arthropathy. Dictated by: Nicole Larios M.D. on 09/17/2022 at 16:21 Approved by: Nicole Larios M.D. on 09/17/2022 at 16:28
== END ==
PROVIDERS: Family Provider Family Medicine; PCP Family Medicine; Referring Provider Family Medicine; Visit Provider Family Medicine
DX: M47.26 Other spondylosis with radiculopathy, lumbar region (principal); M47.27 Other spondylosis with radiculopathy, lumbosacral region; M48.061 Spinal stenosis, lumbar region without neurogenic claudication; M48.07 Spinal stenosis, lumbosacral region
CPT/HCPCS: 72148

== ENCOUNTER → 2022-12-04 12:47 | Outpatient (CLI) | payer MEDICARE, OTHER, SELFPAY ==
--- NOTE | 2022-12-04 | DI.MG.S_ITS ---
BILATERAL DIGITAL SCREENING MAMMOGRAM 3D/2D WITH CAD: 12/04/2022 CLINICAL: Routine screening. Personal history of left breast cancer. Comparison is made to exams dated: 12/03/2021 mammogram, 11/28/2020 mammogram, 10/13/2019 mammogram, and 10/08/2018 mammogram - [facility]. There are scattered areas of fibroglandular density in both breasts (category b / 25%-50% glandular tissue). Current study was also evaluated with a Computer Aided Detection (CAD) system. There are stable benign calcifications in the left breast. There also are benign vascular calcifications in the right breast. Additionally, there are stable benign vascular calcifications in the left breast. Additionally, there also are benign post operative findings in the left breast. No significant masses, calcifications, or other findings are seen in either breast. There has been no significant interval change. IMPRESSION: BENIGN There is no mammographic evidence of malignancy. A 1 year screening mammogram is recommended. This exam was interpreted at Station ID: [id number]. NOTE: For mammograms, a report in lay terms will be sent to the patient. Approximately 15% of breast malignancies will not be visualized mammographically. In the management of a palpable breast mass, a negative mammogram must not discourage biopsy of a clinically suspicious lesion. Electronically Signed By: Leon chan/ethel:12/04/2022 14:48:56 letter sent: Normal Exam ACR BI-RADS Category 2: Benign Finding(s) 3342F
== END ==
PROVIDERS: Family Provider Family Medicine; PCP Family Medicine; Referring Provider Family Medicine; Visit Provider Family Medicine
DX: Z12.31 Encounter for screening mammogram for malignant neoplasm of breast (principal); Z85.3 Personal history of malignant neoplasm of breast
CPT/HCPCS: 77063; 77067

== ENCOUNTER → 2022-12-30 08:32 | Outpatient (CLI) | payer MEDICARE, OTHER, SELFPAY ==
[2022-12-30 10:04] LABS: Alanine Aminotransferase 25 IU/L (<35); Albumin 3.8 g/dL (3.5-5.0); Albumin Globulin Ratio 1.6 (1.0-2.8); Alkaline Phosphatase 85 U/L (38-126); Aspartate Aminotransferase 28 IU/L (14-36); BUN Creatinine Ratio 14.3 (6-22); Bilirubin Total 0.7 mg/dL (0.2-1.3); Blood Urea Nitrogen 9 mg/dL (7-17); Calcium 8.8 mg/dL (8.4-10.2); Carbon Dioxide 28 mmol/L (22-32); Chloride 102 mmol/L (98-107); Cholesterol 136 mg/dL (140-199); Estimated Glomerular Filt Rate > 60 mL/min (>60); Globulin 2.4 g/dL (1.7-4.1); Glucose 106 mg/dL (80-110); HDL Cholesterol 64 mg/dL (40-60); HEMOLYSIS < 15 (0-50); LDL Cholesterol Calculated 53 mg/dL (<100); Magnesium 1.9 mg/dL (1.6-2.3); Potassium 4.2 mmol/L (3.4-5.1); Sodium 135 mmol/L (137-145); Total Protein 6.2 g/dL (6.3-8.2); Triglycerides 93 mg/dL (35-150)
== END ==
PROVIDERS: Family Provider Family Medicine; PCP Family Medicine; Referring Provider Specialist; Visit Provider Specialist
DX: I10 Essential (primary) hypertension (principal); E78.2 Mixed hyperlipidemia
CPT/HCPCS: 36415; 80053; 80061; 83735

== ENCOUNTER → 2023-01-09 12:03 | Outpatient (CLI) | payer MEDICARE, OTHER, SELFPAY ==
--- NOTE | 2023-01-09 | DI.MRI.S_ITS ---
PROCEDURE: MR LUMBAR SPINE WO CON INDICATIONS: Radiculopathy, lumbosacral region TECHNIQUE: Noncontrast sagittal T1 spin echo and T2 fast echo, sagittal STIR, and T2 fast spin echo through the lumbar spine. In cases with scoliosis, additional coronal T2 fast spin echo may be performed. COMPARISON: [facility], , MR LUMBAR SPINE WO CON, 09/17/2022, 11:47. FINDINGS: Image quality: Excellent. Alignment and Curvature: Trace retrolisthesis of L2 on L3, L3 on L4, L4 on L5. Kyphoplasty changes are present at L1, L2 and L3, unchanged. Bone Marrow: Marrow is of normal overall signal. Mild reactive endplate changes are present at L1-2. Compression deformities most notable at L1 and L3 are stable.No acute vertebral body compression fractures. Spinal Cord: Conus medullaris terminates at the L2 level. Visualized cord demonstrates normal signal and size. Paraspinous Soft Tissues: No paravertebral masses. Discs: Overall axvc-yi-boqstkoa disc desiccation is present most severe at L4-5. T12-L1: Mild disc bulge with effacement of the anterior thecal sac and no foraminal narrowing. No interval change. L1-L2: Mild disc bulge without spinal stenosis. Minimal left foraminal narrowing. Facet and ligamentum flavum hypertrophy are present. No interval change. L2-L3: Mild disc bulge with minimal canal narrowing, unchanged. Moderate left foraminal narrowing with facet and ligamentum flavum hypertrophy. L3-L4: Mild disc bulge without spinal stenosis. Moderate left and mild right foraminal narrowing with facet and ligamentum flavum hypertrophy. No interval change. L4-L5: Mild disc bulge with mild spinal stenosis. Moderate bilateral foraminal narrowing with facet and ligamentum flavum hypertrophy. No interval change. L5-S1: Mild disc bulge without spinal stenosis. Moderate to severe right and severe left foraminal narrowing with compression of the exiting L5 nerve roots bilaterally, left greater than right. Facet and ligamentum flavum hypertrophy are present. IMPRESSION: Multilevel degenerative changes stable compared to prior exam. Kyphoplasty changes are present L1, L2 on L3. No new compression deformities. Foraminal narrowing remains most severe at L5-S1 secondary to facet/ligamentum flavum arthropathy. Dictated by: Nicole Larios M.D. on 01/09/2023 at 16:10 Approved by: Nicole Larios M.D. on 01/09/2023 at 16:14
== END ==
PROVIDERS: Family Provider Family Medicine; PCP Family Medicine; Referring Provider Physical Medicine & Rehabilitation Pain Medicine; Visit Provider Physical Medicine & Rehabilitation Pain Medicine
DX: M54.17 Radiculopathy, lumbosacral region (principal)
CPT/HCPCS: 72148

== ENCOUNTER → 2023-01-26 15:43 | Outpatient (CLI) | payer MEDICARE, OTHER, SELFPAY ==
--- NOTE | 2023-01-26 15:45 | DI.MRI.S_ITS ---
PROCEDURE: MR CERVICAL SPINE WO CON INDICATIONS: Spinal stenosis, cervical region TECHNIQUE: Noncontrast sagittal T1 spin echo and T2 fast spin echo, sagittal STIR, foraminal oblique sagittal T2 fast spin echo, and axial gradient echo or T2 fast spin echo through the cervical spine. COMPARISON: None. FINDINGS: Image quality: Excellent. Alignment and Curvature: There is trace retrolisthesis of C2 on C3, C3 on C4, C5 on C6, trace anterolisthesis of C6 on C7. Bone Marrow: Marrow demonstrates normal overall signal. Minimal reactive endplate changes are present at C4-5 and C6-7. Spinal Cord: Visualized spinal cord has normal size and signal. No cerebellar tonsillar herniation. Paraspinous Soft Tissues: No paravertebral masses. Prevertebral soft tissues are normal in thickness. Discs: Multilevel overall moderate disc desiccation most severe at C5-6 and C6-7. C2-C3: Mild disc bulge with posterior central protrusion. There is indentation of the anterior thecal sac. No foraminal narrowing. C3-C4: Mild disc bulge with superimposed posterior central protrusion. There is indentation of the anterior thecal sac. Mild bilateral foraminal narrowing with uncovertebral hypertrophy. C4-C5: Mild disc bulge with pcpc-ch-kvvczqvt spinal stenosis. Mild to moderate bilateral foraminal narrowing with uncovertebral hypertrophy. C5-C6: Mild disc bulge with kvae-yc-ghtlpfum spinal stenosis. Severe left and moderate right foraminal narrowing with uncovertebral hypertrophy. C6-C7: Mild disc bulge with minimal spinal stenosis. Moderate to severe bilateral foraminal narrowing, left greater than right with uncovertebral hypertrophy. C7-T1: No disc bulge or spinal stenosis. Mild bilateral foraminal narrowing with uncovertebral hypertrophy. IMPRESSION: Multilevel disc bulges. Multilevel spinal stenosis most notable at C4-5 and C5-6 secondary to disc bulge/protrusion. Multilevel foraminal narrowing most severe at C5-6 secondary to uncovertebral arthropathy. Dictated by: Nicole Larios M.D. on 01/27/2023 at 9:42 Approved by: Nicole Larios M.D. on 01/27/2023 at 9:45
== END ==
PROVIDERS: Family Provider Family Medicine; PCP Family Medicine; Referring Provider Physical Medicine & Rehabilitation Pain Medicine; Visit Provider Physical Medicine & Rehabilitation Pain Medicine
DX: M48.02 Spinal stenosis, cervical region (principal); M50.221 Other cervical disc displacement at C4-C5 level; M47.812 Spondylosis without myelopathy or radiculopathy, cervical region
CPT/HCPCS: 72141

== ENCOUNTER → 2023-03-20 09:43 | Outpatient (CLI) | payer MEDICARE, OTHER, SELFPAY ==
--- NOTE | 2023-03-20 | DI.MG.S_ITS ---
UNILATERAL LEFT DIGITAL DIAGNOSTIC MAMMOGRAM 3D/2D: 03/20/2023 CLINICAL: Palpable left axilla lump. Comparison is made to exams dated: 12/04/2022 mammogram, 12/03/2021 mammogram, and 11/28/2020 mammogram - [facility]. There are scattered areas of fibroglandular density in the left breast (category b / 25%-50% glandular tissue). The left breast has post-operative findings. No significant masses, calcifications, or other findings are seen in the breast. IMPRESSION: INCOMPLETE: NEEDS ADDITIONAL IMAGING EVALUATION There is no mammographic abnormality seen in the left axilla to correspond with the palpable abnormality in the left axilla, however, targeted ultrasound of the left breast is recommended and will be performed immediately following this exam. This exam was interpreted at Station ID: [id number]. NOTE: For mammograms, a report in lay terms will be sent to the patient. Approximately 15% of breast malignancies will not be visualized mammographically. In the management of a palpable breast mass, a negative mammogram must not discourage biopsy of a clinically suspicious lesion. Electronically Signed By: Lucila Lopez M.D. lk/:03/20/2023 10:57:34 ACR BI-RADS Category 0: Incomplete 3340F
--- NOTE | 2023-03-20 | DI.US.S_ITS ---
LIMITED ULTRASOUND OF LEFT BREAST AND AXILLA: 03/20/2023 CLINICAL: Palpable left axilla lump. Comparison is made to exams dated: 12/04/2022 mammogram, 12/03/2021 mammogram, 12/14/2020 ultrasound, 11/28/2020 mammogram, 03/14/2020 ultrasound, and 03/14/2020 mammogram - [facility]. Color flow ultrasound of the left breast axilla was performed on the areas of interest. Linn scale images of the real-time examination were reviewed. There are 2 benign appearing lymph nodes in the left axillary tail. These lymph nodes display fatty hilum. These correlate as palpated. IMPRESSION: BENIGN There is no sonographic evidence of malignancy. The left axillary lymph nodes are benign. Return to annual mammogram screening schedule is recommended. Future imaging is recommended as follows: 12/05/2023 screening mammogram. This exam was interpreted at Station ID: [id number]. Electronically Signed By: Lucila stephenson/:03/20/2023 14:39:25 letter sent: Normal Exam Ultrasound BI-RADS: 2 Benign
== END ==
PROVIDERS: Family Provider Family Medicine; PCP Family Medicine; Referring Provider Registered Nurse; Visit Provider Registered Nurse
DX: N63.32 Unspecified lump in axillary tail of the left breast (principal); R92.8 Other abnormal and inconclusive findings on diagnostic imaging of breast
CPT/HCPCS: 76882; 77065; G0279

== ENCOUNTER → 2023-08-26 09:15 | Outpatient (CLI) | payer MEDICARE, OTHER, SELFPAY ==
[2023-08-26 10:24] LABS: Add Manual Diff / Slide Review NO; Basophils Absolute Auto 0 /uL (0-100); Basophils Percent Auto 0.3 % (0-2); Eosinophils Absolute Auto 400 /uL (0-450); Eosinophils Percent Auto 7.1 % (2-4); Hematocrit 37.1 % (36-46); Hemoglobin 12.8 g/dL (12.0-16.0); Lymphocytes Absolute Auto 1000 /uL (1100-4500); Lymphocytes Percent Auto 19.2 % (25-40); Mean Corpuscular HGB Conc 34.6 % (30-36); Mean Corpuscular Hemoglobin 33.1 PG (26-34); Mean Corpuscular Volume 95.7 fL (80-100); Monocytes Absolute Auto 600 /uL (0-900); Monocytes Percent Auto 10.3 % (3-14); Neutrophils Absolute Auto 3400 /uL (1500-7000); Neutrophils Percent Auto 63.1 % (50-75); Platelet Count 169 X10^3/uL (150-400); Red Blood Cell Count 3.88 X10^6/uL (4.0-5.2); Red Cell Distribution Width 13.3 % (11.6-14.8); White Blood Cell Count 5.4 X10^3/uL (4.5-11.0)
[2023-08-26 10:39] LABS: Alanine Aminotransferase 29 IU/L (<35); Albumin 3.9 g/dL (3.5-5.0); Albumin Globulin Ratio 1.4 (1.0-2.8); Alkaline Phosphatase 83 U/L (38-126); Aspartate Aminotransferase 36 IU/L (14-36); BUN Creatinine Ratio 18.3 (6-22); Bilirubin Total 0.8 mg/dL (0.2-1.3); Blood Urea Nitrogen 11 mg/dL (7-17); Calcium 9.1 mg/dL (8.4-10.2); Carbon Dioxide 29 mmol/L (22-32); Chloride 98 mmol/L (98-107); Cholesterol 129 mg/dL (140-199); Estimated Glomerular Filt Rate > 60 mL/min (>60); Globulin 2.7 g/dL (1.7-4.1); Glucose 107 mg/dL (80-110); HDL Cholesterol 64 mg/dL (40-60); HEMOLYSIS < 15 (0-50); LDL Cholesterol Calculated 52 mg/dL (<100); Magnesium 2.1 mg/dL (1.6-2.3); Potassium 4.2 mmol/L (3.4-5.1); Sodium 132 mmol/L (137-145); Total Protein 6.6 g/dL (6.3-8.2); Triglycerides 63 mg/dL (35-150)
[2023-08-26 11:25] LABS: Vitamin B12 522 pg/mL (239-931)
[2023-08-30 06:09] LABS: Cholesterol, Total 133 mg/dL (100-199); HDL-Cholesterol 70 mg/dL (>39); HDL-Particle (Total) 38.3 umol/L (>=30.5); Historical Reading Comment: (.); LDL Particle 497 nmol/L (<1000); LDL Size 20.8 nm (>20.5); LDL-Cholsterol 50 mg/dL (0-99); LP-IR Score 26 (<=45); Small LDL- Particle 142 nmol/L (<=527); Triglycerides 62 mg/dL (0-149)
== END ==
PROVIDERS: Family Provider Family Medicine; PCP Family Medicine; Referring Provider Specialist; Visit Provider Specialist
DX: I10 Essential (primary) hypertension (principal); E78.2 Mixed hyperlipidemia; E53.8 Deficiency of other specified B group vitamins; M25.551 Pain in right hip; I35.0 Nonrheumatic aortic (valve) stenosis; Z13.0 Encounter for screening for diseases of the blood and blood-forming organs and certain disorders involving the immune mechanism; E78.00 Pure hypercholesterolemia, unspecified
CPT/HCPCS: 36415; 80053; 80061; 82607; 83704; 83735; 84443; 85025

== ENCOUNTER → 2023-09-22 07:57 | Outpatient (CLI) | payer MEDICARE, OTHER, SELFPAY ==
--- NOTE | 2023-09-22 08:01 | DI.ECHO.S_ITS ---
[facility] +---------+ : : [address] [place] : : : : [id number] : : : : Phone: [phone]---------+ Echocardiogram Report + + :Name: ADEEL LAGUNAS Study Date: 09/22/2023 Height: 68 in : :[facility] ReadingLocation: Weight: 173 lb : : Gender: Female BSA: 1.9 m2 : :: 1935 Age: 88 yrs BP: 118/66 mmHg: :Reason For Study: S/P TAVR : :Ordering Physician: ADELAIDA, : :ALCON Performed By: Essence Singletary : :Referring: ALCON SON : + + Interpretation Summary Left ventricular systolic function remains borderline hyperdynamic with an estimated ejection fraction around 70 to 75% without any focal wall motion abnormality. Left ventricular volumes are borderline small but unchanged from the previous exam with normal wall thickness. While diastolic function is challenging to assess, there is a suggestion of a pseudonormalized pattern of diastolic filling, possibly with elevated filling pressures, and possibly slightly higher compared to the previous study. The right ventricle is not well-visualized but grossly appears normal and grossly unchanged from the previous study. Right ventricular systolic pressure is estimated at 31 mmHg with a CVP of 3 mmHg, and is possibly slightly higher compared to the previous exam. Both atria are within normal limits in size but slightly larger compared to the previous study. There is mild tricuspid regurgitation and mild to moderate pulmonic valve regurgitation and both grossly appear unchanged from the previous study. The bioprosthetic aortic valve appears to be functioning normally with a peak velocity of 2.2 m/s and mean gradient of 11 mmHg, compared to 2.1 m/s and 9 mmHg, respectively, previously. The ascending aorta remains borderline enlarged but unchanged. Procedure: A two-dimensional transthoracic echocardiogram with color flow and Doppler was performed. The study quality was technically adequate. Comparison is made with the echocardiogram of 07/01/2022. The patient was in sinus rhythm with heart rates between 56-89 bpm during the exam. Left Ventricle: The left ventricular cavity is small. The estimated left ventricular end diastolic volume is 55 mL compared to the previous 53 ml. There is normal left ventricular wall thickness. The left ventricle is borderline hyperdynamic. The ejection fraction is estimated to be 70-75%. There are no focal wall motion abnormalities. This is unchanged compared to the previous study. Diastolic function could not be accurately assessed due to contradictory data. Diastolic parameters suggest a pseudonormalization pattern, consistent with probable elevated filling pressures. This is possibly slightly higher compared to the previous study. Right Ventricle: The right ventricle is not well visualized. The right ventricle grossly appears normal in size with probable normal systolic function. This is unchanged compared to the previous study. Atria: Both atria are normal in size. Both atria have mildly increased in size since the prior echo exam. There is no Doppler evidence for an interatrial shunt. Mitral Valve: There is moderate mitral annular calcification. The mitral valve leaflets appear mildly thickened, but open well. The mitral valve leaflets are mildly calcified. No significant mitral valve stenosis. There is trace mitral regurgitation. This is unchanged compared to the previous study. Aortic Valve: There is a bioprosthetic aortic valve. The prosthetic aortic valve is well-seated. There is probable normal prosthetic aortic valve function. The peak aortic velocity is 2.2 m/sec. The aortic valve mean gradient is 11 mmHg. No aortic regurgitation is present. Tricuspid Valve: The tricuspid valve leaflets are thin and pliable. There is mild tricuspid regurgitation. This is unchanged compared to the previous study. The right ventricular systolic pressure is estimated to be at least 31 mmHg based on an estimated right atrial pressure of 3 mm Hg. This is possibly slightly higher compared to the previous study. Pulmonic Valve: The pulmonic valve leaflets are thin and pliable; valve motion is normal. There is mild to moderate pulmonic regurgitation. This is unchanged compared to the previous study. Great Vessels: The aortic root is not well visualized but is probably normal size. The ascending aorta is at the upper limits of normal in size. This is unchanged compared to the previous study. The IVC is of normal diameter and collapses greater than 50% with a sniff. This suggests a low right atrial pressure of 3 mm Hg. Pericardium/ Pleura There is no pericardial effusion. There is no pleural effusion. MMode/2D Measurements & Calculations LVIDd: 3.9 cm LVOT diam: 2.0 cm LVIDs: 2.5 cm asc Aorta Diam: 3.4 cm FS: 35.0 % Ao Arch Diam (Prox Trans): 2.6 cm EPSS: 0.68 cm IVSd: 0.79 cm LVPWd: 0.87 cm LV zurita. diameter/BSA (cm/m^2): 2.0 LV sys. diameter/BSA (cm/m^2): 1.3 LA A2 area: 14.5 cm2 RA long axis: 4.9 cm LA A4 area: 21.8 cm2 RA area: 18.0 cm2 LA length (vol): 5.5 cm RA vol: 56.1 ml LA vol: 49.1 ml RA : 29.2 ml/m2 LA vol index: 25.5 ml/m2 IVC diam: 1.6 cm RVD1 (basal): 3.9 cm TAPSE: 2.0 cm Doppler Measurements & Calculations Ao V2 max: 220.0 cm/sec LVOT Max Dann: 95.4 cm/sec Ao V2 mean: 155.1 cm/sec LV V1 max P.6 mmHg Ao max P.4 mmHg LV V1 VTI: 23.4 cm Ao mean P.6 mmHg BRI(I,D): 1.6 cm2 Ao V2 VTI: 45.5 cm BRI(V,D): 1.4 cm2 sev ratio: 0.52 BRI indexed to BSA (cm^2/m^2): 0.86 MV E max dann: 123.0 cm/sec TR max dann: 263.8 cm/sec MV A max dann: 88.2 cm/sec TR max P.8 mmHg MV E/A: 1.4 PA V2 max: 102.4 cm/sec Med Peak E' Dann: 5.6 cm/sec PA V2 mean: 74.3 cm/sec E/E' med: 22.0 PA mean P.4 mmHg Lat Peak E' Dann: 4.3 cm/sec PA pr(Accel): 44.7 mmHg E/E' lat: 28.6 E/e' average: 25.3 MV dec time: 0.23 sec SV(LVOT): 74.9 ml Reading Physician:09:09 AM
== END ==
LOC: ECHO 07:59
PROVIDERS: Family Provider Family Medicine; PCP Family Medicine; Referring Provider Specialist; Visit Provider Specialist
DX: I08.1 Rheumatic disorders of both mitral and tricuspid valves (principal); Z95.3 Presence of xenogenic heart valve
CPT/HCPCS: 93306

== ENCOUNTER → 2023-09-22 08:01 | Outpatient (CLI) | payer MEDICARE, OTHER, SELFPAY ==
--- NOTE | 2023-09-22 08:03 | DI.RAD.S_ITS ---
PROCEDURE: XR HIP W PEL IF DONE RT 2V INDICATIONS: HIP PAIN TECHNIQUE: AP pelvis with lateral view(s) of the right hip(s). COMPARISON: [facility], , XR HIP W PEL IF DONE LT 2V, 12/22/2019, 14:45. FINDINGS: Bones: There is a subacute fracture of the greater trochanter of the right hip. No other fractures or dislocations noted. Mild right hip degenerative change. Mild to moderate left hip degenerative change. Soft tissues: The visualized bowel gas pattern is normal. No suspicious soft tissue calcifications. Peripheral vascular disease with dense iliac and aortic calcifications. IMPRESSION: 1. Subacute nondisplaced right hip greater trochanteric fracture. 2. Mild right hip degenerative change, mild to moderate left hip degenerative change. 3. Peripheral vascular disease. Dictated by: Kaz Redman M.D. on 09/22/2023 at 14:14 Approved by: Kaz Redman M.D. on 09/22/2023 at 14:15
== END ==
LOC: RAD 08:02
PROVIDERS: Family Provider Family Medicine; PCP Family Medicine; Referring Provider Family Medicine; Visit Provider Family Medicine
DX: S72.114A Nondisplaced fracture of greater trochanter of right femur, initial encounter for closed fracture (principal); M25.551 Pain in right hip; I08.1 Rheumatic disorders of both mitral and tricuspid valves; I73.9 Peripheral vascular disease, unspecified; X58.XXXA Exposure to other specified factors, initial encounter; Z95.3 Presence of xenogenic heart valve
CPT/HCPCS: 73502; 93306

== ENCOUNTER → 2023-09-30 12:27 | Outpatient (CLI) | payer MEDICARE, OTHER, SELFPAY ==
--- NOTE | 2023-09-30 | DI.RAD.S_ITS ---
PROCEDURE: XR KNEE RT 3V INDICATIONS: RIGHT KNEE PAIN TECHNIQUE: 3 views of the knee were acquired. COMPARISON: [facility], KNEE SERIES RT, 11/14/2014, 10:02. [facility], CR, KNEE 3V RIGHT, 05/25/2014, 10:07. FINDINGS: Bones: There are postsurgical changes related to total knee arthroplasty. The knee prosthesis appears intact. No fractures or dislocations. No suspicious bony lesions. Soft tissues: Ijtxp-jq-jlitevmi joint effusion. Moderate atherosclerotic calcifications. IMPRESSION: 1. Total knee arthroplasty with intact prosthesis. 2. Koelo-wx-chqmheeo knee joint effusion. Dictated by: Maurice Velasco M.D. on 09/30/2023 at 16:49 Approved by: Maurice Velasco M.D. on 09/30/2023 at 16:54
== END ==
PROVIDERS: Family Provider Family Medicine; PCP Family Medicine; Referring Provider Family Medicine; Visit Provider Family Medicine
DX: M25.561 Pain in right knee (principal); M25.461 Effusion, right knee; Z96.651 Presence of right artificial knee joint
CPT/HCPCS: 73562

== ENCOUNTER → 2023-10-03 08:53 | Outpatient (CLI) | payer MEDICARE, OTHER, SELFPAY ==
--- NOTE | 2023-10-03 | DI.MRI.S_ITS ---
PROCEDURE: MR HIP RT WO CON INDICATIONS: Pain in right hip TECHNIQUE: Noncontrast coronal T1 spin echo and STIR through the bony pelvis. Coronal and axial T2 fast spin echo with fat saturation, sagittal T1 spin echo, and oblique axial T2 fast spin echo with fat saturation through the hip. COMPARISON: [facility], CR, XR HIP W PEL IF DONE RT 2V, 09/22/2023, 8:08. FINDINGS: Image quality: Excellent. Bones and joints: Bone marrow of the pelvic ring and proximal femurs show normal signal throughout. No intraosseous lesions or fractures. No avascular necrosis of the femoral head. Multilevel degenerative disc disease and facet hypertrophy are seen in the included lumbar spine. Mild degenerative changes are seen in the pubic symphysis. Tendons and ligaments: There is high-grade partial tearing of the distal gluteus medius and minimus tendons at their insertion onto the right greater trochanter with moderate trochanteric and small subgluteal bursal effusions. The proximal iliotibial band appears intact. The iliopsoas tendon appears intact, without adjacent bursal fluid collections. There is partial tearing of the proximal hamstring tendon at the origin superimposed on chronic tendinosis. The tendons for the direct and indirect heads of the rectus femoris muscle appear intact. Labrum and cartilage: Chronic nondisplaced tearing is seen at the anterior superior labrum. There is mild partial-thickness cartilage irregularity in the right hip with subchondral cystic changes and marginal osteophytes. A small right hip effusion is present. Soft tissues: Edema is seen within the proximal portion of the vastus lateralis muscle. Quadratus femoris muscle demonstrates no internal edema to suggest ischiofemoral impingement. The proximal sciatic neurovascular bundle appears normal adjacent to the hamstring tendons. Pelvic soft tissues demonstrate no acute abnormality. IMPRESSION: 1. High-grade partial tearing of the distal right gluteus medius and minimus tendons at their insertions onto the greater trochanter with trochanteric and subgluteal bursal effusions. 2. Mild osseous edema within the nearby proximal vastus lateralis muscle is compatible with a low-grade strain. 3. Partial tearing of the proximal right hamstring tendon at the origin superimposed on chronic tendinosis. 4. Chronic nondisplaced tearing of the anterior superior labrum. Mild right hip osteoarthrosis. 5. Multilevel degenerative changes are seen in the included lumbar spine. 1. Approved by: Riaz Dodson M.D. on 10/05/2023 at 13:50
== END ==
LOC: MRI 08:54
PROVIDERS: Family Provider Family Medicine; PCP Family Medicine; Referring Provider Family Medicine; Visit Provider Family Medicine
DX: S76.011A Strain of muscle, fascia and tendon of right hip, initial encounter (principal); S76.811A Strain of other specified muscles, fascia and tendons at thigh level, right thigh, initial encounter; S73.191A Other sprain of right hip, initial encounter; M16.11 Unilateral primary osteoarthritis, right hip; M47.816 Spondylosis without myelopathy or radiculopathy, lumbar region; M25.551 Pain in right hip
CPT/HCPCS: 73721

== ENCOUNTER → 2023-10-05 07:32 | Outpatient (CLI) | payer MEDICARE, OTHER, SELFPAY ==
[2023-10-05 08:16] LABS: COVID-19 CEPHEID 4-PLEX PCR Negative (Negative); Influenza A - CEPHEID Flu A NEGATIVE (NEGATIVE); Influenza B - CEPHEID Flu B NEGATIVE (NEGATIVE); Respiratory Syncytial Virus Negative (Negative)
== END ==
PROVIDERS: Family Provider Family Medicine; PCP Family Medicine; Visit Provider Physician Assistant Surgical
DX: R05.1 Acute cough (principal)
CPT/HCPCS: 0241U

== ENCOUNTER → 2023-10-06 15:23 | Outpatient (CLI) | payer MEDICARE, OTHER, SELFPAY ==
--- NOTE | 2023-10-06 | DI.RAD.S_ITS ---
PROCEDURE: XR CHEST 2V INDICATIONS: pneumonia, acute cough TECHNIQUE: 2 views of the chest were acquired. COMPARISON: [facility], CR, XR CHEST 2V, 12/11/2020, 15:03. FINDINGS: Surgical changes and devices: None. Lungs and pleura: Lungs are clear. No pleural effusions or pneumothorax. Mediastinum: Mediastinal contours are normal. Heart size is normal. Bones and chest wall: No suspicious bony abnormalities. Soft tissues appear unremarkable. IMPRESSION: No acute cardiopulmonary abnormality is seen. Dictated by: Nicole Larios M.D. on 10/06/2023 at 17:56 Approved by: Nicole Larios M.D. on 10/06/2023 at 17:56
== END ==
LOC: RAD 15:24
PROVIDERS: Family Provider Family Medicine; PCP Family Medicine; Referring Provider Registered Nurse; Visit Provider Registered Nurse
DX: J18.9 Pneumonia, unspecified organism (principal); R05.1 Acute cough
CPT/HCPCS: 0241U; 71046

== ENCOUNTER → 2023-10-06 16:17 | Outpatient (ROUT) | payer MEDICARE, OTHER, SELFPAY ==
[2023-10-06 18:01] LABS: Influenza A - CEPHEID Flu A NEGATIVE (NEGATIVE); Influenza B - CEPHEID Flu B NEGATIVE (NEGATIVE); Respiratory Syncytial Virus Negative (Negative)
[2023-10-06 18:07] LABS: COVID-19 CEPHEID 4-PLEX PCR Negative (Negative)
== END ==
PROVIDERS: Family Provider Family Medicine; PCP Family Medicine; Visit Provider Registered Nurse
DX: R05.1 Acute cough (principal)
CPT/HCPCS: 0241U

== ENCOUNTER → 2023-11-19 09:32 | Outpatient (CLI) | payer MEDICARE, OTHER, SELFPAY ==
[2023-11-19 11:40] LABS: Clostridium Difficile Tox PCR Negative for C. diff (Negative)
[2023-11-24 21:07] LABS: Calprotectin, Stool 64 ug/g (0-120)
== END ==
PROVIDERS: Family Provider Family Medicine; PCP Family Medicine; Referring Provider Family Medicine; Visit Provider Family Medicine
DX: R19.7 Diarrhea, unspecified (principal)
CPT/HCPCS: 83993; 87493

== ENCOUNTER 2023-11-22 12:33 | Emergency (ER) | payer MEDICARE, OTHER, SELFPAY ==
[2023-11-22 12:47] VITALS: BP 151/82; PULSE 75; RESP 17; TEMP 36.1; O2SAT 95; BMI 25.5
[2023-11-22 13:17] LABS: Add Manual Diff / Slide Review NO; Basophils Absolute Auto 0 /uL (0-100); Basophils Percent Auto 0.4 % (0-2); Eosinophils Absolute Auto 500 /uL (0-450); Eosinophils Percent Auto 6.5 % (2-4); Hematocrit 38.3 % (36-46); Hemoglobin 13.2 g/dL (12.0-16.0); Lymphocytes Absolute Auto 900 /uL (1100-4500); Lymphocytes Percent Auto 12.8 % (25-40); Mean Corpuscular HGB Conc 34.5 % (30-36); Mean Corpuscular Hemoglobin 32.1 PG (26-34); Mean Corpuscular Volume 93.3 fL (80-100); Monocytes Absolute Auto 700 /uL (0-900); Monocytes Percent Auto 9.4 % (3-14); Neutrophils Absolute Auto 5200 /uL (1500-7000); Neutrophils Percent Auto 70.9 % (50-75); Platelet Count 189 X10^3/uL (150-400); Red Blood Cell Count 4.11 X10^6/uL (4.0-5.2); Red Cell Distribution Width 13.6 % (11.6-14.8); White Blood Cell Count 7.3 X10^3/uL (4.5-11.0)
[2023-11-22 13:27] LABS: Alanine Aminotransferase 34 IU/L (<35); Albumin 3.7 g/dL (3.5-5.0); Albumin Globulin Ratio 1.3 (1.0-2.8); Alkaline Phosphatase 72 U/L (38-126); Aspartate Aminotransferase 39 IU/L (14-36); BUN Creatinine Ratio 10.3 (6-22); Bilirubin Total 0.6 mg/dL (0.2-1.3); Blood Urea Nitrogen 6 mg/dL (7-17); Calcium 8.9 mg/dL (8.4-10.2); Carbon Dioxide 32 mmol/L (22-32); Chloride 101 mmol/L (98-107); Estimated Glomerular Filt Rate > 60 mL/min (>60); Globulin 2.8 g/dL (1.7-4.1); Glucose 100 mg/dL (80-110); HEMOLYSIS < 15 (0-50); Lipase 36 U/L (23-300); Potassium 3.5 mmol/L (3.4-5.1); Sodium 135 mmol/L (137-145); Total Protein 6.5 g/dL (6.3-8.2)
--- NOTE | 2023-11-22 14:24 | ED_ITS ---
HPI - Abdominal Pain General Chief Complaint: Abdominal Pain Stated Complaint: Abd Pain Time Seen by Provider: 11/22/23 14:20 Source: patient Mode of arrival: Ambulatory Limitations: no limitations History of Present Illness HPI narrative: This is an 88-year-old female with history of prior breast cancer treated, hypertension, dyslipidemia, hypothyroidism on aspirin 81 mg daily with complaint of lower abdominal pain that is sometimes throughout the abdomen for the past week. Patient states it tends to localize in the lower suprapubic region but can be spread throughout. She sort of feels her stool moving through. She denies any back or flank pain. No rectal pain. She has been having diarrhea for about a month without any resolution. She was on antibiotics for respiratory infection and then followed by antibiotics for an infection or hand from being poked with a elvis thorn. Patient denies any fevers chills, no cold cough congestion. Denies any black or bloody stools. No urinary symptoms. No swelling in extremities. Had not had similar symptoms before this. Patient has seen her primary care physician had testing for GC diff which she was told was negative. Related Data Home Medications Medication Instructions Recorded Confirmed amitriptyline 25 mg tablet 25 mg PO DAILY 07/07/18 10/05/23 aspirin 81 mg tablet,delayed 81 mg PO DAILY 07/07/18 10/05/23 release atorvastatin 80 mg tablet 80 mg PO DAILY 07/07/18 10/05/23 carvedilol 12.5 mg tablet 12.5 mg PO SEEINSTR 07/07/18 10/05/23 magnesium oxide 500 mg capsule 500 mg PO DAILY 07/07/18 10/05/23 levothyroxine 50 mcg tablet 50 mcg PO DAILY 10/05/23 10/05/23 Previous Rx's Medication Instructions Recorded benzonatate 200 mg capsule 200 mg PO BID PRN cough #28 caps 10/05/23 ipratropium bromide 21 mcg (0.03 2 spray intranasal BID PRN allergy 10/05/23 %) nasal spray symptoms #30 mL prednisone 10 mg tablets in a dose See Rx Instructions PO .COMPLEX 11/22/23 pack #15 ea tramadol 50 mg tablet 50 mg PO Q6H PRN pain #10 tabs 11/22/23 Allergies Allergy/AdvReac Type Severity Reaction Status Date / Time lisinopril Allergy Severe Angioedema/ Verified 11/22/23 12:47 Anaphylaxis benazepril [From Lotensin] Allergy Intermediate kidney Verified 11/22/23 12:47 failure morphine Allergy Intermediate VOMITING, Verified 11/22/23 12:47 HIVES metoprolol Allergy Unknown KIDNEY Verified 11/22/23 12:47 FAILURE simvastatin Allergy Pt does Verified 11/22/23 12:47 not remember reaction meperidine AdvReac Mild NAUSEA Verified 11/22/23 12:47 Review of Systems Review of Systems ROS Unobtainable: All systems reviewed & are unremarkable except as noted in HPI and below Patient History Medical History SVT (supraventricular tachycardia) Palpitations RBBB (right bundle branch block) Dyspnea Compression fracture of L2 (10/2011) Atypical chest pain Unstable angina Osteoporosis Osteoarthritis Hypothyroid Hx of acute renal failure Hepatitis A Fibromyalgia HLD (hyperlipidemia) CAD (coronary artery disease) Cellulitis Skin abrasion Breast cancer Hypertension History of VT (myocardial infarction) Heart valve stenosis Surgical History Hx of vertebroplasty (12/2011) History of tonsillectomy and adenoidectomy History of total right knee replacement (12/20/14) History of mastectomy (1999) Hx of foot surgery (1996) History of open reduction and internal fixation (ORIF) procedure (1987) History of coronary artery bypass graft (2003) Hx of coronary angioplasty (09/1993) History of cataract extraction History of back surgery History of cardiac cath (09/2018) 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 HEENT: Head normocephalic, atraumatic, EOMI, pupils reactive, face symmetric, moist mucous membranes NECK: Supple, full range of motion CARDIOVASCULAR: Regular rate and rhythm without murmurs, rubs or gallops. RESPIRATORY: Breath sounds equal bilaterally, no wheezes rales or rhonchi. ABDOMEN: Soft, positive mainly for suprapubic tenderness. But does have generalized tenderness throughout. Normoactive bowel sounds all 4 quadrants. No guarding or rebound, rigidity, no mass : No CVA tenderness EXTREMITIES: Normal range of motion, no clubbing or edema. Neurovascularly intact NEUROLOGICAL: Cranial nerves II through XII grossly intact. Moving all extremities SKIN: Warm, dry, no petechiae, no rashes or lesions. Initial Vital Signs Initial Vital Signs: Vital Signs Temperature 97 F L 11/22/23 12:47 Pulse Rate 75 11/22/23 12:47 Respiratory Rate 17 11/22/23 12:47 Blood Pressure 151/82 H 11/22/23 12:47 Pulse Oximetry 95 11/22/23 12:47 Oxygen Delivery Method Room Air 11/22/23 12:47 Course Orders Ordered: ED Orders 11/22/23 12:07 Complete Blood Count AUTO DIFF Stat Comprehensive Metabolic Panel Stat Lipase Stat 11/22/23 12:53 EKG-12 Lead Stat 11/22/23 13:40 GI Panel (Film Array) Stat 11/22/23 14:35 CT abdomen pelvis w con Stat 11/22/23 16:30 Urinalysis and Microscopic Stat Discontinued Medications Sodium Chloride (Normal Saline 0.9%) 1,000 mls @ 1,000 mls/hr IV BOLUS ONE Stop: 11/22/23 15:35 Last Infusion: 11/22/23 15:48 Dose: Infused Documented By: Admin: 11/22/23 15:12 Dose: 1,000 mls/hr Documented By: YONY Ondansetron HCl (Ondansetron 4 Mg Odt) 4 mg PO NOW PRN PRN Reason: Nausea And Vomiting Ondansetron HCl (Ondansetron 4 Mg/2 Ml Inj) 4 mg IV NOW PRN PRN Reason: Nausea And Vomiting Prednisone (Prednisone 20 Mg Tablet) 40 mg PO NOW ONE Stop: 11/22/23 16:13 Last Admin: 11/22/23 16:22 Dose: 40 mg Documented By: MEME Vital Signs Vital signs: Vital Signs - 8 hr 11/22/23 12:47 11/22/23 15:45 11/22/23 15:45 Temperature 97 F L Pulse Rate 75 84 Respiratory Rate 17 Blood Pressure 151/82 H 187/84 H Pulse Oximetry 95 96 Oxygen Delivery Method Room Air 11/22/23 16:00 Temperature Pulse Rate 77 Respiratory Rate Blood Pressure Pulse Oximetry 96 Oxygen Delivery Method MDM - Abdominal Pain Lab Data 11/22/23 12:07 11/22/23 12:07 Labs: Lab Results 11/22/23 11/22/23 11/22/23 Range/Units 12:07 13:40 16:30 WBC 7.3 (4.5-11.0) X10^3/uL RBC 4.11 (4.0-5.2) X10^6/uL Hgb 13.2 (12.0-16.0) g/dL Hct 38.3 (36-46) % MCV 93.3 (80-100) fL MCH 32.1 (26-34) PG MCHC 34.5 (30-36) % RDW 13.6 (11.6-14.8) % Plt Count 189 (150-400) X10^3/uL Neut % (Auto) 70.9 (50-75) % Lymph % (Auto) 12.8 L (25-40) % Divide % (Auto) 9.4 (3-14) % Eos % (Auto) 6.5 H (2-4) % Baso % (Auto) 0.4 (0-2) % Neut # (Auto) 5200 (7237-3118) /uL Lymph # (Auto) 900 L (2682-1317) /uL Divide # (Auto) 700 (0-900) /uL Eos # (Auto) 500 H (0-450) /uL Baso # (Auto) 0 (0-100) /uL Sodium 135 L (137-145) mmol/L Potassium 3.5 (3.4-5.1) mmol/L Chloride 101 (98-107) mmol/L Carbon Dioxide 32 (22-32) mmol/L BUN 6 L (7-17) mg/dL Creatinine 0.58 (0.52-1.04) mg/dL Estimated GFR > 60 (>60) mL/min BUN/Creatinine Ratio 10.3 (6-22) Glucose 100 (80-110) mg/dL Calcium 8.9 (8.4-10.2) mg/dL Total Bilirubin 0.6 (0.2-1.3) mg/dL AST 39 H (14-36) IU/L ALT 34 (<35) IU/L Alkaline Phosphatase 72 (38-126) U/L Total Protein 6.5 (6.3-8.2) g/dL Albumin 3.7 (3.5-5.0) g/dL Globulin 2.8 (1.7-4.1) g/dL Albumin/Globulin Ratio 1.3 (1.0-2.8) Lipase 36 (23-300) U/L Urine Color Yellow Urine Appearance Clear Urine pH 6.0 (4.5-8.0) Ur Specific Vestal 1.010 (1.000-1.035) Urine Protein Negative (Negative) Urine Glucose (UA) Negative (Negative) g/dL Urine Ketones Negative (NEGATIVE) Urine Occult Blood Trace-intact (Negative) Urine Nitrate Negative (Negative) Urine Bilirubin Negative (NEGATIVE) Urine Urobilinogen 0.2 (0.2) E.U./dL Ur Leukocyte Esterase Negative (NEGATIVE) Urine RBC None seen (0-5/HPF) Urine WBC None seen (0-5/HPF) Ur Squamous Epith Cells 0-1 /hpf (0-5/HPF) Urine Bacteria None seen (None) Ur Culture Indicated? Cult not indicated Vol Urine Centrifuged 10ml (spun) Stl C. cayetanensis PCR Not detected (Not Detect) Stool Rotavirus (PCR) Not detected (Not Detect) Stool Adenovirus (PCR) Not detected (Not Detect) Stool Astrovirus (PCR) Not detected (Not Detect) Stool Cryptosporidium PCR Not detected (Not Detect) Stl E.coli Shiga Tox PCR Not detected (Not Detect) St Sh/Enteroin Ecoli PCR Not detected (Not Detect) Stl Enterotoxigenic E PCR Not detected (Not Detect) Stool EPEC (PCR) Not detected (Not Detect) Stl E. histolytica PCR Not detected (Not Detect) Stool Giardia Lamblia PCR Not detected (Not Detect) Stool Sapovirus (PCR) Not detected (Not Detect) Stl P. shigelloides PCR Not detected (Not Detect) St Y.enterocolitica PCR Not detected (Not Detect) Stool Vibrio (PCR) Not detected (Not Detect) Stl Vibrio cholerae PCR Not detected (Not Detect) Stl Enteroaggr Ecoli PCR Not detected (Not Detect) Stl Norovirus GI/GII PCR Not detected (Not Detect) Campylobacter (PCR) Not detected (Not Detect) C. difficile Tox (PCR) Not detected (Not Detect) Salmonella (PCR) Not detected (Not Detect) Imaging Data CT scan - abdomen/pelvis: Radiologist's Impression: Navya George??88??F??1935 ? Allergy/Adv: lisinopril, benazepril, morphine, metoprolol, simvastatin, meperidine (More??) Close Abdomen/Pelvis CT (Signed) Yimi Mills - 11/22/23 Chest X-Ray (Signed) Nicole Larios - 10/06/23 Hip MRI (Signed) Riaz Dodson - 10/03/23 Knee X-Ray (Signed) Maurice Velasco - 09/30/23 Hip X-Ray (Signed) Kaz Redman - 09/22/23 Echocardiogram Ultrasound (Signed) Ze Kimball - 09/22/23 Mammogram Diagnostic (Signed) Lucila Lopez - 03/20/23 Axilla US (Signed) Lucila Lopez - 03/20/23 Cervical Spine MRI (Signed) Nicole Larios - 01/26/23 Lumbar Spine MRI (Signed) Nicole Larios - 01/09/23 Mammogram Screening (Signed) Leon Lama - 12/04/22 Lumbar Spine MRI (Signed) Nicole Larios - 09/17/22 Echocardiogram Ultrasound (Signed) Ze Kimball - 07/01/22 Foot MRI (Signed) Riaz Dodson - 04/05/22 Mammogram Screening (Signed) Maxx Sanderson - 12/03/21 Telemetry Strips 10/04/21 Radiology Report (Cancelled) Ze Kimball - 06/26/21 Myocardial Perfusion Scan Nuc Med (Signed) Ze Kimball - 06/26/21 Hand X-Ray (Signed) Yimi Mills - 03/28/21 Hand X-Ray (Cancelled) 03/28/21 PFT Result 02/15/[address] (Signed) Mauricio Murrell - 12/24/20 Breast Ultrasound (Signed) Fortino Bear - 12/14/20 Chest X-Ray (Signed) Osman Tong - 12/11/20 Mammogram Screening (Signed) Leon Lama - 11/28/20 Echocardiogram Ultrasound (Signed) RanjanataraChao - 11/28/20 Echocardiogram Ultrasound (Signed) Ze Kimball - 04/06/20 Mammogram Diagnostic (Signed) Lucila Lopez - 03/14/20 Breast Ultrasound (Signed) Lucila Lopez - 03/14/20 Chest/Abdomen/Pelvis CT (Signed) Osman Tong - 01/17/20 Hip X-Ray (Signed) Hamilton Patel - 12/22/19 Upper Extremity Ultrasound (Signed) KristaColton estebaneliel - 12/19/19 Mammogram, Additional Views (Signed) Josué Miller - 10/18/19 Breast Ultrasound (Signed) Josué Miller - 10/18/19 Mammogram Screening (Signed) Maxx Sanderson - 10/13/19 Chest X-Ray (Signed) Misty Suh - 09/27/19 Mammogram Screening (Signed) Lucila Lopez - 10/08/18 Echocardiogram Ultrasound (Signed) Ze Kimball - 09/07/18 Telemetry Strips 08/24/18 Lumbar Spine MRI (Signed) Osman Tong - 02/15/18 Launch?[place] [address] CT Scan Report Signed Patient: Navya George MR#: [id number] : 1935 Acct:[id number] Age/Sex: 88 / F Date of Service: 11/22/23 Loc: ED Accession Number: [id number] Procedure: CT abdomen pelvis w con Ordering Provider: Madeleine Rodriguez D.O. PROCEDURE: CT ABDOMEN PELVIS W CON INDICATIONS: abd pain x 1wk, diarrhea x 1 month, lower abd TECHNIQUE: After the administration of intravenous contrast, axial sections acquired from the lung bases to the pubic symphysis. Coronal and sagittal reformats were performed. For radiation dose reduction, the following was used: automated exposure control, adjustment of mA and/or kV according to patient size. COMPARISON: [facility], CT, ABDOMEN/PELVIS WITH CONTRAST, 11/27/2008, 9:50. FINDINGS: Lower thorax: The lung bases are clear. Heart size normal. Aortic valve replacement noted No hiatal hernia. Liver: Normal in size and attenuation. No contour deformity present. Biliary system: No calcified cholelithiasis or pericholecystic inflammation. No intra or extrahepatic bile duct dilatation. Pancreas: Unremarkable without mass or inflammation evident. Spleen: Normal in size and density. Adrenals: Normal morphology and density. Reproductive system: Unremarkable as visualized. Urinary system: Normal renal size and attenuation. No renal calculi, hydronephrosis, or solid mass present. Urinary bladder unremarkable. Gastrointestinal system: Bowel wall thickening and pericolonic inflammatory changes noted involving the colon with relative sparing of the sigmoid colon colitis. No evidence of obstruction or perforation. No abscess. Appendix: No findings to suggest acute appendicitis. Peritoneal spaces: No mesenteric or retroperitoneal adenopathy. No free air. No free fluid. Vasculature: Aortic atherosclerotic vascular calcification noted without evidence of aneurysm. Abdominal wall: Abdominal wall intact without evidence of ventral or inguinal hernias. Musculoskeletal: Normal bone mineralization. Degenerative disc disease and arthropathy noted in lower lumbar spine. Old compression fractures noted L1, L2 and L3 with vertebroplasty methylmethacrylate No acute fractures. IMPRESSION: 1. Acute colitis without obstruction, perforation or abscess. Approved by: Yimi Mills M.D. on 11/22/2023 at 14:16 ECG Data Attestation: I personally reviewed and interpreted this ECG as follows: Prior ECG tracings: available for review Interpretation: Rate of 74 VA 200 QRS of 124 QTC of 426. No acute ST elevation depression noted right bundle-branch block. Patient has prior from 11/14/2023 which appears similar. MDM Narrative Medical decision making narrative: This is a 88-year-old female who presents with complaint of persistent abdominal pain worsening over the past week. Patient has had diarrhea for approximately a month no black or bloody stools but was on 2 rounds of antibiotics. She states had outpatient testing for C diff which she was told was negative I do not have access to these records. Labs show white count of 7.3 hemoglobin of 13 platelets of 189, glucose is 100 with normal creatinine and a BUN of 6, sodium 135 potassium 3 5 chloride of 101 and a CO2 of 32, AST is [address] abd/pelvis: Shows colitis sparing relatively the sigmoid colon, no abscess no obstruction or perforation patient has old compression fractures with prior vertebroplasty no acute fracture. GI panel was negative for Campylobacter, C diff for Salmonella, PCR gi panel is negative. Discussed with patient she has had 2 rounds antibiotics which likely initiate this, we will hold off on any additional antibiotics will do a short course of steroids I suspect this is more inflammatory. She has been taking probiotics. As well as yogurt with live culture. Patient and I discussed we will give a short course of pain medication. She did try Imodium initially which did help but has not been as persistently helpful. Discharge Plan Departure Patient Disposition: Home Clinical Impression: Colitis Instructions: DI for Colitis Activity Restrictions/Additional Instructions: Follow up with your physician as needed, if you have persistent abdominal pain you may need to follow up for colonoscopy at some point. Your CT imaging does show thickening or inflammation of the colon consistent with colitis. Your labs and stool samples do not reflect any obvious infectious source. I suspect her symptoms maybe more inflammatory. Take oral steroids until completed. You may take Tylenol up to a 1000 mg every 6 hours as needed for pain. If in adequate you can take Ultram 1-2 tablets every 6 hours as needed. This medication can make you sleepy do not drive, perform hazardous activities or make any major decisions while taking it. This medication will make you constipated please take a stool softener once to twice daily until stools are soft and regular. Prescription sent to [facility] in [place]. Please return for fevers, worsening abdominal back or flank pain, vomiting, black or bloody stools, new urinary changes, lightheadedness or passing out or other new or concerning changes Prescriptions: New prednisone 10 mg tablets,dose pack See Rx Instructions .ROUTE .COMPLEX Qty: 15 0RF Rx Instructions: Take 5 tablets p.o. x1 day, then 4 tablets p.o. x1 day, then 3 tablets p.o. x1 day, then 2 tablets p.o. x1 day, then 1 tablet p.o. x1 day tramadol 50 mg tablet 50 mg PO Q6H PRN (Reason: pain) Qty: 10 0RF No Action levothyroxine 50 mcg tablet 50 mcg PO DAILY benzonatate 200 mg capsule 200 mg PO BID PRN (Reason: cough) Qty: 28 0RF ipratropium bromide 21 mcg (0.03 %) spray,non-aerosol 2 spray intranasal BID PRN (Reason: allergy symptoms) Qty: 30 0RF Rx Instructions: administer into each nostril amitriptyline 25 mg tablet 25 mg PO DAILY aspirin 81 mg tablet,delayed release (DR/EC) 81 mg PO DAILY atorvastatin 80 mg tablet 80 mg PO DAILY carvedilol 12.5 mg tablet 12.5 mg PO SEEINSTR Rx Instructions: Pt takes 6.25mg qam 12.5mg qpm per pt magnesium oxide 500 mg capsule 500 mg PO DAILY Referrals: Telma Ivy MD [Primary Care Provider] - Stand Alone Forms: Patient Portal/API
--- NOTE | 2023-11-22 14:35 | DI.CT.S_ITS ---
PROCEDURE: CT ABDOMEN PELVIS W CON INDICATIONS: abd pain x 1wk, diarrhea x 1 month, lower abd TECHNIQUE: After the administration of intravenous contrast, axial sections acquired from the lung bases to the pubic symphysis. Coronal and sagittal reformats were performed. For radiation dose reduction, the following was used: automated exposure control, adjustment of mA and/or kV according to patient size. COMPARISON: [facility], CT, ABDOMEN/PELVIS WITH CONTRAST, 11/27/2008, 9:50. FINDINGS: Lower thorax: The lung bases are clear. Heart size normal. Aortic valve replacement noted No hiatal hernia. Liver: Normal in size and attenuation. No contour deformity present. Biliary system: No calcified cholelithiasis or pericholecystic inflammation. No intra or extrahepatic bile duct dilatation. Pancreas: Unremarkable without mass or inflammation evident. Spleen: Normal in size and density. Adrenals: Normal morphology and density. Reproductive system: Unremarkable as visualized. Urinary system: Normal renal size and attenuation. No renal calculi, hydronephrosis, or solid mass present. Urinary bladder unremarkable. Gastrointestinal system: Bowel wall thickening and pericolonic inflammatory changes noted involving the colon with relative sparing of the sigmoid colon colitis. No evidence of obstruction or perforation. No abscess. Appendix: No findings to suggest acute appendicitis. Peritoneal spaces: No mesenteric or retroperitoneal adenopathy. No free air. No free fluid. Vasculature: Aortic atherosclerotic vascular calcification noted without evidence of aneurysm. Abdominal wall: Abdominal wall intact without evidence of ventral or inguinal hernias. Musculoskeletal: Normal bone mineralization. Degenerative disc disease and arthropathy noted in lower lumbar spine. Old compression fractures noted L1, L2 and L3 with vertebroplasty methylmethacrylate No acute fractures. IMPRESSION: 1. Acute colitis without obstruction, perforation or abscess. Approved by: Yimi Mills M.D. on 11/22/2023 at 14:16
[2023-11-22] MEDS: SODIUM CHLORIDE 0.9% 1,000 ML 1000 ML IV (15:12)
[2023-11-22 15:14] LABS: Adenovirus F 40/41 Not Detected (Not Detect); Astrovirus Not Detected (Not Detect); Campylobacter Not Detected (Not Detect); Clostridium difficile toxin AB Not Detected (Not Detect); Cryptosporidium Not Detected (Not Detect); Cyclospora cayetanensis Not Detected (Not Detect); Entamoeba histolytica Not Detected (Not Detect); Enteroaggregative E.coli Not Detected (Not Detect); Enteropathogenic E.coli Not Detected (Not Detect); Enterotoxigenic E.coli It/st Not Detected (Not Detect); Giardia lamblia Not Detected (Not Detect); Norovirus GI/GII Not Detected (Not Detect); Plesiomonsa shigelloides Not Detected (Not Detect); Rotavirus A Not Detected (Not Detect); Salmonella Not Detected (Not Detect); Sapovirus Not Detected (Not Detect); Shiga-like toxin-prod E.coli Not Detected (Not Detect); Shigella/Enteroinvasive E.coli Not Detected (Not Detect); Vibrio Not Detected (Not Detect); Vibrio cholerae Not Detected (Not Detect); Yersinia enterocolitica Not Detected (Not Detect)
[2023-11-22 15:45] VITALS: BP 187/84; PULSE 84; O2SAT 96
[2023-11-22 16:00] VITALS: PULSE 77; O2SAT 96
[2023-11-22] MEDS: predniSONE 20 MG TABLET 40 MG PO (16:22)
[2023-11-22 16:41] LABS: Appearance Urine UA CLEAR; Bilirubin Urine UA NEGATIVE (NEGATIVE); Color Urine UA YELLOW; Glucose Urine UA NEGATIVE (Negative); Ketones Urine UA NEGATIVE (NEGATIVE); Leukocyte Esterase Urine UA NEGATIVE (NEGATIVE); Nitrite Urine UA NEGATIVE (Negative); Occult Blood Urine UA TRACE-INTACT (Negative); Protein Urine UA NEGATIVE (Negative); Urobilinogen Urine UA 0.2 E.U./dL (0.2)
[2023-11-22 16:56] LABS: Bacteria Urine None Seen; Culture Indicated Urine Cult Not Indicated; RBC Urine None Seen (0-5/HPF); Squamous Epithelial Cell Urine 0-1 /HPF (0-5/HPF); Urine Volume 10mL (spun); WBC Urine None Seen (0-5/HPF)
== END 2023-11-22 16:33 | disposition home or self-care (01) ==
PROVIDERS: Emergency Provider Emergency Medicine; Family Provider Family Medicine; PCP Family Medicine
DX: K52.9 Noninfective gastroenteritis and colitis, unspecified (principal); R10.30 Lower abdominal pain, unspecified
CPT/HCPCS: 36415; 74177; 80053; 81001; 83690; 85025; 87507; 93005; 93010; 96360; 99284; Q9967

== ENCOUNTER → 2023-11-30 09:59 | Outpatient (CLI) | payer MEDICARE, OTHER, SELFPAY ==
--- NOTE | 2023-11-30 10:04 | DI.RAD.S_ITS ---
PROCEDURE: XR HAND LT MIN 3V INDICATIONS: HAND PAIN TECHNIQUE: 3 views of the hand(s) acquired. COMPARISON: [facility], CR, XR HAND RT MIN 3V, 03/28/2021, 11:20. FINDINGS: Bones: No fractures or dislocations. Carpal bones are normally aligned. Moderate osteoarthritic changes are noted throughout left hand and wrist joints most notably involving triscaphe joint and 1st MCP joint. Radiolucencies are noted involving 2nd, 3rd and 5th metacarpal heads as well as 3rd and 4th middle phalangeal head and basis. No suspicious bony lesions. Soft tissues: No suspicious soft tissue calcifications. IMPRESSION: No acute left hand fracture or dislocation. Moderate osteoarthritic changes throughout left hand and wrist joints as above. Radiolucencies involving multiple MCP joints and interphalangeal joints as described above concerning for erosion secondary to inflammatory arthropathy versus subcortical cysts. Dictated by: Mauricio Murrell M.D. on 11/30/2023 at 12:23 Approved by: Mauricio Murrell M.D. on 11/30/2023 at 12:24
[2023-11-30 11:28] LABS: Add Manual Diff / Slide Review NO; Basophils Absolute Auto 0 /uL (0-100); Basophils Percent Auto 0.4 % (0-2); Eosinophils Absolute Auto 600 /uL (0-450); Eosinophils Percent Auto 6.3 % (2-4); Hematocrit 39.3 % (36-46); Hemoglobin 13.6 g/dL (12.0-16.0); Lymphocytes Absolute Auto 1500 /uL (1100-4500); Mean Corpuscular HGB Conc 34.7 % (30-36); Mean Corpuscular Hemoglobin 32.2 PG (26-34); Mean Corpuscular Volume 92.7 fL (80-100); Monocytes Absolute Auto 1000 /uL (0-900); Monocytes Percent Auto 10.7 % (3-14); Neutrophils Absolute Auto 6600 /uL (1500-7000); Neutrophils Percent Auto 67.6 % (50-75); Platelet Count 205 X10^3/uL (150-400); Red Blood Cell Count 4.24 X10^6/uL (4.0-5.2); Red Cell Distribution Width 13.6 % (11.6-14.8); White Blood Cell Count 9.7 X10^3/uL (4.5-11.0)
[2023-11-30 11:32] LABS: Alanine Aminotransferase 31 IU/L (<35); Albumin 3.7 g/dL (3.5-5.0); Albumin Globulin Ratio 1.7 (1.0-2.8); Alkaline Phosphatase 65 U/L (38-126); Aspartate Aminotransferase 28 IU/L (14-36); BUN Creatinine Ratio 9.8 (6-22); Bilirubin Total 0.9 mg/dL (0.2-1.3); Blood Urea Nitrogen 6 mg/dL (7-17); Calcium 8.7 mg/dL (8.4-10.2); Carbon Dioxide 32 mmol/L (22-32); Chloride 101 mmol/L (98-107); Estimated Glomerular Filt Rate > 60 mL/min (>60); Globulin 2.2 g/dL (1.7-4.1); Glucose 82 mg/dL (80-110); HEMOLYSIS < 15 (0-50); Potassium 3.7 mmol/L (3.4-5.1); Sodium 135 mmol/L (137-145); Total Protein 5.9 g/dL (6.3-8.2)
== END ==
LOC: RAD 10:02
PROVIDERS: Family Provider Family Medicine; PCP Family Medicine; Referring Provider Family Medicine; Visit Provider Family Medicine
DX: R10.84 Generalized abdominal pain (principal); R19.7 Diarrhea, unspecified; M79.642 Pain in left hand
CPT/HCPCS: 36415; 73130; 80053; 85025

== ENCOUNTER → 2024-01-14 13:35 | Outpatient (CLI) | payer MEDICARE, OTHER, SELFPAY ==
[2024-01-14 15:51] LABS: Add Manual Diff / Slide Review NO; Basophils Absolute Auto 0 /uL (0-100); Basophils Percent Auto 0.4 % (0-2); Eosinophils Absolute Auto 300 /uL (0-450); Eosinophils Percent Auto 4.2 % (2-4); Hematocrit 34.6 % (36-46); Hemoglobin 12.1 g/dL (12.0-16.0); Lymphocytes Absolute Auto 1500 /uL (1100-4500); Lymphocytes Percent Auto 18.2 % (25-40); Mean Corpuscular Volume 94.1 fL (80-100); Monocytes Absolute Auto 600 /uL (0-900); Monocytes Percent Auto 7.6 % (3-14); Neutrophils Absolute Auto 5800 /uL (1500-7000); Neutrophils Percent Auto 69.6 % (50-75); Platelet Count 198 X10^3/uL (150-400); Red Blood Cell Count 3.68 X10^6/uL (4.0-5.2); Red Cell Distribution Width 13.8 % (11.6-14.8); White Blood Cell Count 8.4 X10^3/uL (4.5-11.0)
== END ==
PROVIDERS: Family Provider Family Medicine; PCP Family Medicine; Referring Provider Internal Medicine Gastroenterology; Visit Provider Internal Medicine Gastroenterology
DX: K92.1 Melena (principal)
CPT/HCPCS: 36415; 85025

== ENCOUNTER → 2024-02-05 08:56 | Outpatient (CLI) | payer MEDICARE, OTHER, SELFPAY ==
[2024-02-05 11:52] LABS: Add Manual Diff / Slide Review NO; Basophils Absolute Auto 0 /uL (0-100); Basophils Percent Auto 0.5 % (0-2); Eosinophils Absolute Auto 600 /uL (0-450); Eosinophils Percent Auto 9.5 % (2-4); Hematocrit 35.8 % (36-46); Hemoglobin 12.3 g/dL (12.0-16.0); Lymphocytes Absolute Auto 1100 /uL (1100-4500); Lymphocytes Percent Auto 17.4 % (25-40); Mean Corpuscular HGB Conc 34.4 % (30-36); Mean Corpuscular Hemoglobin 32.6 PG (26-34); Mean Corpuscular Volume 94.7 fL (80-100); Monocytes Absolute Auto 600 /uL (0-900); Monocytes Percent Auto 9.5 % (3-14); Neutrophils Absolute Auto 3800 /uL (1500-7000); Neutrophils Percent Auto 63.1 % (50-75); Platelet Count 188 X10^3/uL (150-400); Red Blood Cell Count 3.78 X10^6/uL (4.0-5.2); Red Cell Distribution Width 13.4 % (11.6-14.8); White Blood Cell Count 6.1 X10^3/uL (4.5-11.0)
[2024-02-05 11:58] LABS: Alanine Aminotransferase 20 IU/L (<35); Albumin 3.5 g/dL (3.5-5.0); Albumin Globulin Ratio 1.4 (1.0-2.8); Alkaline Phosphatase 73 U/L (38-126); Aspartate Aminotransferase 28 IU/L (14-36); BUN Creatinine Ratio 16.9 (6-22); Bilirubin Total 0.9 mg/dL (0.2-1.3); Blood Urea Nitrogen 11 mg/dL (7-17); Calcium 8.6 mg/dL (8.4-10.2); Carbon Dioxide 28 mmol/L (22-32); Chloride 102 mmol/L (98-107); Estimated Glomerular Filt Rate > 60 mL/min (>60); Globulin 2.5 g/dL (1.7-4.1); Glucose 102 mg/dL (80-110); HEMOLYSIS < 15 (0-50); Potassium 4.3 mmol/L (3.4-5.1); Sodium 134 mmol/L (137-145)
[2024-02-05 12:06] LABS: NT-proBNP (BNP-Adult 18+) 608 pg/mL (<450)
--- NOTE | 2024-02-09 01:05 | DI.NM.S_ITS ---
DATE OF SERVICE: 02/05/2024 NAME OF STUDY: Pharmacological perfusion study. INDICATION: Chest pain with known history of RCA stent, status post TAVR, hypertension. RADIOPHARMACEUTICAL: 25.4 millicuries technetium-99m Myoview IV was injected at stress and 25.9 millicuries technetium-99m Myoview IV was injected at rest. CARDIAC STRESS: The patient underwent IV Lexiscan perfusion study under the supervision of an attending staff. She remained hemodynamically stable. Resting blood pressure 142/80. Resting rhythm sinus with right bundle-branch block. During stress, no new convincing ischemic changes or significant arrhythmias seen. Had minimal dyspnea. No chest discomfort. RAW DATA: There is increased subdiaphragmatic activity. GATED STUDY: Stress LV ejection fraction 92 and resting LV ejection fraction 81% without any obvious wall motion abnormalities. Resting end- diastolic volume 64 mL. TID ratio 1.13, which is within normal limits. Lung/heart ratio 0.29, which is within normal limits. MYOCARDIAL PERFUSION: Stress supine, resting supine and stress prone images were compared to each other. Stress supine and resting supine images revealed small size, mildly decreased perfusion of distal inferior wall, which got improved during stress prone images suggestive of tissue attenuation artifact. During stress prone images, no convincing ischemia, infarction pattern seen. CONCLUSION: I will call this study likely normal myocardial perfusion study with evidence of tissue attenuation artifact, which got improved during stress prone images. No convincing ischemia or infarction pattern during stress prone images. Robust left ventricular function during stress images. Baseline rhythm sinus with right bundle-branch block. No new ischemic changes or new significant arrhythmias. No anginal symptoms. Overall, low-risk myocardial perfusion scan. The patient had exercise perfusion study in June 2021. At that time, also patient had normal myocardial perfusion and less diaphragmatic attenuation in comparison to the previous myocardial perfusion study of December 2014. Ariel Navya - [employer]/fn/ doc#: [id number]/job#: [id number] dd: 02/08/2024 16:44:00 dt: 02/09/2024 00:11:00 DICTATING MD/COPIES TO: Aubrie Slaughter MD COPIES MNE: CATHERINE;
== END ==
LOC: NUCM 08:57
PROVIDERS: Family Provider Family Medicine; PCP Family Medicine; Referring Provider Specialist; Visit Provider Specialist
DX: I10 Essential (primary) hypertension; R06.02 Shortness of breath; L03.116 Cellulitis of left lower limb; R60.0 Localized edema; R07.9 Chest pain, unspecified
CPT/HCPCS: 36415; 78452; 80053; 83880; 85025; 93017; A9502; J2785

== ENCOUNTER → 2024-02-29 10:01 | Outpatient (CLI) | payer MEDICARE, OTHER, SELFPAY ==
[2024-02-29 12:23] LABS: Add Manual Diff / Slide Review NO; Basophils Absolute Auto 0 /uL (0-100); Basophils Percent Auto 0.4 % (0-2); Eosinophils Absolute Auto 700 /uL (0-450); Eosinophils Percent Auto 10.5 % (2-4); Hemoglobin 12.5 g/dL (12.0-16.0); Lymphocytes Absolute Auto 1300 /uL (1100-4500); Lymphocytes Percent Auto 19.9 % (25-40); Mean Corpuscular HGB Conc 34.8 % (30-36); Mean Corpuscular Hemoglobin 32.6 PG (26-34); Mean Corpuscular Volume 93.7 fL (80-100); Monocytes Absolute Auto 500 /uL (0-900); Monocytes Percent Auto 7.6 % (3-14); Neutrophils Absolute Auto 3900 /uL (1500-7000); Neutrophils Percent Auto 61.6 % (50-75); Platelet Count 166 X10^3/uL (150-400); Red Blood Cell Count 3.84 X10^6/uL (4.0-5.2); Red Cell Distribution Width 12.9 % (11.6-14.8); White Blood Cell Count 6.4 X10^3/uL (4.5-11.0)
[2024-02-29 14:35] LABS: Alanine Aminotransferase 29 IU/L (<35); Albumin 3.7 g/dL (3.5-5.0); Albumin Globulin Ratio 1.5 (1.0-2.8); Alkaline Phosphatase 80 U/L (38-126); Aspartate Aminotransferase 38 IU/L (14-36); BUN Creatinine Ratio 11.9 (6-22); Bilirubin Total 0.8 mg/dL (0.2-1.3); Blood Urea Nitrogen 7 mg/dL (7-17); Calcium 8.5 mg/dL (8.4-10.2); Carbon Dioxide 28 mmol/L (22-32); Chloride 100 mmol/L (98-107); Estimated Glomerular Filt Rate > 60 mL/min (>60); Globulin 2.4 g/dL (1.7-4.1); Glucose 92 mg/dL (80-110); HEMOLYSIS < 15 (0-50); Magnesium 1.8 mg/dL (1.6-2.3); Potassium 4.2 mmol/L (3.4-5.1); Sodium 134 mmol/L (137-145); Total Protein 6.1 g/dL (6.3-8.2)
[2024-02-29 14:40] LABS: NT-proBNP (BNP-Adult 18+) 756 pg/mL (<450)
[2024-02-29 14:51] LABS: Free T4, Direct Thyroxine 1.32 ng/dL (0.78-2.19)
[2024-02-29 15:05] LABS: Thyroid Stimulating Hormone 2.43 uIU/mL (0.47-4.68)
== END ==
LOC: LAB 10:04
PROVIDERS: Family Provider Family Medicine; PCP Family Medicine; Referring Provider Registered Nurse; Visit Provider Registered Nurse
DX: I49.9 Cardiac arrhythmia, unspecified (principal); R06.00 Dyspnea, unspecified; R00.0 Tachycardia, unspecified; I25.10 Atherosclerotic heart disease of native coronary artery without angina pectoris; E03.9 Hypothyroidism, unspecified; I10 Essential (primary) hypertension
CPT/HCPCS: 36415; 80053; 83735; 83880; 84439; 84443; 85025

== ENCOUNTER → 2024-03-12 | Outpatient (CLI) | payer MEDICARE, OTHER, SELFPAY ==
--- NOTE | 2024-03-12 10:06 | DI.MG.S_ITS ---
Patient Name: ADEEL LAGUNAS date: 1935 Sex: F Attending Physician: Cata Indications: Date: 03/14/2024 12:30 At the request of: TRUNG GARCIA Procedure: MM screening mammo BI BILATERAL DIGITAL SCREENING MAMMOGRAM 3D/2D WITH CAD: 03/12/2024 CLINICAL: Routine screening. Personal history of left breast cancer. Comparison is made to exams dated: 12/04/2022 mammogram, 12/03/2021 mammogram, and 11/28/2020 mammogram - [facility]. There are scattered areas of fibroglandular density in both breasts (category b / 25%-50% glandular tissue). Current study was also evaluated with a Computer Aided Detection (CAD) system. There are benign calcifications in both breasts. There also are benign vascular calcifications in both breasts. Additionally, there are benign post operative findings in the left breast. No significant masses, calcifications, or other findings are seen in either breast. There has been no significant interval change. IMPRESSION: BENIGN There is no mammographic evidence of malignancy. A 1 year screening mammogram is recommended. This exam was interpreted at Station ID: [id number]. NOTE: For mammograms, a report in lay terms will be sent to the patient. Approximately 15% of breast malignancies will not be visualized mammographically. In the management of a palpable breast mass, a negative mammogram must not discourage biopsy of a clinically suspicious lesion. Electronically Signed By: Devonte Payne M.D. Continued Report - Page 2 of 2 Patient Name: ADEEL LAGUNAS date: 1935 Sex: F Attending Physician: Cata Indications: Date: 03/14/2024 12:30 At the request of: TRUNG GARCIA Procedure: MM screening mammo BI lc/penrad:03/14/2024 12:30:04 letter sent: Normal Exam ACR BI-RADS Category 2: Benign Finding(s) 3342C
== END ==
LOC: MAMMO 09:45
PROVIDERS: Family Provider Family Medicine; PCP Family Medicine; Referring Provider Family Medicine; Visit Provider Family Medicine
DX: Z12.31 Encounter for screening mammogram for malignant neoplasm of breast (principal); Z85.3 Personal history of malignant neoplasm of breast; R92.323 Mammographic fibroglandular density, bilateral breasts
CPT/HCPCS: 77063; 77067

== ENCOUNTER → 2024-04-27 10:52 | Outpatient (CLI) | payer MEDICARE, OTHER, SELFPAY ==
--- NOTE | 2024-04-27 10:55 | DI.RAD.S_ITS ---
PROCEDURE: XR FOOT RT MIN 3V INDICATIONS: RIGHT FOOT PAIN TECHNIQUE: 3 views of the foot were acquired. COMPARISON: None. FINDINGS: Severe degenerate changes at the right 1st metatarsophalangeal joint with joint space narrowing, large osteophytes and associated heterotopic calcification with soft tissue edema. Findings may be related to severe degenerative osteoarthritis, gout, prior history of infectious/inflammatory arthritis or other process. Moderate degenerate changes at the tarsal-metatarsal joint and at the tibiotalar, talonavicular and calcaneocuboid joints. 5 mm inferior calcaneal enthesophyte, spur. 1 cm posterior calcaneal enthesophyte spur calcification. Mild vascular calcifications. No radiographic evidence of acute fracture, dislocation or high attenuation soft tissue foreign body. IMPRESSION: Severe degenerate changes at the right 1st metatarsophalangeal joint as discussed above. Moderate degenerate changes at the tarsal-metatarsal joint and at the tibiotalar, talonavicular and calcaneocuboid joints. Dictated by: Lazarus Juarez M.D. on 04/27/2024 at 17:16 Approved by: Lazarus Juarez M.D. on 04/27/2024 at 17:19
== END ==
PROVIDERS: Family Provider Family Medicine; PCP Family Medicine; Referring Provider Family Medicine; Visit Provider Family Medicine
DX: M79.671 Pain in right foot (principal); M77.31 Calcaneal spur, right foot
CPT/HCPCS: 73630

== ENCOUNTER → 2024-06-09 11:11 | Outpatient (CLI) | payer MEDICARE, OTHER, SELFPAY ==
--- NOTE | 2024-06-09 | DI.RAD.S_ITS ---
PROCEDURE: XR DEXA AXIAL SKELETON INDICATIONS: OSTEOPENIA/UE WEAKNESS,ATAXIA COMPARISON: [facility], , DEXA AXIAL SKELETON, 10/05/2017, 14:31. FINDINGS: Lumbar Spine: Bone mineral density 1.069 g/cm2, T score 0.2, statistically significant decreased compared to prior by 10.3%. Left Hip: Bone mineral density 0.862 g/cm2, T score -0.7, statistically significant decreased compared to prior by 3.8%. Left Femoral Neck: Bone mineral density 0.660 g/cm2, T score -1.7. Right Hip: Bone mineral density 0.739 g/cm2, T score -1.7, statistically significant decreased compared to prior by 7%. Right Femoral Neck: Bone mineral density 0.594 g/cm2, T score -2.3. Fracture Risk Calculation (when applicable): 10-year fracture risk of a major osteoporotic fracture 20 percent and of a hip fracture 6.5 percent. (T score greater or equal to -1.0 to: NORMAL) (T score from -1.1 to -2.4: OSTEOPENIA) (T score less than or equal to -2.5: OSTEOPOROSIS) IMPRESSION: Low bone mineral density (osteopenia) by WHO classification. Follow-up guidelines as follows: Osteoporosis: Consider a repeat DEXA and Vertebral Fracture Assessment (VFA) exam in 2 years or sooner if medically necessary, to reassess this patient's status. Osteopenia: Consider a repeat DEXA in 2-3 years to reassess this patient's status, or if there is a new clinical indication. Normal: Consider a repeat DEXA in 5 years or sooner, or if there is a new clinical indication. All treatment decisions require clinical judgment and consideration of individual patient factors, including patient preferences, comorbidities, previous drug use, risk factors not captured in the FRAX model (e.g., frailty, falls, vitamin D deficiency, increased bone turnover, interval significant decline in bone density ) and possible under- or over-estimation of fracture risk by FRAX. In addition, the NOF Guide recommends that FDA-approved medical therapies be considered in postmenopausal women and men age >= 50 years with a: * Hip or vertebral (clinical or morphometric) fracture * T-score of <=-2.5 at the spine or hip * Ten-year fracture probability by FRAX of >= 3% for hip fracture or >=20% for major osteoporotic fracture. People with diagnosed cases of osteoporosis or at high risk for fracture should have regular bone mineral density tests. For patients eligible for Medicare, routine testing is allowed once every 2 years. The testing frequency can be increased to one year for patients who have rapidly progressing disease, those who are receiving or discontinuing medical therapy to restore bone mass, or have additional risk factors. Dictated by: Horacio Goldstein M.D. on 06/09/2024 at 14:43 Approved by: Horacio Goldstein M.D. on 06/09/2024 at 14:45
--- NOTE | 2024-06-09 | DI.MRI.S_ITS ---
PROCEDURE: MR STROKE Pre- and post-contrast brain MRI, non-contrast brain MR angiogram, pre- and postcontrast neck MR angiogram INDICATIONS: OSTEOPENIA/UE WEAKNESS,ATAXIA TECHNIQUE: Brain: Noncontrast axial T1 spin echo, axial T2 fast spin echo, sagittal and axial FLAIR, coronal T2 fast spin echo, axial gradient echo, axial diffusion and ADC through the brain. After the administration of contrast, axial 3D VIBE of the cranial vasculature and brain. Brain MRA: Non-contrast 3-D time of flight MR angiogram, with multiple fqmyyws-rglquwsmi-suvgezkwwn (MIP) reformats performed. Neck MRA: Axial and sagittal TruFISP through the neck. Coronal dynamic MR angiogram during administration of contrast in the arterial and venous phases, with 3-dimenstional yfwidwx-pqiltlxfn-znfmixlksp (MIP) reformats constructed from subtraction images. COMPARISON: None. FINDINGS: Image quality: Excellent. BRAIN: CSF spaces: Ventricles are normal in size and shape. Basal cisterns are patent. No extra-axial fluid collections. Brain: No intracranial bleeds or mass effects. Linn-white matter interface is normal. Diffusion weighted images show no acute infarct. Age-related global volume loss is present. Chronic microvascular ischemic changes are present, including within the brainstem. Brainstem appears normal. Normal intravascular flow voids are present. No abnormal intracranial enhancement. Skull and face: Calvarial marrow signal is normal. Bilateral lens replacements. Otherwise, the orbits are unremarkable. Sinuses: Mild diffuse paranasal sinus mucosal thickening. The mastoids are clear. BRAIN MR ANGIOGRAM: Anterior circulation: Intracranial internal carotid arteries are normal in size and enhancement. The flow within the paired anterior cerebral arteries is normal and symmetric. The flow within the middle cerebral arteries is normal and symmetric. The anterior communicating artery is seen. No stenoses, occlusions, or aneurysms. Posterior circulation: The visualized portions of the vertebral arteries demonstrate normal caliber, and join to form a normal appearing basilar artery. The flow within the posterior cerebral arteries is normal and symmetric. No stenoses, occlusions, or aneurysms. NECK MR ANGIOGRAM: Carotids: Great vessels demonstrate a conventional anatomy as they arise from the aortic arch. The origins of the common carotid arteries appear patent. The calibers and courses of both common carotid arteries are normal. Narrowing of the bilateral proximal internal carotid arteries, there appears to be 50-69% stenosis on the left and possibly greater than 70% stenosis on the right. The internal carotid arteries demonstrate normal course and caliber. Posterior circulation: The origins of the vertebral arteries appear patent. More superior portions of both vertebral arteries demonstrate normal course and caliber, and join to form a normal appearing basilar artery. Miscellaneous: Subclavian arteries appear patent. Pre-contrast images through the neck show no soft tissue abnormalities. IMPRESSION: BRAIN MRI: Age-appropriate appearance of the brain. No acute infarct or abnormal intracranial enhancement. Age-related global volume loss and chronic microvascular ischemic changes are present. BRAIN MR ANGIOGRAM: No significant intracranial arterial abnormalities. NECK MR ANGIOGRAM: Stenosis involving the bilateral proximal ICAs, this appears to be greater than 70% on the right and 50-69% on the left. Dictated by: Horacio Goldstein M.D. on 06/09/2024 at 14:21 Approved by: Horacio Goldstein M.D. on 06/09/2024 at 14:28
== END ==
LOC: RAD 11:12
PROVIDERS: Family Provider Family Medicine; PCP Family Medicine; Referring Provider Family Medicine; Visit Provider Family Medicine
DX: M85.89 Other specified disorders of bone density and structure, multiple sites (principal); Z78.0 Asymptomatic menopausal state; R27.0 Ataxia, unspecified; R29.898 Other symptoms and signs involving the musculoskeletal system; I65.23 Occlusion and stenosis of bilateral carotid arteries
CPT/HCPCS: 70544; 70549; 70553; 77080; A9579

== ENCOUNTER → 2024-07-11 08:32 | Outpatient (CLI) | payer MEDICARE, OTHER, SELFPAY ==
[2024-07-11 09:34] LABS: Alanine Aminotransferase 28 IU/L (<35); Albumin 3.8 g/dL (3.5-5.0); Albumin Globulin Ratio 1.7 (1.0-2.8); Alkaline Phosphatase 72 U/L (38-126); Aspartate Aminotransferase 37 IU/L (14-36); Bilirubin Total 0.8 mg/dL (0.2-1.3); Blood Urea Nitrogen 9 mg/dL (7-17); Calcium 9.2 mg/dL (8.4-10.2); Carbon Dioxide 31 mmol/L (22-32); Chloride 99 mmol/L (98-107); Estimated Glomerular Filt Rate > 60 mL/min (>60); Globulin 2.3 g/dL (1.7-4.1); Glucose 101 mg/dL (80-110); HEMOLYSIS < 15 (0-50); Magnesium 1.8 mg/dL (1.6-2.3); Potassium 4.6 mmol/L (3.4-5.1); Sodium 133 mmol/L (137-145); Total Protein 6.1 g/dL (6.3-8.2)
[2024-07-13 12:39] LABS: Cholesterol, Total 135 mg/dL (100-199); HDL-Cholesterol 70 mg/dL (>39); Historical Reading Comment: (.); LDL Particle 545 nmol/L (<1000); LDL Size 20.4 nm (>20.5); LDL-Cholsterol 53 mg/dL (0-99); LP-IR Score 27 (<=45); Small LDL- Particle 303 nmol/L (<=527); Triglycerides 58 mg/dL (0-149)
== END ==
PROVIDERS: Family Provider Family Medicine; PCP Family Medicine; Referring Provider Specialist; Visit Provider Specialist
DX: I10 Essential (primary) hypertension (principal); E78.5 Hyperlipidemia, unspecified
CPT/HCPCS: 36415; 80053; 80061; 83704; 83735

== ENCOUNTER → 2024-11-24 06:54 | Outpatient (CLI) | payer MEDICARE, OTHER, SELFPAY ==
--- NOTE | 2024-11-24 06:55 | DI.ECHO.S_ITS ---
[facility]+ [facility] : : [id number] : [address] : : [id number] : : Phone: [phone] Echocardiogram Report + + :Name: ADEEL LAGUNAS Study Date: 11/24/2024 Height: 66 in : :[facility] ReadingLocation: Weight: 162 lb : : Gender: Female BSA: 1.8 m2 : :: 1935 Age: 89 yrs BP: 153/93 mmHg: :Reason For Study: AORTIC STENOSIS : :Ordering Physician: JOSE, : :TRUNG Performed By: Essence Singletary : :Referring: TRUNG GARCIA : + + Interpretation Summary The left ventricular cavity is small. The ejection fraction is estimated to be 65-70%. Diastolic function could not be accurately assessed due to confounding valvular disease. The right ventricle is normal in size and function. There is a well-seated, normal functioning bioprosthetic aortic valve. There is mild tricuspid regurgitation. Pulmonary artery pressures cannot be estimated because of the lack of a measurable TR jet velocity but the IVC suggests a CVP of around 3 mmHg. Compared to the prior study 09/22/2023, no significant change. Procedure: A two-dimensional transthoracic echocardiogram with color flow and Doppler was performed. The study quality was technically adequate. Comparison is made with the echocardiogram of 09/22/2023. The patient was in sinus rhythm with heart rates between 71-85 bpm during the exam. Left Ventricle: The left ventricular cavity is small. There is normal left ventricular wall thickness. The estimated left ventricular end diastolic volume is 59 ml. The ejection fraction is estimated to be 65-70%. Diastolic function could not be accurately assessed due to confounding valvular disease. Right Ventricle: The right ventricle is normal in size and function. Atria: The left atrial size is normal. Right atrial size is normal. There is no Doppler evidence for an interatrial shunt. Mitral Valve: The mitral valve leaflets appear mildly thickened, but open well. There is moderate mitral annular calcification. The mitral valve leaflets are mildly calcified. The mitral valve chordae are thickened and/or calcified. The mitral valve mean gradient is 3.6 mmHg. There is trace mitral regurgitation. Aortic Valve: There is a bioprosthetic aortic valve. The prosthetic aortic valve is well-seated. The peak aortic velocity is 2.2 m/sec. The aortic valve mean gradient is 11 mmHg. No aortic regurgitation is present. Tricuspid Valve: The tricuspid valve leaflets are thin and pliable. There is mild tricuspid regurgitation. Pulmonary artery pressures cannot be estimated because of the lack of a measurable TR jet velocity but the IVC suggests a CVP of around 3 mmHg. Pulmonic Valve: The pulmonic valve leaflets are thin and pliable; valve motion is normal. There is mild to moderate pulmonic regurgitation. Great Vessels: The ascending aorta is at the upper limits of normal in size. The IVC is of normal diameter and collapses greater than 50% with a sniff. This suggests a low right atrial pressure of 3 mm Hg. Pericardium/ Pleura There is no pericardial effusion. There is no pleural effusion. MMode/2D Measurements & Calculations LVIDd: 3.9 cm LVOT diam: 2.0 cm LVIDs: 2.2 cm asc Aorta Diam: 3.4 cm FS: 43.4 % Ao Arch Diam (Prox Trans): 2.2 cm EPSS: 0.51 cm IVSd: 1.1 cm LVPWd: 0.87 cm LV zurita. diameter/BSA (cm/m^2): 2.1 LV sys. diameter/BSA (cm/m^2): 1.2 LA A2 area: 21.8 cm2 RA long axis: 4.7 cm LA A4 area: 17.2 cm2 RA area: 15.6 cm2 LA length (vol): 5.8 cm RA vol: 43.7 ml LA vol: 54.8 ml RA : 23.9 ml/m2 LA vol index: 30.0 ml/m2 IVC diam: 1.3 cm RVD1 (basal): 3.1 cm TAPSE: 1.7 cm Doppler Measurements & Calculations Ao V2 max: 219.6 cm/sec LVOT Max Dann: 111.2 cm/sec Ao V2 mean: 151.3 cm/sec LV V1 max P.9 mmHg Ao max P.3 mmHg LV V1 VTI: 25.0 cm Ao mean P.8 mmHg BRI(I,D): 1.7 cm2 Ao V2 VTI: 45.1 cm BRI(V,D): 1.5 cm2 sev ratio: 0.55 BRI indexed to BSA (cm^2/m^2): 0.91 MV E max dann: 117.2 cm/sec TR max dann: 256.0 cm/sec MV A max dann: 113.9 cm/sec TR max P.2 mmHg MV E/A: 1.0 PA V2 max: 104.2 cm/sec Med Peak E' Dann: 5.1 cm/sec PA V2 mean: 72.2 cm/sec E/E' med: 23.2 PA mean P.3 mmHg Lat Peak E' Dann: 4.5 cm/sec PA pr(Accel): 41.7 mmHg E/E' lat: 25.9 E/e' average: 24.6 MV dec time: 0.26 sec MVA(VTI): 2.1 cm2 MV V2 mean: 85.2 cm/sec SV(LVOT): 74.9 ml MV mean P.6 mmHg MV V2 VTI: 35.9 cm MV P1/2t-pr_phl: 92.7 msec Reading Physician:10:22 AM
== END ==
PROVIDERS: Family Provider Family Medicine; PCP Family Medicine; Referring Provider Family Medicine; Visit Provider Family Medicine
DX: I07.1 Rheumatic tricuspid insufficiency (principal); I10 Essential (primary) hypertension; I47.10 Supraventricular tachycardia, unspecified; Z95.2 Presence of prosthetic heart valve
CPT/HCPCS: 93306

== ENCOUNTER → 2024-12-27 14:16 | Outpatient (CLI) | payer MEDICARE, OTHER, SELFPAY ==
--- NOTE | 2024-12-27 14:18 | DI.RAD.S_ITS ---
PROCEDURE: XR FOOT LT MIN 3V INDICATIONS: Unspecified injury of left foot, initial encounter TECHNIQUE: 3 views of the foot were acquired. COMPARISON: [facility], CR, XR FOOT RT MIN 3V, 04/27/2024, 10:52. FINDINGS: Bones: Nondisplaced transverse fracture of the 5th metatarsal base appreciated. There widening of the fracture line and mild patchy sclerosis surrounding the fracture: suspect this is subacute or chronic. There is also a equivocal transverse fracture of the distal aspect of the 5th proximal phalanx. Cortical step-off is seen in this region Joints: Mild degenerative change noted in the 1st MTP and all interphalangeal joints Soft tissues: Heavy calcification Achilles and plantar tendon insertions . There is mild diffuse soft tissue swelling IMPRESSION: Chronic appearing nondisplaced transverse fracture of the 5th metatarsal base. Equivocal fracture of the 5th proximal phalanx -please correlate with point tenderness in this region Other chronic findings -as described Dictated by: Jones Padron M.D. on 12/28/2024 at 13:10 Approved by: Jones Padron M.D. on 12/28/2024 at 13:13
== END ==
PROVIDERS: Family Provider Family Medicine; PCP Family Medicine; Referring Provider Registered Nurse; Visit Provider Registered Nurse
DX: S92.355A Nondisplaced fracture of fifth metatarsal bone, left foot, initial encounter for closed fracture (principal); S92.515A Nondisplaced fracture of proximal phalanx of left lesser toe(s), initial encounter for closed fracture; M79.89 Other specified soft tissue disorders; M79.672 Pain in left foot; X58.XXXA Exposure to other specified factors, initial encounter
CPT/HCPCS: 73630

== ENCOUNTER → 2025-01-17 16:12 | Outpatient (CLI) | payer MEDICARE, OTHER, SELFPAY ==
--- NOTE | 2025-01-17 16:15 | DI.US.S_ITS ---
PROCEDURE: US CAROTID DOPPLER BI INDICATIONS: carotid stenosis TECHNIQUE: Color and pulse Doppler interrogation was performed of both carotid systems, with image documentation and velocity measurements. COMPARISON: [facility], , US CAROTID DOPPLER BI, 09/09/2024, 8:49. FINDINGS: Stenosis calculations are based on SRU (Society of Radiologists in Ultrasound) criteria. Right side: Brachial blood pressure: 123/71 mm Hg. Common carotid artery peak systolic velocity: 53 cm/sec. Internal carotid artery peak systolic velocity: 140 cm/sec. (Previously 230 cm/sec). Internal carotid artery end diastolic velocity: 23 cm/sec. External carotid artery peak systolic velocity: 151 cm/sec. ICA/CCA peak systolic ratio: 2.6. (Previously 4.0). Linn scale imaging description: Stent is present. Percent internal carotid artery stenosis: 50-69% stenosis. Vertebral artery: Flow direction is antegrade. Left side: Common carotid artery peak systolic velocity: 83 cm/sec. Internal carotid artery peak systolic velocity: 81 cm/sec. (Previously 92 cm/sec). Internal carotid artery end diastolic velocity: 26 cm/sec. External carotid artery peak systolic velocity: 231 cm/sec. ICA/CCA peak systolic ratio: 1.0. (Previously 1.4). Linn scale imaging description: Mild plaque. Percent internal carotid artery stenosis: Less than 50% stenosis. . Vertebral artery: Flow direction is antegrade. IMPRESSION: 1. Right ICA: ICA stent. 50-69% stenosis. 2. Left ICA: Less than 50 % stenosis. 3. Antegrade flow in the bilateral vertebral arteries. Dictated by: Leon Lama M.D. on 01/18/2025 at 16:55 Approved by: Leon Lama M.D. on 01/18/2025 at 17:00
== END ==
LOC: US 16:14
PROVIDERS: Family Provider Family Medicine; PCP Family Medicine; Referring Provider Surgery Vascular Surgery; Visit Provider Surgery Vascular Surgery
DX: I65.23 Occlusion and stenosis of bilateral carotid arteries (principal)
CPT/HCPCS: 93880

== ENCOUNTER 2025-03-07 12:32 | Emergency (ER) | payer MEDICARE, OTHER, SELFPAY ==
[2025-03-07] VITALS (13 sets, daily range): BP systolic 154–219; BP diastolic 73–108; PULSE 78–100; RESP 16–24; TEMP 36.7; O2SAT 95–98; BMI 25.0
--- NOTE | 2025-03-07 12:42 | DI.RAD.S_ITS ---
PROCEDURE: XR CHEST 1V INDICATIONS: Chest Pain TECHNIQUE: One view of the chest was acquired. COMPARISON: [facility], CR, XR CHEST 1V, 06/15/2024, 23:50. FINDINGS: Surgical changes and devices: Postoperative clips of the left breast can be seen. A percutaneously placed aortic valve replacement can be seen. Lungs and pleura: An incomplete inspiratory result is noted, causing a crowded appearance to the lung markings. No focal infiltrates are seen. No pneumothorax or significant pleural effusions are seen. Mediastinum: Mediastinal contours appear normal. Heart size is normal. Atherosclerotic calcification of the aortic arch is noted. Bones and chest wall: No suspicious bony lesions. Age-appropriate bony degenerative changes are seen. Overlying soft tissues appear unremarkable. IMPRESSION: Low lung volumes, without an acute abnormality seen by plain film. Dictated by: Vivek Dutton M.D. on 03/07/2025 at 12:18 Approved by: Vivek Dutton M.D. on 03/07/2025 at 12:19
--- NOTE | 2025-03-07 12:47 | EKG_ITS ---
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
[2025-03-07 13:20] LABS: Add Manual Diff / Slide Review NO; Hematocrit 37.8 % (36-46); Hemoglobin 13.3 g/dL (12.0-16.0); Lymphocytes Absolute Auto 1100 /uL (1100-4500); Mean Corpuscular HGB Conc 35.3 % (30-36); Mean Corpuscular Hemoglobin 32.6 PG (26-34); Mean Corpuscular Volume 92.4 fL (80-100); Platelet Count 192 X10^3/uL (150-400)
[2025-03-07 13:28] LABS: INR 1.1 (0.9-1.3); Prothrombin Time 12.4 SECONDS (9.4-12.5)
[2025-03-07 13:30] LABS: PTT Partial Thromboplastin Tim 29 SECONDS (25.1-36.5)
[2025-03-07 13:31] LABS: Alanine Aminotransferase 27 IU/L (<35); Albumin 4.4 g/dL (3.5-5.0); Albumin Globulin Ratio 1.6 (1.0-2.8); Alkaline Phosphatase 95 U/L (38-126); Blood Urea Nitrogen 9 mg/dL (7-17); Calcium 8.9 mg/dL (8.4-10.2); Carbon Dioxide 24 mmol/L (22-32); Chloride 96 mmol/L (98-107); Creatine Kinase 96 U/L (30-135); Estimated Glomerular Filt Rate > 60 mL/min (>60); Globulin 2.8 g/dL (1.7-4.1); Glucose 98 mg/dL (70-99); HEMOLYSIS 19 (0-50); Lipase 51 U/L (23-300); Magnesium 1.7 mg/dL (1.6-2.3); Potassium 4.0 mmol/L (3.4-5.1); Sodium 128 mmol/L (137-145); Total Protein 7.2 g/dL (6.3-8.2)
[2025-03-07 13:43] LABS: NT-proBNP (BNP-Adult 18+) 424 pg/mL (<450); Troponin I < 0.012 ng/mL (0.01-0.034)
--- NOTE | 2025-03-07 15:04 | ED.CHESTPAIN ---
HPI - Chest Pain General Chief Complaint: Chest Pain Stated Complaint: High blood pressure , Irregular heart beat Time Seen by Provider: 03/07/25 13:15 Source: patient Mode of arrival: Ambulatory Limitations: no limitations History of Present Illness HPI narrative: 89-year-old female patient with a history of dyslipidemia, hypothyroidism and hypertension, although she stopped taking blood pressure medications a few years ago. She complains of left parasternal sharp and achy pain since 9:00 a.m. this morning which resolved when she came to the emergency room. No longer has pain. No shortness of breath, diaphoresis or nausea. Related Data Home Medications ?Medication ?Instructions ?Recorded ?Confirmed amitriptyline 25 mg tablet 25 mg PO DAILY 07/07/18 02/24/25 aspirin 81 mg tablet,delayed 81 mg PO DAILY 07/07/18 02/24/25 release atorvastatin 80 mg tablet 80 mg PO DAILY 07/07/18 02/24/25 carvedilol 12.5 mg tablet 12.5 mg PO SEEINSTR 07/07/18 02/24/25 magnesium oxide 500 mg capsule 500 mg PO DAILY 07/07/18 02/24/25 levothyroxine 50 mcg tablet 50 mcg PO DAILY 10/05/23 02/24/25 Previous Rx's ?Medication ?Instructions ?Recorded benzonatate 200 mg capsule 200 mg PO BID PRN cough #28 caps 10/05/23 ipratropium bromide 21 mcg (0.03 2 spray intranasal BID PRN allergy 10/05/23 %) nasal spray symptoms #30 mL tramadol 50 mg tablet 50 mg PO Q6H PRN pain #10 tabs 11/22/23 doxycycline hyclate 100 mg capsule 100 mg PO BID #14 caps 01/30/24 Allergies Allergy/AdvReac Type Severity Reaction Status Date / Time lisinopril Allergy Severe Angioedema/ Verified 02/24/25 09:53 Anaphylaxis benazepril (From Lotensin) Allergy Intermediate kidney Verified 02/24/25 09:53 failure morphine Allergy Intermediate VOMITING, Verified 02/24/25 09:53 HIVES metoprolol Allergy Unknown KIDNEY Verified 02/24/25 09:53 FAILURE simvastatin Allergy Pt does Verified 02/24/25 09:53 not remember reaction meperidine AdvReac Mild NAUSEA Verified 02/24/25 09:53 Review of Systems Review of Systems Narrative: GENERAL: Denies chills, fatigue, malaise, fever, sweats. HEENT: Denies sinus pain, ear pain, sore throat, difficulty swallowing, dizziness. RESPIRATORY: Denies dyspnea, cough, wheezing, hemoptysis, sputum. CARDIOVASCULAR: See HPI. Denies palpitations, orthopnea, edema, GASTROINTESTINAL: Denies nausea, vomiting, abdominal pain, diarrhea, constipation, melena. : Denies dysuria, frequency, incontinence, hematuria, urinary retention. MUSCULOSKELETAL: denies weakness, joint pain, or bony pain SKIN: Denies rash, skin lesions, or other NEUROLOGIC: Denies weakness, headache, numbness, change in speech, confusion, seizures, incoordination. PSYCHIATRIC: No concerning psychosocial issues. 12 point review of systems is negative except for those stated above Patient History Medical History SVT (supraventricular tachycardia) Palpitations RBBB (right bundle branch block) Dyspnea Compression fracture of L2 (10/2011) Atypical chest pain Unstable angina Osteoporosis Osteoarthritis Hypothyroid Hx of acute renal failure Hepatitis A Fibromyalgia HLD (hyperlipidemia) CAD (coronary artery disease) Cellulitis Skin abrasion Breast cancer Hypertension History of ME (myocardial infarction) Heart valve stenosis Surgical History Hx of vertebroplasty (12/2011) History of tonsillectomy and adenoidectomy History of total right knee replacement (12/20/14) History of mastectomy (1999) Hx of foot surgery (1996) History of open reduction and internal fixation (ORIF) procedure (1987) History of coronary artery bypass graft (2003) Hx of coronary angioplasty (09/1993) History of cataract extraction History of back surgery History of cardiac cath (09/2018) 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 Well-developed patient, in mild distress. HEAD: Atraumatic. Normocephalic. EYES: Pupils equal round and reactive. Extraocular motions intact. No scleral icterus. No injection or drainage. ENT: Nose without bleeding, purulent drainage. Throat without erythema, tonsillar hypertrophy or exudate. Airway patent. NECK: Trachea midline. Non tender CARDIOVASCULAR: Regular rate and rhythm without murmurs, gallops, or rubs. RESPIRATORY: Clear to auscultation. Breath sounds equal bilaterally. No wheezes, rales, or rhonchi. GASTROINTESTINAL: Abdomen soft, non-tender, nondistended. EXTREMITIES: No edema or joint tenderness. BACK: Nontender without deformity or crepitance. No flank tenderness. NEURO: AOx3. SKIN: No rash or erythema of visible areas Initial Vital Signs Initial Vital Signs: Vital Signs Temperature 98.1 F 03/07/25 12:35 Pulse Rate 83 03/07/25 12:35 Respiratory Rate 18 03/07/25 12:35 Blood Pressure 170/85 H 03/07/25 12:35 Pulse Oximetry 98 03/07/25 12:35 Oxygen Delivery Method Room Air 03/07/25 12:35 Course Orders Ordered: ED Orders 03/07/25 12:42 XR chest 1V Stat EKG-12 Lead Stat 03/07/25 13:10 Complete Blood Count AUTO DIFF Stat Comprehensive Metabolic Panel Stat Lipase Stat Magnesium Stat NT-proBNP (BNP-Adult 18+) Stat PTT Partial Thromboplastin Pérez Stat Prothrombin Time INR Stat Troponin & CK Cardiac Panel Stat 03/07/25 15:35 Troponin I Stat Discontinued Medications Aspirin (Aspirin 81 Mg Chew Tab) 324 mg PO NOW ONE Stop: 03/07/25 12:43 Last Admin: 03/07/25 15:03 Dose: Not Given Documented By: GW Vital Signs Vital signs: Vital Signs - 8 hr 03/07/25 12:35 03/07/25 14:18 03/07/25 14:30 Temperature 98.1 F Pulse Rate 83 90 78 Respiratory Rate 18 24 19 Blood Pressure 170/85 H Pulse Oximetry 98 95 97 Oxygen Delivery Method Room Air 03/07/25 14:30 03/07/25 14:46 03/07/25 14:46 Temperature Pulse Rate 81 Respiratory Rate 20 Blood Pressure 164/80 H 212/91 H Pulse Oximetry 98 Oxygen Delivery Method 03/07/25 14:57 03/07/25 14:57 03/07/25 15:00 Temperature Pulse Rate 88 100 H Respiratory Rate 22 Blood Pressure 175/99 H Pulse Oximetry 97 95 Oxygen Delivery Method 03/07/25 15:01 03/07/25 15:01 03/07/25 15:15 Temperature Pulse Rate 92 H 80 Respiratory Rate 20 23 Blood Pressure 219/108 H Pulse Oximetry 98 97 Oxygen Delivery Method 03/07/25 15:15 03/07/25 15:30 03/07/25 15:30 Temperature Pulse Rate 82 Respiratory Rate 19 Blood Pressure 169/90 H 181/84 H Pulse Oximetry 98 Oxygen Delivery Method 03/07/25 15:45 03/07/25 15:45 03/07/25 16:00 Temperature Pulse Rate 80 79 Respiratory Rate 16 16 Blood Pressure 179/86 H Pulse Oximetry 98 98 Oxygen Delivery Method 03/07/25 16:00 03/07/25 16:15 03/07/25 16:15 Temperature Pulse Rate 81 Respiratory Rate 21 Blood Pressure 158/73 H 166/81 H Pulse Oximetry 96 Oxygen Delivery Method 03/07/25 16:30 03/07/25 16:30 Temperature Pulse Rate 83 Respiratory Rate 17 Blood Pressure 154/73 H Pulse Oximetry 98 Oxygen Delivery Method MDM - Chest Pain Lab Data Attestation: I reviewed the patient's lab results. (Negative troponin x2) 03/07/25 13:10 03/07/25 13:10 Labs: Lab Results 03/07/25 03/07/25 Range/Units 13:10 15:35 WBC 9.6 (4.5-11.0) X10^3/uL RBC 4.09 (4.0-5.2) X10^6/uL Hgb 13.3 (12.0-16.0) g/dL Hct 37.8 (36-46) % MCV 92.4 (80-100) fL MCH 32.6 (26-34) PG MCHC 35.3 (30-36) % RDW 13.1 (11.6-14.8) % Plt Count 192 (150-400) X10^3/uL Neut % (Auto) 73.2 (50-75) % Lymph % (Auto) 11.7 L (25-40) % [place] % (Auto) 8.2 (3-14) % Eos % (Auto) 6.5 H (2-4) % Baso % (Auto) 0.4 (0-2) % Neut # (Auto) 7000 (2104-9568) /uL Lymph # (Auto) 1100 (4378-5807) /uL [place] # (Auto) 800 (0-900) /uL Eos # (Auto) 600 H (0-450) /uL Baso # (Auto) 0 (0-100) /uL PT 12.4 (9.4-12.5) SECONDS INR 1.1 (0.9-1.3) APTT 29 (25.1-36.5) SECONDS Sodium 128 L (137-145) mmol/L Potassium 4.0 (3.4-5.1) mmol/L Chloride 96 L (98-107) mmol/L Carbon Dioxide 24 (22-32) mmol/L BUN 9 (7-17) mg/dL Creatinine 0.60 (0.52-1.04) mg/dL Estimated GFR > 60 (>60) mL/min BUN/Creatinine Ratio 15.0 (6-22) Glucose 98 (70-99) mg/dL Calcium 8.9 (8.4-10.2) mg/dL Magnesium 1.7 (1.6-2.3) mg/dL Total Bilirubin 0.9 (0.2-1.3) mg/dL AST 36 (14-36) IU/L ALT 27 (<35) IU/L Alkaline Phosphatase 95 (38-126) U/L Total Creatine Kinase 96 (30-135) U/L Troponin I < 0.012 < 0.012 (0.01-0.034) ng/mL NT-Pro-B Natriuret Pep 424 (<450) pg/mL Total Protein 7.2 (6.3-8.2) g/dL Albumin 4.4 (3.5-5.0) g/dL Globulin 2.8 (1.7-4.1) g/dL Albumin/Globulin Ratio 1.6 (1.0-2.8) Lipase 51 (23-300) U/L Imaging Data Chest x-ray: Attestation: I personally reviewed and interpreted this imaging study as follows: (No acute disease. ) ECG Data Attestation: I personally reviewed and interpreted this ECG as follows: (Sinus rhythm with sinus arrhythmia. RBBB. Rate 87. No ischemic changes otherwise) MDM Narrative Medical decision making narrative: Multiple causes of chest pain considered including ME, PE, pneumothorax, pneumonia, aortic dissection, and pleurisy. Patient reports no radiation, no diaphoresis, no provocation with exertion, and no vomiting Patient had atypical chest pain transiently which has resolved since she has been in the ER with no further symptoms. Troponin negative x2. She did have blood pressure elevations size systolic of 219. However she is now returned to a systolic of 159. She says she has these fluctuations sometimes. No further symptoms in the ER. Plan and is discharged home with monitor symptoms and blood pressure and follow up with her doctor within the next week to assess blood pressure. Return to the ER for any further symptoms. Discharge Plan Departure Patient Disposition: Home Clinical Impression: Atypical chest pain, Elevated blood pressure reading Instructions: Essential Hypertension, DI for Atypical Chest Pain Activity Restrictions/Additional Instructions: Plan: Monitor symptoms and monitor blood pressure. Follow up with your doctor within the next week to discuss blood pressure management. Return to the ER if worse Prescriptions: No Action levothyroxine 50 mcg tablet 50 mcg PO DAILY benzonatate 200 mg capsule 200 mg PO BID PRN (Reason: cough) Qty: 28 0RF ipratropium bromide 21 mcg (0.03 %) spray,non-aerosol 2 spray intranasal BID PRN (Reason: allergy symptoms) Qty: 30 0RF Rx Instructions: administer into each nostril amitriptyline 25 mg tablet 25 mg PO DAILY aspirin 81 mg tablet,delayed release (DR/EC) 81 mg PO DAILY atorvastatin 80 mg tablet 80 mg PO DAILY carvedilol 12.5 mg tablet 12.5 mg PO SEEINSTR Rx Instructions: Pt takes 6.25mg qam 12.5mg qpm per pt magnesium oxide 500 mg capsule 500 mg PO DAILY tramadol 50 mg tablet 50 mg PO Q6H PRN (Reason: pain) Qty: 10 0RF doxycycline hyclate 100 mg capsule 100 mg PO BID Qty: 14 0RF Referrals: Telma Ivy MD [Primary Care Provider, Family Practice] Stand Alone Forms: Patient Portal/API
[2025-03-07 16:06] LABS: Troponin I < 0.012 ng/mL (0.01-0.034)
== END 2025-03-07 16:57 | disposition home or self-care (01) ==
PROVIDERS: Emergency Provider Emergency Medicine; Family Provider Family Medicine; PCP Family Medicine
DX: R07.89 Other chest pain (principal); I10 Essential (primary) hypertension
CPT/HCPCS: 36415; 71045; 80053; 82550; 83690; 83735; 83880; 84484; 85025; 85610; 85730; 93005; 99283; 99284

== ENCOUNTER → 2025-04-28 16:51 | Outpatient (CLI) | payer MEDICARE, OTHER, SELFPAY ==
--- NOTE | 2025-04-28 16:54 | DI.MRI.S_ITS ---
PROCEDURE: MR STROKE Pre- and post-contrast brain MRI, non-contrast brain MR angiogram, pre- and postcontrast neck MR angiogram INDICATIONS: TIA TECHNIQUE: Brain: Noncontrast axial T1 spin echo, axial T2 fast spin echo, sagittal and axial FLAIR, coronal T2 fast spin echo, axial gradient echo, axial diffusion and ADC through the brain. After the administration of contrast, axial 3D VIBE of the cranial vasculature and brain. Brain MRA: Non-contrast 3-D time of flight MR angiogram, with multiple wvtwenx-fupnbndmt-ixmjzwwgdp (MIP) reformats performed. Neck MRA: Axial and sagittal TruFISP through the neck. Coronal dynamic MR angiogram during administration of contrast in the arterial and venous phases, with 3- dimenstional uxavfib-kbkjgfuhu-ymbjtthidd (MIP) reformats constructed from subtraction images. COMPARISON: [facility], MR, MR STROKE, 06/09/2024, 12:44. [facility], CT, CT ANGIO HEAD AND NECK, 07/04/2024, 15:28. FINDINGS: Image quality: Excellent. BRAIN: CSF spaces: Ventricles are normal in size and shape. Basal cisterns are patent. No extra-axial fluid collections. Brain: No intracranial bleeds or mass effects. [place]-white matter interface is normal. Diffusion weighted images show no acute infarct. Brainstem appears normal. Normal intravascular flow voids are present. No abnormal intracranial enhancement. Note is made of age-appropriate brain parenchymal volume loss and chronic small vessel ischemic changes, including within the [place]. Skull and face: Calvarial marrow signal is normal. Orbits appear normal. Note is made of bilateral lens replacements. Incidental note is made of hyperostosis frontalis. This is not considered to be pathologic in a woman of this age. Sinuses: Mild scattered mucosal thickening can be seen within the paranasal sinuses. No abnormal fluid is seen within the mastoid air cells. BRAIN MR ANGIOGRAM: Anterior circulation: Intracranial internal carotid arteries are normal in size and enhancement. The flow within the paired anterior cerebral arteries is normal and symmetric. The flow within the middle cerebral arteries is normal and symmetric. The anterior communicating artery is seen. No stenoses, occlusions, or aneurysms. Posterior circulation: The visualized portions of the vertebral arteries demonstrate normal caliber, and join to form a normal appearing basilar artery. The flow within the posterior cerebral arteries is normal and symmetric. No stenoses, occlusions, or aneurysms. NECK MR ANGIOGRAM: Carotids: Great vessels demonstrate a conventional anatomy as they arise from the aortic arch. The origins of the common carotid arteries appear patent. There is significant narrowing seen involving the distal right common carotid artery, with up to 80% narrowing distally. Carotid bifurcation irregularity is seen. The left proximal internal carotid artery demonstrates no significant narrowing. This is clearly improved compared to the prior CT. The right proximal internal carotid artery demonstrates up to 90% narrowing. Posterior circulation: The origins of the vertebral arteries appear patent. More superior portions of both vertebral arteries demonstrate normal course and caliber, and join to form a normal appearing basilar artery. Miscellaneous: Subclavian arteries appear patent. Pre-contrast images through the neck show no soft tissue abnormalities. IMPRESSION: BRAIN MRI: No findings of acute or subacute infarction can be seen. Note is made of age-appropriate brain parenchymal volume loss and chronic small vessel ischemic changes. No masses or abnormal enhancement can be seen. Mild scattered paranasal sinus disease noted. BRAIN MR ANGIOGRAM: No significant intracranial arterial abnormality is seen. NECK MR ANGIOGRAM: There is up to 80% narrowing seen involving the right distal common carotid artery. Up to 90% narrowing seen involving origin of the right internal carotid artery. Interval left carotid endarterectomy. No significant vertebral artery abnormality is seen. Dictated by: Vivek Dutton M.D. on 04/28/2025 at 17:40 Approved by: Vivek Dutton M.D. on 04/28/2025 at 17:46
== END ==
LOC: MRI 16:52
PROVIDERS: Family Provider Family Medicine; PCP Family Medicine; Referring Provider Family Medicine; Visit Provider Family Medicine
DX: G45.9 Transient cerebral ischemic attack, unspecified (principal); I65.21 Occlusion and stenosis of right carotid artery
CPT/HCPCS: 70544; 70549; 70553; A9579

== ENCOUNTER → 2025-06-07 10:29 | Outpatient (CLI) | payer MEDICARE, OTHER, SELFPAY ==
--- NOTE | 2025-06-07 | DI.CT.S_ITS ---
PROCEDURE: CT ANGIO HEAD AND NECK INDICATIONS: CAROTID STENOSIS TECHNIQUE: After the administration of intravenous contrast, 1 mm thick sections acquired from the aortic arch through the [place]. 3-dimensional etezkgb-nhbbxttch-hklgloddsn (MIP) and/or volume rendering reformats were acquired of the central intracranial vasculature and neck separately. For radiation dose reduction, the following was used: automated exposure control, adjustment of mA and/or kV according to patient size. COMPARISON: None. FINDINGS: Image quality: Diagnostic. Cerebral CT Angiogram: Internal carotid arteries: Normal flow in the intracranial internal carotid arteries. Atherosclerotic calcifications noted in the cavernous and clinoid segments of the internal carotid arteries bilaterally which causes moderate stenosis of the vessels. No occlusion. No aneurysm. Anterior cerebral arteries: Unremarkable. No significant stenosis. No occlusion. No aneurysm. Middle cerebral arteries: Unremarkable. No significant stenosis. No occlusion. No aneurysm. Posterior cerebral arteries: Unremarkable. No significant stenosis. No occlusion. No aneurysm. Basilar artery: Unremarkable. No significant stenosis. No occlusion. No aneurysm. Vertebral arteries: Unremarkable as visualized. Dural venous sinuses: Unremarkable given phase of enhancement. Other: Arterial phase appearance of the brain parenchyma is unremarkable. Neck CT Angiogram: Internal carotid arteries: Left internal carotid artery endovascular stent. There is high-grade greater than 90% stenosis near occlusion involving the mid stent. Left internal carotid artery endarterectomy changes. No significant stenosis involving the left internal carotid artery.No dissection or occlusion. Common carotid arteries: Atherosclerotic calcifications in the origin of the right common carotid artery which causes mild narrowing of the vessel. Atherosclerotic calcification in the origin of the left common carotid artery which causes moderate stenosis. No dissection or occlusion. External carotid arteries: Unremarkable. No occlusion. Vertebral arteries: Unremarkable. No significant stenosis. No dissection or occlusion. Aortic Arch and Mediastinum: Partially visualized aortic arch unremarkable without evidence of aneurysm. Atherosclerotic calcification the origin of the left subclavian artery which causes moderate to severe stenosis. Other: Arterial phase soft tissues of the neck and chest are unremarkable. Spine degenerative disc disease and facet arthropathy. IMPRESSION: Right internal carotid artery endovascular stent. There is high-grade, greater than 90% right internal carotid artery in stent stenosis. Left internal carotid endarterectomy. No significant left internal carotid artery stenosis. No stenosis involving the vertebral arteries. No large vessel occlusion , vascular dissection or aneurysm. Any quantitative measurements of stenosis were performed using NASCET criteria. Dictated by: Shaniqua Berger MD, PhD on 06/07/2025 at 12:06 Approved by: Shaniqua Berger MD, PhD on 06/07/2025 at 12:15
[2025-06-07 10:56] LABS: Estimated Glomerular Filt Rate > 60 mL/min (>60)
== END ==
PROVIDERS: Family Provider Family Medicine; PCP Family Medicine; Referring Provider Surgery Vascular Surgery; Visit Provider Surgery Vascular Surgery
DX: I65.23 Occlusion and stenosis of bilateral carotid arteries (principal); I70.8 Atherosclerosis of other arteries; Z95.820 Peripheral vascular angioplasty status with implants and grafts
CPT/HCPCS: 36415; 70496; 70498; 82565; Q9967